=== PATIENT | female | born 1985 | race Caucasian/White ===

== ENCOUNTER 2022-01-18 22:10 | Emergency (ER) | payer OTHER, SELFPAY ==
--- NOTE | 2022-01-18 22:24 | CRLHL7_ITS ---
For Patients: As a result of the Century Cures Act, medical imaging exams and procedure reports are released immediately into your electronic medical record. You may view this report before your referring provider. If you have questions, please contact your health care provider. Indication: Shortness of breath Technique: Chest 1 view Comparison: Chest CT October 21, 2011 Findings/Impression: Cardiovascular and mediastinum: Status post median sternotomy. Heart size and vasculature are normal in caliber and appearance. Mediastinum is within normal limits. Lungs and pleural space: Lungs are clear. No sign of infiltrate or mass. No sign of pleural effusion. No pneumothorax. Bones and soft tissues: No significant findings. Dictated by Génesis Mas MD @ 01/18/2022 11:19:46 PM (Electronically Signed)
--- NOTE | 2022-01-18 22:27 | CRLHL7_ITS ---
For Patients: As a result of the Century Cures Act, medical imaging exams and procedure reports are released immediately into your electronic medical record. You may view this report before your referring provider. If you have questions, please contact your health care provider. INDICATION: Shortness of breath. COMPARISON: CT chest, abdomen, pelvis 10/21/2011. Chest radiograph 01/18/2022. TECHNIQUE: CT of the chest with 95 cc of Isovue 370 IV contrast. Coronal and sagittal reconstructions. FINDINGS: Normal heart size. Normal caliber thoracic aorta and central pulmonary arteries. Interval postoperative changes of sternotomy with aortic valve replacement. Retained epicardial pacer wires. Negative for acute pulmonary embolism. No pericardial effusion. No thoracic lymphadenopathy. The imaged thyroid gland is normal in appearance. No focal consolidation, pleural effusion, or pneumothorax. Stable 4 mm noncalcified pulmonary nodule in the lateral right lower lobe which is unchanged since 2012 and should be benign (series 5, image 105). No central endobronchial lesion or bronchial wall thickening. The visualized upper abdomen is unremarkable. The bones are within normal limits. IMPRESSION: 1. Negative for acute pulmonary embolism. No other acute findings in the chest. 2. Interval sternotomy with aortic valve replacement. Please note that all CT scans at this facility use dose modulation, iterative reconstruction, and/or weight-based dosing when appropriate to reduce radiation dose to as low as reasonably achievable. Dictated by Lucille Bills MD @ 01/19/2022 12:20:28 AM (Electronically Signed)
--- NOTE | 2022-01-18 22:27 | ED_ITS ---
HPI - General Adult General Time Seen by Provider: :20 <Jake Mcdonald MD - Last Filed: 01/18/22 23:03> Date Seen: 01/18/22 <Jake Mcdonald MD - Last Filed: 01/18/22 23:03> Chief complaint: Shortness of Breath/Dyspnea <Jake Mcdonald MD - Last Filed: 01/18/22 23:03> Stated complaint: Chest pain, SOB, post open heart surgery <Jake Mcdonald MD - Last Filed: 01/18/22 23:03> Time Seen by Provider: 01/18/22 22:26 <Jake Mcdonald MD - Last Filed: 01/18/22 23:03> Source: patient and old records reviewed <Jake Mcdonald MD - Last Filed: 01/18/22 23:03> Mode of arrival: ambulatory <Jake Mcdonald MD - Last Filed: 01/18/22 23:03> Limitations: no limitations <Jake Mcdonald MD - Last Filed: 01/18/22 23:03> History of Present Illness HPI narrative: 36-year-old female who presents today with shortness of breath. She had an aortic valve replacement about 10 months ago. She has had increased shortness of breath which is been ongoing but significantly worse in the last 2 days, developed some chest tightness tonight as well. She has been taking diuretic and is down about 12 lb. Denies cough. Did have orthopnea but since her diuresis says that is improved. Denies nausea, vomiting, diarrhea. No fevers or chills. She has noted that her heart rate has been high, took an extra 50 mg of metoprolol today. <Jake Mcdonald MD - Last Filed: 01/18/22 23:03> Related Data Home medications: Home Medications Medication Instructions Recorded Confirmed dextroamphetamine-amphetamine .ROUTE 01/18/22 furosemide 20 mg tablet mg 01/18/22 metoprolol tartrate 25 mg tablet mg 01/18/22 potassium chloride 20 mEq meq PO 01/18/22 tablet,extended release warfarin 3 mg tablet mg 01/18/22 <Jake Mcdonald MD - Last Filed: 01/18/22 23:03> Allergies/adverse reactions: Allergies Allergy/AdvReac Type Severity Reaction Status Date / Time terbutaline Allergy Unknown Verified 01/18/22 22:47 <Jake Mcdonald MD - Last Filed: 01/18/22 23:03> Review of Systems Status of ROS: Reports: 10 or more systems reviewed and unremarkable except as noted in History and below <Jake Mcdonald MD - Last Filed: 01/18/22 23:03> [facility] Social History: Social History Smoking Status: Unknown if ever smoked Do you use any of these nicotine containing products: None Second hand tobacco smoke exposure: No How often do you have a drink containing alcohol: never How many standard drinks containing alcohol do you have on a typical day: 1 or 2 How often do you have six or more drinks on one occasion: Never AUDIT-C Alcohol total score: 0 Non-prescribed substance use: denies use <Jake Mcdonald MD - Last Filed: 01/18/22 23:03> Exam Narrative: Exam Narrative: General: Well-developed and well-nourished, anxious appearing with breathlessness and respiratory distress Head: Atraumatic and normocephalic Eyes: Pupils are equal reactive, extraocular motions intact, conjunctiva clear ENT: External nose and ears are normal, posterior pharynx without erythema or exudate Neck: No midline cervical tenderness, full spontaneous range of motion the neck, trachea midline, no adenopathy Heart: Tachycardic with slight valve click Lungs: Diminished in the bases bilaterally, no wheezes or crackles, tachypnea Abdomen: Soft, nontender, nondistended with active bowel sounds Musculoskeletal: No tenderness, deformity, or edema Neurologic: Awake, alert, and oriented x3, no gross focal neurologic deficits, cranial nerves intact as tested Psych: Mood and affect are appropriate Skin: No rashes <Jake Mcdonald MD - Last Filed: 01/18/22 23:03> Const: Vital Signs, click to edit/add: Vital Signs - 24 hr 01/18/22 22:37 01/18/22 23:00 01/18/22 22:57 Pulse Rate [Pulse Oximeter] 119 H 117 H 113 H Respiratory Rate 30 H 28 H 28 H Blood Pressure [Ri ght Upper Arm] 135/93 H 115/74 100/72 Pulse Oximetry 97 95 Oxygen Delivery Me thod Room Air Room Air 01/18/22 22:48 Pulse Rate [Pulse Oximeter] 112 H Respiratory Rate 24 Blood Pressure [Ri ght Upper Arm] 90/49 L Pulse Oximetry 95 Oxygen Delivery Me thod Room Air <Jake Mcdonald MD - Last Filed: 01/18/22 23:03> Vital Signs, click to edit/add: Vital Signs - 24 hr 01/18/22 22:37 01/18/22 23:00 01/18/22 22:57 Pulse Rate [Pulse Oximeter] 119 H 117 H 113 H Respiratory Rate 30 H 28 H 28 H Blood Pressure [Ri ght Upper Arm] 135/93 H 115/74 100/72 Pulse Oximetry 97 95 Oxygen Delivery Me thod Room Air Room Air 01/18/22 22:48 Pulse Rate [Pulse Oximeter] 112 H Respiratory Rate 24 Blood Pressure [Ri ght Upper Arm] 90/49 L Pulse Oximetry 95 Oxygen Delivery Me thod Room Air <Herb Martinez MD - Last Filed: 01/19/22 01:26> Documenting provider has reviewed patient's vital signs: yes <Jake Mcdonald MD - Last Filed: 01/18/22 23:03> Course Course Hospital Course: Patient seen and examined immediately on arrival, prior records reviewed. Differential diagnosis includes but not limited to acute heart failure, hemothorax, pneumothorax, pleural effusion, pulmonary embolism, dysrhythmia, pericardial effusion, acute coronary syndrome. Patient with aortic valve replacement about 10 months ago, presents with shortness of breath and chest pressure. On initial exam, oxygen saturation 98% on room air, patient is tachypneic and tachycardic with breathlessness, diminished breath sounds at the bases. Bedside ultrasound demonstrates question of trace pericardial effusion. Labs, EKG, x-ray ordered in CT PE protocol will be ordered as well. Risk of pulmonary embolism is low given the fact patient is not anticoagulated but will look for other intrathoracic findings that could cause symptoms including but not limited to pericardial effusion, pulmonary edema. <Jake Mcdonald MD - Last Filed: 01/18/22 23:03> Reevaluation(s) Reevaluation #1: Potassium 2.7 , Iv and oral replacement ordered. <Jake Mcdonald MD - Last Filed: 01/18/22 23:03> Time: 23:03 <Jake Mcdonald MD - Last Filed: 01/18/22 23:03> Reevaluation #2: CT of the chest was unremarkable. Her heart rate came down to about 115- 120. She short of breath with activity. Spoke with Cardiology and arrived at the discharge plan. I had initially hope to transfer her to [place] for an inpatient stay but they have no beds. <Herb Martinez MD - Last Filed: 01/19/22 01:26> Vital Signs Vital signs: Initial Vital Signs Temperature Source Temporal Artery Scan 01/18/22 22:37 Pulse Rate 119 H 01/18/22 22:37 Respiratory Rate 30 H 01/18/22 22:37 Blood Pressure 135/93 H 01/18/22 22:37 Blood Pressure Mean 107 01/18/22 22:37 Blood Pressure Position Supine 01/18/22 22:37 Oxygen Delivery Method 01/18/22 22:37 Vital Signs Pulse Rate 119 H 01/18/22 22:37 Respiratory Rate 30 H 01/18/22 22:37 Blood Pressure 135/93 H 01/18/22 22:37 Oxygen Delivery Method 01/18/22 22:37 Pulse Rate 117 H 01/18/22 23:00 Respiratory Rate 28 H 01/18/22 23:00 Blood Pressure 115/74 01/18/22 23:00 Pulse Oximetry 97 01/18/22 23:00 Oxygen Delivery Method 01/18/22 23:00 <Jake Mcdonald MD - Last Filed: 01/18/22 23:03> Initial Vital Signs Temperature Source Temporal Artery Scan 01/18/22 22:37 Pulse Rate 119 H 01/18/22 22:37 Respiratory Rate 30 H 01/18/22 22:37 Blood Pressure 135/93 H 01/18/22 22:37 Blood Pressure Mean 107 01/18/22 22:37 Blood Pressure Position Supine 01/18/22 22:37 Oxygen Delivery Method 01/18/22 22:37 Vital Signs Pulse Rate 119 H 01/18/22 22:37 Respiratory Rate 30 H 01/18/22 22:37 Blood Pressure 135/93 H 01/18/22 22:37 Oxygen Delivery Method 01/18/22 22:37 Pulse Rate 117 H 01/18/22 23:00 Respiratory Rate 28 H 01/18/22 23:00 Blood Pressure 115/74 01/18/22 23:00 Pulse Oximetry 97 01/18/22 23:00 Oxygen Delivery Method 01/18/22 23:00 <Herb Martinez MD - Last Filed: 01/19/22 01:26> Medical Decision Making Medical Records Medical records reviewed: Yes I reviewed the patient's medical records <Jake Mcdonald MD - Last Filed: 01/18/22 23:03> Lab Data Lab results reviewed: Yes I reviewed the patient's lab results <Jake Mcdonald MD - Last Filed: 01/18/22 23:03> Labs: Lab Results 01/18/22 01/18/22 01/18/22 Range/Units 22:23 22:23 22:23 WBC 8.55 (4.50-11.00) K/uL RBC 5.51 H (4.00-5.20) m/uL Hgb 14.5 (12.0-16.0) gm/dL Hct 44.0 (33.0-51.0) % MCV 80 (80-100) fL MCH 26 (26-34) pg MCHC 33 (32-36) gm/dL RDW Coeff of Riley 12.6 (11.5-15.5) % Plt Count 351 (140-440) K/uL Neut % (Auto) 63.2 (42.0-72.0) % Lymph % (Auto) 25.1 (20-44) % Mitchell % (Auto) 9.8 (0.0-11.0) % Eos % (Auto) 0.8 (0.0-7.0) % Baso % (Auto) 0.7 (0.0-3.0) % Neut # (Auto) 5.40 (1.7-7.0) K/uL Lymph # (Auto) 2.15 (0.90-2.90) K/uL Mitchell # (Auto) 0.80 (0.00-0.90) K/UL Eos # (Auto) 0.07 (0.00-0.50) K/uL Baso # (Auto) 0.06 (0.00-0.30) K/uL Abs Immat Gran (auto) 0.03 (0.00-0.30) K/uL INR 2.37 H (0.91-1.10) Sodium 133 L (135-149) mmol/L Potassium 2.7 L* (3.6-5.1) mmol/L Chloride 94 L (96-114) mmol/L Carbon Dioxide 26 (20-32) mmol/L BUN 13 (5-24) mg/dL Creatinine 0.8 (0.5-1.5) mg/dL Estimated Creat Clear 93.63 Estimated GFR 97 ml/min Glucose 177 H (60-115) mg/dL Calcium 9.5 (8.4-10.6) mg/dL Magnesium 1.8 (1.5-2.6) mg/dL NT-Pro-B Natriuret Pep 60 (0-125) PG/mL SARS-CoV-2 (PCR) (Negative) Influenza Type A (PCR) (Negative) Influenza Type B (PCR) (Negative) POC Troponin I (0.01-0.04) ng/ml 01/18/22 01/18/22 Range/Units 22:27 22:27 WBC (4.50-11.00) K/uL RBC (4.00-5.20) m/uL Hgb (12.0-16.0) gm/dL Hct (33.0-51.0) % MCV (80-100) fL MCH (26-34) pg MCHC (32-36) gm/dL RDW Coeff of Riley (11.5-15.5) % Plt Count (140-440) K/uL Neut % (Auto) (42.0-72.0) % Lymph % (Auto) (20-44) % Mitchell % (Auto) (0.0-11.0) % Eos % (Auto) (0.0-7.0) % Baso % (Auto) (0.0-3.0) % Neut # (Auto) (1.7-7.0) K/uL Lymph # (Auto) (0.90-2.90) K/uL Mitchell # (Auto) (0.00-0.90) K/UL Eos # (Auto) (0.00-0.50) K/uL Baso # (Auto) (0.00-0.30) K/uL Abs Immat Gran (auto) (0.00-0.30) K/uL INR (0.91-1.10) Sodium (135-149) mmol/L Potassium (3.6-5.1) mmol/L Chloride (96-114) mmol/L Carbon Dioxide (20-32) mmol/L BUN (5-24) mg/dL Creatinine (0.5-1.5) mg/dL Estimated Creat Clear Estimated GFR ml/min Glucose (60-115) mg/dL Calcium (8.4-10.6) mg/dL Magnesium (1.5-2.6) mg/dL NT-Pro-B Natriuret Pep (0-125) PG/mL SARS-CoV-2 (PCR) Negative SARS-CoV-2 (Negative) Influenza Type A (PCR) Negative PCR FLU A (Negative) Influenza Type B (PCR) Negative PCR FLU B (Negative) POC Troponin I 0.00 L (0.01-0.04) ng/ml <Jake Mcdonald MD - Last Filed: 01/18/22 23:03> Lab Results 01/18/22 01/18/22 01/18/22 Range/Units 22:23 22:23 22:23 WBC 8.55 (4.50-11.00) K/uL RBC 5.51 H (4.00-5.20) m/uL Hgb 14.5 (12.0-16.0) gm/dL Hct 44.0 (33.0-51.0) % MCV 80 (80-100) fL MCH 26 (26-34) pg MCHC 33 (32-36) gm/dL RDW Coeff of Riley 12.6 (11.5-15.5) % Plt Count 351 (140-440) K/uL Neut % (Auto) 63.2 (42.0-72.0) % Lymph % (Auto) 25.1 (20-44) % Mitchell % (Auto) 9.8 (0.0-11.0) % Eos % (Auto) 0.8 (0.0-7.0) % Baso % (Auto) 0.7 (0.0-3.0) % Neut # (Auto) 5.40 (1.7-7.0) K/uL Lymph # (Auto) 2.15 (0.90-2.90) K/uL Mitchell # (Auto) 0.80 (0.00-0.90) K/UL Eos # (Auto) 0.07 (0.00-0.50) K/uL Baso # (Auto) 0.06 (0.00-0.30) K/uL Abs Immat Gran (auto) 0.03 (0.00-0.30) K/uL INR 2.37 H (0.91-1.10) Sodium 133 L (135-149) mmol/L Potassium 2.7 L* (3.6-5.1) mmol/L Chloride 94 L (96-114) mmol/L Carbon Dioxide 26 (20-32) mmol/L BUN 13 (5-24) mg/dL Creatinine 0.8 (0.5-1.5) mg/dL Estimated Creat Clear 93.63 Estimated GFR 97 ml/min Glucose 177 H (60-115) mg/dL Calcium 9.5 (8.4-10.6) mg/dL Magnesium 1.8 (1.5-2.6) mg/dL NT-Pro-B Natriuret Pep 60 (0-125) PG/mL SARS-CoV-2 (PCR) (Negative) Influenza Type A (PCR) (Negative) Influenza Type B (PCR) (Negative) POC Troponin I (0.01-0.04) ng/ml 01/18/22 01/18/22 Range/Units 22:27 22:27 WBC (4.50-11.00) K/uL RBC (4.00-5.20) m/uL Hgb (12.0-16.0) gm/dL Hct (33.0-51.0) % MCV (80-100) fL MCH (26-34) pg MCHC (32-36) gm/dL RDW Coeff of Riley (11.5-15.5) % Plt Count (140-440) K/uL Neut % (Auto) (42.0-72.0) % Lymph % (Auto) (20-44) % Mitchell % (Auto) (0.0-11.0) % Eos % (Auto) (0.0-7.0) % Baso % (Auto) (0.0-3.0) % Neut # (Auto) (1.7-7.0) K/uL Lymph # (Auto) (0.90-2.90) K/uL Mitchell # (Auto) (0.00-0.90) K/UL Eos # (Auto) (0.00-0.50) K/uL Baso # (Auto) (0.00-0.30) K/uL Abs Immat Gran (auto) (0.00-0.30) K/uL INR (0.91-1.10) Sodium (135-149) mmol/L Potassium (3.6-5.1) mmol/L Chloride (96-114) mmol/L Carbon Dioxide (20-32) mmol/L BUN (5-24) mg/dL Creatinine (0.5-1.5) mg/dL Estimated Creat Clear Estimated GFR ml/min Glucose (60-115) mg/dL Calcium (8.4-10.6) mg/dL Magnesium (1.5-2.6) mg/dL NT-Pro-B Natriuret Pep (0-125) PG/mL SARS-CoV-2 (PCR) Negative SARS-CoV-2 (Negative) Influenza Type A (PCR) Negative PCR FLU A (Negative) Influenza Type B (PCR) Negative PCR FLU B (Negative) POC Troponin I 0.00 L (0.01-0.04) ng/ml <Herb Martinez MD - Last Filed: 01/19/22 01:26> Imaging Data Chest x-ray: Attestation: I have reviewed the pertinent imaging results. <Jake Mcdonald MD - Last Filed: 01/18/22 23:03> My impression: Sternal wires, no hemothorax or pneumothorax, no pleural effusion, no pulmonary edema <Jake Mcdonald MD - Last Filed: 01/18/22 23:03> CT scan - chest: Attestation: I have reviewed the pertinent imaging results. <Jake Mcdonald MD - Last Filed: 01/18/22 23:03> ECG Data Attestation: I personally reviewed and interpreted this ECG as follows: <Jake Mcdonald MD - Last Filed: 01/18/22 23:03> Prior ECG tracings: not available for review <Jake Mcdonald MD - Last Filed: 01/18/22 23:03> Interpretation: Or EKG personally reviewed and interpreted by me performed at 10:31 p.m. demonstrates sinus tachycardia rate 122, diffuse nonspecific ST changes without acute ST elevations, normal axis, QTC 387. No prior for comparison. <Jake Mcdonald MD - Last Filed: 01/18/22 23:03> Discharge Plan Discharge Clinical Impression: Acute hypokalemia, Congestive heart failure, Sinus tachycardia <Jake Mcdonald MD - Last Filed: 01/18/22 23:03> Patient Disposition: Home, Self-Care <Jake Mcdonald MD - Last Filed: 01/18/22 23:03> Condition: Improved <Jake Mcdonald MD - Last Filed: 01/18/22 23:03> Additional Instructions: Increase Metoprolol to 100 mg twice a day. Increase potassium to 40 meQ twice a day. Hold Adderall. Follow up with Cardiology [facility]. <Jake Mcdonald MD - Last Filed: 01/18/22 23:03> Prescriptions: No Action warfarin 3 mg tablet Label Comments: take 2 tablets by mouth on monday and monday; then 3 tablets on all other days or as directed. furosemide 20 mg tablet Label Comments: Take 1 Tablet (20 mg) by mouth 2 times daily metoprolol tartrate 25 mg tablet Label Comments: TAKE 1/2 TABLET BY MOUTH 2 TIMES DAILY, MAY TAKE AN EXTRA TAB ONCE FOR PERSISTENTLY ELEVATED HEART potassium chloride 20 mEq tablet extended release PO Label Comments: Take 2 Tablets (40 mEq) by mouth once daily with a meal. dextroamphetamine-amphetamine [Adderall] .ROUTE <Jake Mcdonald MD - Last Filed: 01/18/22 23:03> Follow Up/Referrals: Veronica Maya PA-C [Referring] - <Jake Mcdonald MD - Last Filed: 01/18/22 23:03> Stand Alone Forms: [employer] Info Instructions <Jake Mcdonald MD - Last Filed: 01/18/22 23:03>
[2022-01-18 22:37] VITALS: BP 135/93; PULSE 119; RESP 30; BMI 33.2
[2022-01-18 22:48] VITALS: BP 90/49; PULSE 112; RESP 24; O2SAT 95
[2022-01-18 22:51] LABS: Chloride* 94 mmol/L (96-114); Sodium* 133 mmol/L (135-149)
[2022-01-18 22:54] LABS: Creatinine* 0.8 mg/dL (0.5-1.5); Est. Creatinine Clearance* 93.63; Estimated Glomerular Filt Rate 97 ml/min
[2022-01-18 22:55] LABS: Blood Urea Nitrogen* 13 mg/dL (5-24); Calcium* 9.5 mg/dL (8.4-10.6); Carbon Dioxide* 26 mmol/L (20-32); Glucose* 177 mg/dL (60-115)
[2022-01-18 22:56] LABS: INR 2.37 (0.91-1.10); Prothrombin Time 26.3 Seconds
[2022-01-18 22:57] VITALS: BP 100/72; PULSE 113; RESP 28; O2SAT 95
[2022-01-18 22:57] LABS: Basophils Absolute Auto 0.06 K/uL (0.00-0.30); Basophils Percent Auto 0.7 % (0.0-3.0); Eosinophils Absolute Auto 0.07 K/uL (0.00-0.50); Eosinophils Percent Auto 0.8 % (0.0-7.0); Hemoglobin* 14.5 gm/dL (12.0-16.0); Immature Granulocytes Abs Auto 0.03 K/uL (0.00-0.30); Lymphocytes Absolute Auto 2.15 K/uL (0.90-2.90); Lymphocytes Percent Auto 25.1 % (20-44); Mean Corpuscular HGB Conc 33 gm/dL (32-36); Mean Corpuscular Hemoglobin 26 pg (26-34); Mean Corpuscular Volume 80 fL (80-100); Monocytes Percent Auto 9.8 % (0.0-11.0); Neutrophils Percent Auto 63.2 % (42.0-72.0); Platelet Count* 351 K/uL (140-440); RDW Coefficient of Variation % 12.6 % (11.5-15.5); Red Blood Count 5.51 m/uL (4.00-5.20); White Blood Count* 8.55 K/uL (4.50-11.00)
[2022-01-18 23:00] VITALS: BP 115/74; PULSE 117; RESP 28; O2SAT 97
[2022-01-18 23:00] LABS: Potassium* 2.7 mmol/L (3.6-5.1)
[2022-01-18 23:01] LABS: Slide Review Reflex No
[2022-01-18 23:04] LABS: NT Pro B Type NatriureticPept* 60 PG/mL (0-125)
[2022-01-18 23:13] LABS: Magnesium* 1.8 mg/dL (1.5-2.6)
[2022-01-18] MEDS: POTASSIUM CHLORIDE 10 MEQ/100 ML PIGGYBACK 100 MEQ IVPB (23:23)
[2022-01-18] MEDS: POTASSIUM CHLORIDE 10 MEQ CAPSULE ER 40 MEQ PO (23:23)
[2022-01-18 23:29] LABS: PCR FLU A Negative PCR FLU A (Negative); PCR FLU B Negative PCR FLU B (Negative); SARS PCR* Negative SARS-CoV-2 (Negative)
--- OUTSIDE RECORDS SUMMARY | 2022-01-18 23:48 | XMS_ITS | Clinical Summary ---
:1985 Author Organization [employer] [facility] [place] [address] Care Team Providers Name Role Phone Elina Jeronimo DO Primary Care Provider Allergies Active Allergy Reactions Severity Noted Date Comments Terbutaline Respiratory Distress, Shortness Of Breath 03/07/2009 Medications Medication Sig Dispensed Refills Start End Status Date Date aspirin chewable 81 Chew 1 Tablet by 30 Tablet 3 Active mg chewable mouth once 1 tabletIndications: daily. S/P AVR (aortic valve replacement) escitalopram Take 1 Tablet 90 tablet. 3 Ac tive oxalate (LEXAPRO) (20 mg) by mouth 2 20 mg once daily. tabletIndications: Anxiety fluticasone (50 mcg Inhale 2 Sprays 11.1 mL 5 Active per actuation) into affected 2 nasal solution nostril(s) once (FLONASE)Indication daily. s: Chronic nasal congestion, Post-nasal drainage, Chronic sinusitis, unspecified location metoprolol tartrate Take 1 Tablet 135 Tablet 3 Active (LOPRESSOR) 50 mg (50 mg) by mouth 2 tabletIndications: 2 times daily. Palpitations TAKE 1 & 1/2 TABS BY MOUTH 2 TIMES DAILY, MAY TAKE EXTRA TAB FOR PERSISTENTLY ELEVATED HEART RATES Amphetamine-Dextroa Take 1 Tablet 60 Tablet 0 Active mphetamine (30 mg) by mouth 2 022 (AdderalL) 30 mg in the morning tabletIndications: and 1 Tablet (30 Attention deficit mg) in the hyperactivity evening. disorder (ADHD), unspecified ADHD type Amphetamine-Dextroa Take 1 Tablet 60 Tablet 0 Active mphetamine (30 mg) by mouth 2 (AdderalL) 30 mg in the morning tabletIndications: and 1 Tablet (30 Attention deficit mg) in the hyperactivity evening. disorder (ADHD), unspecified ADHD type warfarin (COUMADIN) Take by mouth 6 250 Tablet 0 Active 3 mg mg (3 mg x 2) 2 tabletIndications: every Mon, Fri; S/P AVR (aortic 9 mg (3 mg x 3) valve replacement), all other days Aortic valve or as directed. insufficiency, etiology of cardiac valve disease unspecified, Anticoagulation monitoring, INR range 2-3, Anticoagulation goal of INR 2 to 3 potassium chloride Take 2 Tablets 180 Tablet 0 Active (K-DUR) 20 mEq (40 mEq) by 2 Extended-Release mouth once daily tabletIndications: with a meal. Hypokalemia torsemide (DEMADEX) Take 40 mg (two 270 Tablet 3 Active 20 mg tablets) by 2 tabletIndications: mouth in the am, SOB (shortness of and then take 20 breath), Nocturnal mg (1 tablet) by hypoxia, S/P AVR mouth in the (aortic valve afternoon. replacement), Aortic valve insufficiency, etiology of cardiac valve disease unspecified furosemide (LASIX) Take 1 Tablet 180 Tablet 3 Discontinued 20 mg (20 mg) by mouth 2 022 (*M ed tabletIndications: 2 times daily. complete/Regime S/P AVR (aortic n valve replacement), complete/Level Aortic valve of care change) insufficiency, etiology of cardiac valve disease unspecified warfarin (COUMADIN) Take by mouth 6 247 Tablet 0 14/06 Discontinued 3 mg mg (3 mg x 2) 2 022 (Reord er tabletIndications: every Mon, Fri; (E-cancel not Aortic valve 9 mg (3 mg x 3) s ent)) insufficiency, all other days etiology of cardiac Or as directed valve disease unspecified, S/P AVR (aortic valve replacement), Anticoagulation goal of INR 2 to 3, Anticoagulation monitoring, INR range 2-3 Amphetamine-Dextroa Take 1 Tablet 60 Tablet 0 mphetamine (30 mg) by mouth 2 022 (AdderalL) 30 mg in the morning tabletIndications: and 1 Tablet (30 Attention deficit mg) in the hyperactivity evening. disorder (ADHD), unspecified ADHD type torsemide (DEMADEX) Take 1 Tablet 180 Tablet 3 01/13 Discontinued 20 mg (20 mg) by mouth 2 022 (*M edication tabletIndications: twice daily 12 adjustment) SOB (shortness of hours apart. breath), Nocturnal hypoxia, S/P AVR (aortic valve replacement), Aortic valve insufficiency, etiology of cardiac valve disease unspecified potassium chloride Take 2 Tablets 180 Tablet 0 01/12 Discontinued (K-DUR) 20 mEq (40 mEq) by 2 022 (Re order Extended-Release mouth once daily (E-cancel not tabletIndications: with a meal. sent)) Hypokalemia Active Problems Problem Noted Date Anticoagulation monitoring, INR range 2-3 05/13/2021 Aortic valve insufficiency, etiology of cardiac valve disease unspecified 02/22/2021 S/P AVR (aortic valve replacement) 02/17/2021 Overview: 02/17/2021 On-X prosthetic heart valve s ize 23, lifelong anticoagulation goal INR 2-3 unless cardiology directed Anticoagulation goal of INR 2 to 3 02/17/2021 Overview: Lifelong due to mechanical heart valve Vitamin D deficiency 07/06/2018 Major Depression, Recurrent, Mild 07/24/2008 Rule out Gambling, Pathological 07/24/2008 Generalized anxiety disorder 05/23/2008 Migraine, unspecified, without mention of intractable migraine without 06/12/2007 mention of status migrainosus Pap smear for cervical cancer screening Overview: 05/2021 NIL/HPV negative. Plan: Pap/HPV due 05/2026 Resolved Problems Problem Noted Date Resolved Date Major Depression, Recurrent, Moderate 05/23/2008 Rule out emerging Panic Disorder without Agoraphobia 009 06/06/2008 RIGHT SIDED MESENTERIC ADENITIS 06/25/2007 11/21/19 12 C DIFF COLITIS 06/25/2007 11/21/2011 RIGHT CALF PAIN 06/25/2007 11/21/2011 Nausea with vomiting 06/25/2007 11/21/2011 Dysthymic disorder 06/12/2007 05/23/2008 Overview: On Wellbutrin XL and she feels like she is not herself and would rather go back to Wellbutrin SR mata works better Anxiety state, unspecified 06/12/2007 05/23/2008 Encounters Date Type Specialty Care Team Description 01/18/2022 Telephone Amelia Morrow Follow Up MD [place] 01/13/2022 Telephone Amelia Morrow Follow Up MD [place] 01/12/2022 Ancillary Procedure 01/12/2022 Office Visit Elina Jeronimo Establish Care Alla, DO 01/12/2022 Orders Only Lab, [facility] 01/12/2022 Nurse/Clinic Staff Only Flu Shot; Immunization/In jection 01/12/2022 Travel 01/12/2022 Telephone 1, [facility] Anticoagulation (Yearly Clinic Anticoagulation Orders ) 01/12/2022 Telephone 1, [facility] Error-please [facility] 01/12/2022 Telephone 1, [facility] Refill Request (Warfarin Clinic ) 01/11/2022 Anticoagulation 1, [facility] ([facility]) (warfarin) Clinic 12/29/2021 Telephone Sudhakar Kwon (Orders Johana [place] ) 12/29/2021 Anticoagulation 1, [facility] ([facility]) (warfarin) Clinic 12/28/2021 Orders Only Lab, [facility] 12/28/2021 Office Visit Amelia Morrow Consult (New co nsultMaycol MD dyspnea); Rosy rns (sob) 12/28/2021 Telephone Amelia Morrow Results (Lab) MD [place] 12/28/2021 Travel 12/27/2021 Telephone Veronica Maya Anticoagula tion (Needs CIRO Dejesus to establish ca re) 12/26/2021 Travel 12/08/2021 Telemedicine Alexander Singh MD Sleep Consul t; Telehealth (Vir tual visit, no vital s taken) 12/08/2021 Travel 12/05/2021 Anticoagulation 1, [facility] ([facility]) (warfarin) Clinic 12/01/2021 Ancillary Procedure 12/01/2021 Office Visit Veronica Maya Abscess (Al most done CIRO Dejesus with Augmentin. Not improving ); So b 12/01/2021 Travel 11/30/2021 Emergency 11/24/2021 Telephone Veronica Maya Anticoagula tion (BPA CIRO Dejesus augmentin/warfa rin) 11/22/2021 Office Visit Julio Patten Sores In Mouth (Cony Her MD left side gum a mohan) 11/22/2021 Travel 11/19/2021 Anticoagulation 1, [facility] ([facility]farin) Clinic ([facility]/) 11/12/2021 Office Visit Veronica Maya Shortness O f Breath; CIRO Dejesus Weight; Leg Swe lling (Started after surgery in Jan 2021/For the past 1 1/2 months sy mptoms have gotten wor se) 11/11/2021 Travel 11/10/2021 Orders Only <No scans attac hed> 11/09/2021 Travel 11/05/2021 Telephone Veronica Maya Anticoagula tion (CIRO Manuel form needed) 11/04/2021 Telephone Veronica Maya Anticoagula tion (No CIRO Dejesus contact) 10/30/2021 Anticoagulation 1, [facility] ([facility]) (warfarin) Clinic 10/29/2021 Ancillary Procedure 10/29/2021 Travel 10/27/2021 Telephone Veronica Maya Anticoagula tion (Form CIRO Dejesus needed for Home monitor application) 10/26/2021 Nurse/Clinic Staff Only Immu nization/Injection (TDAP BOOSTER); Immunization/In jection 10/26/2021 Travel 10/20/2021 Anticoagulation 1, [facility] ([facility]farin) Clinic 10/19/2021 Anticoagulation Veronica Maya Error-pl ease disregard (warfarin) CIRO Dejesus (opened in erro r) from Last 3 Months Immunizations Name Administration Dates Next Due COVID-19 vaccine (Moderna 05/29/2020, 04/29/2020 100mcg/0.5mL) PF, MDV COVID-19 vaccine (Buzzmove 05/25/2021 30mcg/0.3mL) PF, MDV Hepatitis B (Adult) 03/21/2014, 05/02/2013, 03/07/2013 Influenza A (H1N1), Inactivated (Age 1103/24/2009 >=3 Years) Influenza Virus, Unspecified 03/19/2015, 03/21/2014, 013, 03/24/2009, 02/28/2007 Influenza, IIV3 (Age >=3 years) 02/28/2007 Influenza, IIV4 01/12/2022, 02/11/2021, 12/31/2019, 02/28/2019 Influenza, IIV4 (=>6mos) MDV 02/11/2021 Influenza, Inactivated IIV3 (Age 65+ 03/31/2018 Years) Preserv Free Influenza, Live, Intranasal Laiv3 02/28/2007 MMR 12/23/2020, 12/31/2019, 10/17/2002 MMR, Unspecified 03/21/2014, 10/17/2012 Meningococcal Vaccine 10/16/2002 Meningococcal Vaccine (Menactra) 10/16/2002 TD, UNSPECIFIED 05/12/2006 Td (Age >=7 Years) 05/12/2006 Td Adult (Tetanus And Diphtheria 05/12/2006 Toxoids, Not Adsorbed) Tdap 10/26/2021, 11/21/2011 11/20/2021 Tuberculin (PPD) 02/19/2013 Tuberculin Skin Test, Unspecified 02/19/2013 Varicella Vaccine 12/23/2020, 12/31/2019 Family History Medical History Relation Name Comments Diabetes Father Heart Disease Father Hypertension Father Cancer Maternal Grandfather stomach Good Health Maternal Grandfather in acc ident Good Health Maternal Grandmother Cancer Mother ovarian age 36, living Thyroid Disease Mother Good Health Paternal Grandmother in acc ident Good Health Sister Good Health Son Relation Name Status Comments Daughter Alive Father Alive Maternal Grandfather Alive Maternal Grandmother Alive Mother Alive Paternal Grandfather in acc ident Paternal Grandmother in acc ident Sister Alive Son Other Social History Tobacco Use Types Packs/Day Years Used Date Never Smoker Smokeless Tobacco: Never Used Tobacco Cessation: Counseling Given: Yes Alcohol Use Standard Drinks/Week Comments Not Currently 0 (1 standard drink = 0.6 oz pure alcoho l) once or twice a year Alcohol Habits Answer Date Recorded How often do you have a drink containing alcohol? Monthly or less 11/06/2018 How many drinks containing alcohol do you have on Not asked a typical day when you are drinking? How often do you have six or more drinks on one Not asked occasion? Comment: once or twice a year 02/11/2021 Sex Assigned at Date Recorded Not on file Travel History Travel Start Travel End [place] 12/20/2021 12/27/2021 COVID-19 Exposure Response Date Recorded In the last 10 days, have you been in contact with No / Unsu re 01/12/2022 3:14 PM CDT someone who was confirmed or suspected to have Coronavirus/COVID-19? Obstetrics History Para Term AB IAB SAB Ectopic Multiple Living Live Births 2 2 2 2 1 Date Outcome GA Total Labor/2nd/3rd Weight Sex Delivery Anes PTL Alla A 1 A5 Name Clin Labor 07/19 Term F Virgen John ng on 04/05 Term /2012 Last Filed Vital Signs Vital Sign Reading Time Taken Comments Blood Pressure 122/77 01/12/2022 3:38 PM CDT Pulse 91 01/12/2022 3:38 PM CDT Temperature 36.8 ??C (98.2 ??F) 12/01/2021 1:20 PM CDT Respiratory Rate 14 12/28/2021 7:53 AM CDT Oxygen Saturation 100% 01/12/2022 3:38 PM CDT Inhaled Oxygen Concentration - - Weight 102 kg (224 lb 12.8 oz) 01/12/2022 3:38 PM CDT Height 170.2 cm (5' 7) 12/28/2021 7:53 AM CDT Body Mass Index 35.21 12/28/2021 7:53 AM CDT Plan of Treatment Upcoming Encounters Date Type Specialty Care Team Description 02/07/2022 Appointment 02/07/2022 Appointment Health Maintenance Due Date Last Done Comments Depression screening for age 12+ 05/25/2022 05/25/2021, , 03/11/2021, Additional history exists BMI (ht and wt on same day) for 12/28/2022 12/28/2021, 05/02, age 18+ 03/23/2021, Additional history exists Pap test for age 21-65 05/25/2026 05/25/2021, 05/25/2021, 11/29/2017 (Completed outside of [facility]), Additional history exists Tetanus booster 10/27/2031 10/26/2021, 11/21/2011, 05/12/2006, Additional history exists Hepatitis C screening for age Completed 07/28/2008 18-79 COVID-19 vaccine series Completed 05/25/2021, 05/29/2020, 04/29/2020 Tdap Completed 10/26/2021, 11/21/2011 Influenza for age 9-49 Completed 01/12/2022, 02/11/2021, 02/11/2021, Additional history exists Medical Devices Implanted Type Area Route Sales Person Device Shelf Model / Identifier Expiration Serial / Date Lot Plate Sternal X 8 Hole Sterna Lock - [id number] N/A: [employer] [id number] / Implanted: Qty: 3 on 02/17/2021 by Laura Sears MD at [facility] Sternum / Procedures Procedure Name Priority Date/Time Associated Comments Diagnosis XR CHEST 2 VIEWS PA Routine 01/12/2022 4:35 PM Acute dyspnea R esults for this AND LATERAL CDT procedure are i n the results section. VITAMIN D 25 Routine 01/12/2022 4:32 PM Fatigue, Results f or this (DEFICIENCY) CDT unspecified type procedure a re in the results section. TSH WITH REFLEX Add On 01/12/2022 3:28 PM Fatigue, Result s for this CDT unspecified type procedure a re in the results section. BASIC METABOLIC PANEL Routine 01/12/2022 3:28 PM Hypokalemia Results for this CDT procedure are i n the results section. HOME MONITOR AC Routine 01/11/2022 12:00 Results for this AM CDT procedure are i n the results section. HOME MONITOR AC Routine 12/29/2021 12:00 Results for this AM CDT procedure are i n the results section. MAGNESIUM Routine 12/28/2021 8:42 AM SOB (shortness of Resu lts for this CDT breath) procedure are in Nocturnal hypoxi a the results S/P AVR (aortic section. valve replacemen t) Aortic valve insufficiency, etiology of cardiac valve disease unspecified BRAIN NATRIURETIC Routine 12/28/2021 8:42 AM SOB (shortness of Results for this PEPTIDE CDT breath) procedure are in Nocturnal hypoxi a the results S/P AVR (aortic section. valve replacemen t) Aortic valve insufficiency, etiology of cardiac valve disease unspecified BASIC METABOLIC PANEL Routine 12/28/2021 8:42 AM SOB (shortnes s of Results for this CDT breath) procedure are in Nocturnal hypoxi a the results S/P AVR (aortic section. valve replacemen t) Aortic valve insufficiency, etiology of cardiac valve disease unspecified EKG 12 LEAD Routine 12/28/2021 7:59 AM SOB (shortness of Resu lts for this CDT breath) procedure are i n the results section. HOME MONITOR AC Routine 12/05/2021 12:00 Results for this AM CDT procedure are i n the results section. BLOOD CULTURE Routine 12/01/2021 2:50 PM Dental absces s Results for this CDT S/P AVR (aortic procedure ar e in valve replacement) the resul ts section. CBC WITH AUTO Routine 12/01/2021 2:45 PM Dental abscess Result s for this DIFFERENTIAL CDT procedure are i n the results section. BLOOD CULTURE Routine 12/01/2021 2:45 PM Dental absces s Results for this CDT S/P AVR (aortic procedure ar e in valve replacement) the resul ts section. SEDIMENTATION RATE Routine 12/01/2021 2:45 PM Dental abscess R esults for this CDT procedure are i n the results section. CBC WITH AUTO Routine 12/01/2021 2:45 PM Dental abscess Result s for this DIFFERENTIAL CDT procedure are i n the results section. CT FACIAL BONES W STAT 12/01/2021 2:35 PM Dental absc ess Results for this CDT Left facial procedure are i n swelling the results section. CBC WITH AUTO STAT 11/30/2021 3:01 PM Results for this DIFFERENTIAL CDT procedure are i n the results section. LACTATE VENOUS STAT 11/30/2021 3:01 PM Results for this CDT procedure are i n the results section. CBC WITH AUTO STAT 11/30/2021 3:01 PM Results for this DIFFERENTIAL CDT procedure are i n the results section. COMP METABOLIC PANEL STAT 11/30/2021 3:01 PM R esults for this CDT procedure are i n the results section. HOME MONITOR AC Routine 11/19/2021 12:00 Results for this AM CDT procedure are i n the results section. CBC WITH AUTO STAT 11/12/2021 11:35 S/P AVR (aortic Results for this DIFFERENTIAL AM CDT valve replacemen t) procedure are in Pitting edema the results SOB (shortness of section. breath) Bloating FERRITIN STAT 11/12/2021 11:35 S/P AVR (aortic Results for this AM CDT valve replacemen t) procedure are in Pitting edema the results SOB (shortness of section. breath) Bloating PRO-BNP STAT 11/12/2021 11:35 S/P AVR (aortic Results for this AM CDT valve replacemen t) procedure are in Pitting edema the results SOB (shortness of section. breath) Bloating CBC WITH AUTO STAT 11/12/2021 11:35 S/P AVR (aortic Results for this DIFFERENTIAL AM CDT valve replacemen t) procedure are in Pitting edema the results SOB (shortness of section. breath) Bloating BASIC METABOLIC PANEL STAT 11/12/2021 11:35 S/P AVR (aortic Results for this AM CDT valve replacemen t) procedure are in Pitting edema the results SOB (shortness of section. breath) Bloating HEPATIC FUNCTION PANEL STAT 11/12/2021 11:35 S/P AVR (aorti c Results for this AM CDT valve replacemen t) procedure are in Pitting edema the results SOB (shortness of section. breath) Bloating ECHO COMPLETE WO Routine 11/10/2021 8:32 AM S/P AVR (aortic Re sults for this CONTRAST CDT valve replacement) procedure are in the results section. HOME MONITOR AC Routine 10/30/2021 12:00 Results for this AM CDT procedure are i n the results section. CT HEAD SINUS LANDMARX Routine 10/29/2021 8:35 AM Chronic nasa l Results for this WO CDT congestion procedure are in Post-nasal drain age the results Chronic sinusitis, section. unspecified location Velopharyngeal insufficiency, acquired HOME MONITOR AC Routine 10/19/2021 12:00 Results for this AM CDT procedure are i n the results section. from Last 3 Months Results XR CHEST 2 VIEWS PA AND LATERAL (01/12/2022 4:35 PM CDT) Anatomical Region Laterality Modality CHEST, THORAX, Lung, HEART Computed Radi ography Specimen (Source) Anatomical Collection Method Collection Time Re ceived Time Location / / Volume Laterality 01/13/2022 10:18 AM CDT Impressions 01/13/2022 10:18 AM CDT No acute findings. Dictated by Herb Reed MD @ Sep 15 2 10:18AM (Electronically Signed) ?? Narrative 01/13/2022 10:18 AM CDT For Patients: ??As a result of the Cures Act, medical imaging exams and procedure report s are released immediately into your [facility] medical record. ??You may view this report before your referring provider. ??If you have questions, please contact your health care provider. INDICATION: Acute dyspnea TECHNIQUE: Chest 2 views COMPARISON: 03/10/2021 FINDINGS: Cardiovascular and mediastinum: ??Postop erative changes to the mediastinum from aortic valve repair again noted. Cardiac silhouette is not enlarged. Normal contour of the descending thoracic aorta. Lungs and pleural spaces: ??Lungs are cl ear. ??No sign of infiltrate or mass. ??No sign of pleural effusion. ??No pneumothorax. Resolution of previously noted right pleural effusion. Bones and soft tissues: ??No significant findings. Procedure Note Herb Reed MD - 01/13/2022For matting of this note might be different from the original. For Patients: As a result of the Cures Act, medical imaging exams and procedure reports are released immediately into your electronic medical record. You may view this report before your referring provider. If you have questions, please contact [facility] health care provider. INDICATION: Acute dyspnea TECHNIQUE: Chest 2 views COMPARISON: 03/10/2021 FINDINGS: Cardiovascular and mediastinum: Postoper ative changes to the mediastinum from aortic valve repair again noted. Cardiac silhouette is not enlarged. Normal contour of the descending thoracic aorta. Lungs and pleural spaces: Lungs are elroy r. No sign of infiltrate or mass. No sign of pleural effusion. No pneumothorax. Resolution of previously noted right pleural effusion. Bones and soft tissues: No significant f indings. IMPRESSION: No acute findings. Dictated by Herb Reed MD @ Sep 15 2 10:18AM (Electronically Signed) Elina Alla Kandace DO GENERAL IMAGING (ABNORMAL) VITAMIN D 25 (DEFICIENCY) (01/12/2022 4:32 PM CDT) Analysis Performed At Patho logist Time Signature VITAMIN D 24.7 (L) 30.0 - 01/13/2022 [facility] TOTAL 80.0 ng/mL 8:01 PM CDT LABORATORY[facility] Specimen Anatomical Collection Method / Collection Time Recei elida Time (Source) Location / Volume Laterality Blood BLOOD SPECIMEN / Venipuncture / 01/12/2022 4:32 2021 4:34 Unknown Unknown PM CDT PM CDT Narrative [facility] LABORATORY-CENTRAL LABOR OR - 01/13/2022 8:01 PM CDT Deficiency: ? <20 ng/mL Insufficiency: ?20-29 ng/mL Sufficiency: ?30-80 ng/mL Possible Toxicity: ??>80 ng/mL Based on [place] [facility] recommend ations [employer] Kandace DO SEND OUTS Performing Organization Address City/[facility] Phon e Number [facility] [address] [place] [address] LABORATORY-CENTRAL 2000 LABORATORY TSH WITH REFLEX (01/12/2022 3:28 PM CDT) P athologist Signature TSH 1.28 0.35 - 4.94 01/13/2022 [facility] uIU/mL 7:00 AM CDT LABORATORY-CENTR AL LABORATORY Specimen Anatomical Collection Method / Collection Time Recei elida Time (Source) Location / Volume Laterality Blood BLOOD SPECIMEN / Venipuncture / 01/12/2022 3:28 2021 3:32 Unknown Unknown PM CDT PM CDT Narrative [facility] LABORATORY-[facility] - 01/13/2022 7:00 AM CDT In Adults, TSH values between 5.00 and 10.00 uIU/ml do not necessarily indicate the presence of Hyp othyroidism. Correlation with clinical findings such as presence of goiter and/or Thyroperoxidase (TPO) Antibody ma y be helpful. For more information please refer to JULIET 20 ; [phone]: [phone]. Elina [email or web address] Kandace MIRANDA CHEMISTRY Performing Organization Address City/[facility] Phon e Number [employer] [address] [place] [address] LABORATORY-CENTRAL 2000 LABORATORY (ABNORMAL) BASIC METABOLIC PANEL (01/12/2022 3:28 PM CDT)Only the most recent of 3 resultswithin the time period is included. P athologist Signature SODIUM 138 135 - 145 01/13/2022 [facility] mmol/L 6:33 AM CDT LAB[facility]AT[facility] POTASSIUM 3.8 3.5 - 5.0 01/13/2022 [facility] mmol/L 6:33 AM CDT [facility] CHLORIDE 109 98 - 110 01/13/2022 [facility] mmol/L 6:33 AM CDT [facility] CO2,TOTAL 21 21 - 31 01/13/2022 [facility] mmol/L 6:33 AM CDT [facility] ANION GAP 8 5 - 18 01/13/2022 [facility] 6:33 AM CDT [facility] GLUCOSE 79 65 - 100 01/13/2022 [facility] mg/dL 6:33 AM CDT [facility] CALCIUM 9.2 8.5 - 10.5 01/13/2022 [facility] mg/dL 6:33 AM CDT [facility] BUN 17 8 - 25 01/13/2022 [facility] mg/dL 6:33 AM CDT [facility] CREATININE 0.78 0.57 - 01/13/2022 [facility] 1.11 mg/dL 6:33 AM CDT [facility] BUN/CREAT RATIO 22 (H) 10 - 20 01/13/2022 [facility] 6:33 AM CDT LAB[facility] eGFR >90 >90 01/13/2022 [facility] mL/min/1.7 6:33 AM CDT LABORATORY-[facility] 3m2 TRAL LABORATORY Comment: As of 2021, eGFR is calcu lated by the CKD-EPI creatinine equation without race adjustment. eGFR can be inf luenced by muscle mass, exercise, and diet. The reported eGFR is an estimation only and is only applicable if the renal function is stable. Specimen Anatomical Collection Method / Collection Time Recei elida Time (Source) Location / Volume Laterality Blood BLOOD SPECIMEN / Venipuncture / 01/12/2022 3:28 2021 3:32 Unknown Unknown PM CDT PM CDT Amelia Morrow MD CHEMISTRY Performing Organization Address City/State/ZIP Code Phon e Number [employer] [address] [place] [address] LABORATORY-CENTRAL 2000 LABORATORY HOME MONITOR AC (01/11/2022 12:00 AM CDT)Only the most recent of6 resultswithin the time period is included. athologist Signature PATIENT 2.6 2.00 - [facility] 3.00 MONITORING INR Specimen (Source) Anatomical Location Collection Method / Collectio n Time Received Time / Laterality Volume 01/11/2022 Veronica TANNER OTHER Performing Organization Address City/State/ZIP Code Phon e Number [facility] [address] [place] [address] BRAIN NATRIURETIC PEPTIDE (12/28/2021 8:42 AM CDT) athologist Signature BRAIN VIRIDIANA 86 <150 pg/mL 12/28/2021 [facility] PEPTIDE 9:33 AM CDT LABORATORY Specimen Anatomical Collection Method / Collection Time Recei elida Time (Source) Location / Volume Laterality Blood BLOOD SPECIMEN / Venipuncture / 12/28/2021 8:42 2021 8:43 Unknown Unknown AM CDT AM CDT Amelia Morrow MD CHEMISTRY Performing Organization Address City/State/ZIP Code Phon e Number [facility]OR[facility] SENDOUT INTERNAL ZIP [place], [place] [phone] [place] [address] MAGNESIUM (12/28/2021 8:42 AM CDT) athologist Signature MAGNESIUM 1.9 1.6 - 2.6 12/28/2021 [facility] mg/dL 9:33 AM CDT LABORATORY Specimen Anatomical Collection Method / Collection Time Recei elida Time (Source) Location / Volume Laterality Blood BLOOD SPECIMEN / Venipuncture / 12/28/2021 8:42 2021 8:43 Unknown Unknown AM CDT AM CDT Amelia Morrow MD CHEMISTRY Performing Organization Address City/State/ZIP Code Phon e Number [facility] SENDOUT INTERNAL ZIP [place], [place] [phone] [facility] EKG 12 LEAD (12/28/2021 7:59 AM CDT) [facility] Method Time Signature Interpretation Normal sinus rhythm Normal ECG Ventricular Rate 76 BPM Atrial Rate 76 BPM P-R Interval 148 ms QRS Duration 86 ms QT 416 ms QTc 468 ms P [place] 62 degrees R [place] 59 degrees T [place] 36 degrees Specimen Anatomical Collection Method Collection Time Receive d Time (Source) Location / / Volume Laterality 12/28/2021 7:59 AM 8:35 CDT AM CDT Amelia Morrow MD EKG ORD BLOOD CULTURE (12/01/2021 2:50 PM CDT)Only the most recent of2 resultswithin the time period is included. athologist Signature CULTURE No Growth. 12/06/2021 [employer] 10:28 PM CDT LABORATORY-[facility]ENT [facility]AL LABORATORY Specimen Anatomical Collection Method Collection Time Receive d Time (Source) Location / / Volume Laterality Blood BLOOD SPECIMEN / Butterfly / 12/01/2021 2:50 PM 12/01 2:53 Unknown Unknown CDT PM CDT Veronica TANNER MICROBIOLOGY Performing Organization Address City/State/ZIP Code Phon e Number [employer] [address] [address] LABORATORY-CENTRAL 2000 LABORATORY SEDIMENTATION RATE (12/01/2021 2:45 PM CDT) [facility] Method Time Signature SEDIMENTATION RATE 15 <20 mm/hr 12/01/2021 [facility] 11:13 PM CDT LABORATORY-[facility] TRAL LABORATORY Specimen Anatomical Collection Method Collection Time Receive d Time (Source) Location / / Volume Laterality Blood BLOOD SPECIMEN / Butterfly / 12/01/2021 2:45 PM 12/01 2:50 Unknown Unknown CDT PM CDT Veronica TANNER HEMATOLOGY Performing Organization Address City/State/ZIP Code Phon e Number [employer] [address] [place] [address] LABORATORY-CENTRAL 1999 LABORATORY (ABNORMAL) CBC WITH AUTO DIFFERENTIAL (12/01/2021 2:45 PM CDT)Only the most recent of3 resultswithin the time period is included. [facility] Method Time Signature WHITE BLOOD 4.6 4.5 - 12/01/2021 [facility] COUNT 11.0 2:54 PM [facility] mm RED BLOOD COUNT 4.52 4.00 - 12/01/2021 [facility] 5.20 2:54 PM CDT [facility]/ mm CLINIC HEMOGLOBIN 12.2 12.0 - 12/01/2021 [facility] 16.0 g/dL 2:54 PM CDT [facility] HEMATOCRIT 37.2 33.0 - 12/01/2021 [facility] 51.0 % 2:54 PM CDT [facility] MCV 82 80 - 100 12/01/2021 [facility] fL 2:54 PM CDT [facility] MCH 27.0 26.0 - 12/01/2021 [facility] 34.0 pg 2:54 PM CDT [facility] MCHC 32.8 32.0 - 12/01/2021 [facility] 36.0 g/dL 2:54 PM CDT [facility] RDW 14.3 11.5 - 12/01/2021 [facility] 15.5 % 2:54 PM CDT [facility] PLATELET COUNT 231 140 - 440 12/01/2021 [facility] thou/cu 2:54 PM CDT [facility] CLINIC MPV 11.3 (H) 6.5 - 12/01/2021 [facility] 11.0 fL 2:54 PM CDT [facility] NEUTROPHILS 54.3 % 12/01/2021 [facility] 2:54 PM CDT [facility] LYMPHOCYTES 28.4 % 12/01/2021 [facility] 2:54 PM CDT [facility] MONOCYTES 13.8 % 12/01/2021 [facility] 2:54 PM CDT [facility] EOSINOPHILS 2.8 % 12/01/2021 [facility] 2:54 PM CDT [facility] BASOPHILS 0.7 % 12/01/2021 [facility] 2:54 PM CDT [facility] ABSOLUTE 2.5 1.7 - 7.0 12/01/2021 [facility] NEUTROPHILS thou/cu 2:54 PM CDT [facility] CLINIC ABSOLUTE 1.3 0.9 - 2.9 12/01/2021 [facility] LYMPHOCYTES thou/cu 2:54 PM CDT [facility] CLINIC ABSOLUTE 0.6 <0.9 12/01/2021 [facility] MONOCYTES thou/cu 2:54 PM CDT [facility] ABSOLUTE 0.1 <0.5 12/01/2021 [facility] EOSINOPHILS thou/cu 2:54 PM CDT [facility]IN[facility] ABSOLUTE 0.0 <0.3 12/01/2021 [facility] BASOPHILS thou/cu 2:54 PM CDT [facility] Specimen Anatomical Collection Method Collection Time Receive d Time (Source) Location / / Volume Laterality Blood BLOOD SPECIMEN / Butterfly / 12/01/2021 2:45 PM 12/01 2:50 Unknown Unknown CDT PM CDT Veronica TANNER HEMATOLOGY Performing Organization Address City/State/ZIP Code Phon e Number [facility] [address] [place] [address] CT FACIAL BONES W (12/01/2021 2:35 PM CDT) Anatomical Region Laterality Modality FACIAL BONES Computed Tomography Specimen (Source) Anatomical Collection Method Collection Time Re ceived Time Location / / Volume Laterality 12/01/2021 2:56 PM CDT Narrative 12/01/2021 2:56 PM CDT For Patients: ??As a result of the Cures Act, medical imaging exams and procedure report s are released immediately into your [facility] medical record. ??You may view this report before your referring provider. ??If you have questions, please contact your health care provider. Indication: Dental abscess, left facial swelling Technique: Postcontrast CT facial bones. 100 cc Omn ipaque 350 intravenous contrast. Please note that all CT scans at this [facility] use dose modulation, iterative reconstruction, and/or weight-based dosing when appropriate to reduce radiation dose to as low as reasonably achievable. Comparison: 10/29/2021 Findings: No soft tissue abscess. No adenopathy. V isualized brain parenchyma normal. Normal orbits. Apical lucencies to about the left maxilla molars again noted. Periapical lucency adjacent to a right maxilla mo lar also noted with extension into the r ight inferior maxillary sinus, similar to the prior study. Mild mucosal thickening within the right maxillary sinus. Remaining sinuses are clear. No middle ear ef fusion or mastoiditis. Normal salivary g lands. Normal oropharynx. Impression: No evidence of soft tissue abscess. Lyric lar appearance of periapical lucencies adjacent to maxillary molars with associated mucosal thickening within the right inferior maxillary sinus, unchanged from prior. Please note that all CT scans at this fa cility use dose modulation, iterative reconstruction, and/or weight-based dosing when appropriate to reduce radiation dose to as low as reasonably achievable. Dictated by Herb eRed MD @ Nov ??3 2021 ??2:56PM (Electronically Signed) ?? Procedure Note Herb Reed MD - 12/01/2021For matting of this note might be different from the original. For Patients: As a result of the ntury Cures Act, medical imaging exams and procedure reports are released immediately into your electronic medical record. You may view this report before your referring provider. If you have questions, please contact [facility]. Indication: Dental abscess, left facial swelling Technique: Postcontrast CT facial bones. 100 cc Omn ipaque 350 intravenous contrast. Please note that all CT scans at this [facility] use dose modulation, iterative reconstruction, and/or weight-based dosing when appropriate to reduce radiation dose to as low as reasonably achievable. Comparison: 10/29/2021 Findings: No soft tissue abscess. No adenopathy. V isualized brain parenchyma normal. Normal orbits. Apical lucencies to about the left maxilla molars again noted. Periapical lucency adjacent to a right maxilla molar also noted with extension into the right inferior m axillary sinus, similar to the prior study. Mild mucosal thickening within the right maxillary sinus. Remaining sinuses are clear. No middle ear effusion or mastoiditis. Normal salivary glands. Normal oropharynx. Impression: No evidence of soft tissue abscess. Lyric lar appearance of periapical lucencies adjacent to maxillary molars with associated mucosal thickening within the right inferior maxillary sinus, unchanged from prior. Please note that all CT scans at this fa cility use dose modulation, iterative reconstruction, and/or weight-based dosing when appropriate to reduce radiation dose to as low as reasonably achievable. Dictated by Herb Reed MD @ Dec 01 2:56PM (Electronically Signed) Veronica TANNER CT LACTATE VENOUS (11/30/2021 3:01 PM CDT) P athologist Signature LACTATE,VENOUS 0.7 0.5 - 2.0 11/30/2021 [facility] mmol/L 3:37 PM CDT LABORATORY-[facility]ENT [facility]AL LABORATORY Specimen Anatomical Collection Method / Collection Time Recei elida Time (Source) Location / Volume Laterality Blood BLOOD SPECIMEN / Venipuncture / 11/30/2021 3:01 2021 3:08 Unknown Unknown PM CDT PM CDT Anw Ed Triage CHEMISTRY Performing Organization Address City/State/ZIP Code Phon e Number [employer] [address] [place] [address] LABORATORY-CENTRAL 2000 LABORATORY (ABNORMAL) COMP METABOLIC PANEL (11/30/2021 3:01 PM CDT) Patholo gist Method Time Signature SODIUM 137 135 - 145 11/30/2021 [facility] mmol/L 3:35 PM CDT LABORATORY-[facility] TR[facility] LABORATORY POTASSIUM 3.4 (L) 3.5 - 5.0 11/30/2021 [facility] mmol/L 3:35 PM CDT LABORATORY-[facility] LABORATORY CHLORIDE 104 98 - 110 11/30/2021 [facility] mmol/L 3:35 PM CDT LABORATORY-[facility] LABORATORY CO2,TOTAL 27 21 - 31 11/30/2021 [facility] mmol/L 3:35 PM CDT LABORATORY-[facility] LABORATORY ANION GAP 6 5 - 18 11/30/2021 [facility] 3:35 PM CDT LABORATORY-[facility] LABORATORY GLUCOSE 104 (H) 65 - 100 11/30/2021 [facility] mg/dL 3:35 PM CDT LABORATORY-[facility] LAB[facility]ATORY CALCIUM 9.8 8.5 - 10.5 11/30/2021 [facility] mg/dL 3:35 PM CDT LABORATORY-[facility] LAB[facility]ATORY BUN 19 8 - 25 11/30/2021 [facility] mg/dL 3:35 PM CDT LABORATORY-[facility] LABORATORY CREATININE 0.85 0.57 - 11/30/2021 [facility] 1.11 mg/dL 3:35 PM CDT LABORATORY-[facility] LAB[facility]ATORY BUN/CREAT RATIO 22 (H) 10 - 20 11/30/2021 [employer] 3:35 PM CDT LABORATORY-[facility] LABORATORY ALBUMIN 4.2 3.5 - 5.2 11/30/2021 [facility] g/dL 3:35 PM CDT LABORATORY-[facility] LABORATORY PROTEIN,TOTAL 7.6 6.0 - 8.0 11/30/2021 [facility] g/dL 3:35 PM CDT LABORATORY-[facility] LABORATORY GLOBULIN 3.4 2.0 - 3.7 11/30/2021 [facility] g/dL 3:35 PM CDT LABORATORY-[facility] LABORAT[facility] A/G RATIO 1.2 1.0 - 2.0 11/30/2021 [employer] 3:35 PM CDT LABORATORY-[facility] LAB[facility]ATORY BILIRUBIN,TOTAL 0.8 0.2 - 1.2 11/30/2021 [employer] mg/dL 3:35 PM CDT LABORATORY-[facility] LABORATORY ALK PHOSPHATASE 80 50 - 136 11/30/2021 [employer] IU/L 3:35 PM CDT LABORATORY-[facility] LAB[facility] ALT (SGPT) 20 8 - 45 11/30/2021 [facility] IU/L 3:35 PM CDT LABORATORY-[facility] LABORATORY AST (SGOT) 20 2 - 40 11/30/2021 [employer] IU/L 3:35 PM CDT LABORATORY-[facility] LABORATORY eGFR >90 >90 11/30/2021 [employer] mL/min/1.7 3:35 PM CDT LABORATORY-[facility]UR[facility] 3m2 TRAL LABORATORY Comment: As of 2021, eGFR is calcu lated by the CKD-EPI creatinine equation without race adjustment. eGFR can be inf luenced by muscle mass, exercise, and diet. The reported eGFR is an estimation only and is only applicable if the renal function is stable. Specimen Anatomical Collection Method / Collection Time Recei elida Time (Source) Location / Volume Laterality Blood BLOOD SPECIMEN / Venipuncture / 11/30/2021 3:01 2021 3:09 Unknown Unknown PM CDT PM CDT Anw Ed Triage CHEMISTRY Performing Organization Address City/State/ZIP Code Phon e Number [employer] [address] [place] [address] LABORATORY-CENTRAL 2000 LABORATORY PRO-BNP (11/12/2021 11:35 AM CDT) athologist [facility] PRO BNP NT 196 0 - 450 11/13/2021 [facility] pg/mL 3:34 AM CDT MEDICAL CENTER Comment: NT-proBNP values less than 300 pg/ml hav e a 99% negative predictive value for excluding congestive heart failure. ??A cutoff of 1200 pg/ml for patients with an eGFR <60 yields a diagnostic sensitivit y and specificity of 89% and 72% for acu te congestive heart failure. A diagnostic NT-proBNP cu toff of 900 pg/mL has been suggested in adults 50-75 years of age in absence of renal failure. Specimen Anatomical Collection Method / Collection Time Recei elida Time (Source) Location / Volume Laterality Blood BLOOD SPECIMEN / Venipuncture / 11/12/2021 11:35 11/12 Unknown Unknown AM CDT 11:38 AM CDT Veronica TANNER SEND OUTS Performing Organization Address City/State/ZIP Code Phon e Number [facility] [address] [place] [address] [place] [facility] CODE 812 (ABNORMAL) FERRITIN (11/12/2021 11:35 AM CDT) athologist [facility] FERRITIN 13.0 (L) 15.0 - 11/12/2021 [facility] 205.0 ng/mL 5:19 PM CDT LABORATORY-[facility] LABORATORY Specimen Anatomical Collection Method / Collection Time Recei elida Time (Source) Location / Volume Laterality Blood BLOOD SPECIMEN / Venipuncture / 11/12/2021 11:35 11/12 Unknown Unknown AM CDT 11:38 AM CDT Veronica TANNER CHEMISTRY Performing Organization Address City/State/ZIP Code Phon e Number [employer] [address] [place] [address] LABORATORY-CENTRAL [facility] LABORATORY LIVER PANEL (HEPATIC FUNCTION PANEL) (11/12/2021 11:35 AM CDT) athologist [facility] ALBUMIN 3.9 3.5 - 5.2 11/12/2021 [facility] g/dL 1:33 PM CDT [facility] LABORATORY PROTEIN,TOTAL 7.2 6.0 - 8.0 11/12/2021 [place] g/dL 1:33 PM [facility] LABORATORY GLOBULIN 3.3 2.0 - 3.7 11/12/2021 [place] g/dL 1:33 PM [facility] LABORATORY A/G RATIO 1.2 1.0 - 2.0 11/12/2021 [place] 1:33 PM [facility] LABORATORY BILIRUBIN,TOTAL 0.9 0.2 - 1.2 11/12/2021 [place] mg/dL 1:33 PM [facility] LABORATORY BILIRUBIN,DIRECT 0.3 0.1 - 0.5 11/12/2021 [place] mg/dL 1:33 PM [facility] LABORATORY BILIRUBIN,INDIRE 0.6 0.2 - 0.8 11/12/2021 [facility] mg/dL 1:33 PM [facility] LABORATORY ALK PHOSPHATASE 84 50 - 136 11/12/2021 [place] IU/L 1:33 PM [facility] LABORATORY ALT (SGPT) 35 8 - 45 11/12/2021 [place] IU/L 1:33 PM [facility] LABORATORY AST (SGOT) 31 2 - 40 11/12/2021 [place] IU/L 1:33 PM [facility] LABORATORY Specimen Anatomical Collection Method / Collection Time Recei elida Time (Source) Location / Volume Laterality Blood BLOOD SPECIMEN / Venipuncture / 11/12/2021 11:35 11/12 Unknown Unknown AM CDT 11:38 AM CDT Veronica TANNER CHEMISTRY Performing Organization Address City/State/ZIP Code Phon e Number [facility] [address] [place] [address] ECHO COMPLETE WO CONTRAST (11/10/2021 8:32 AM CDT) P athologist Signature AORTIC VALVE 10 mmHg MEAN PG EJECTION 54 % FRACTION PEAK TR 2.4 m/s VELOCITY LVEDD 4.4 cm EJECTION 55 - 60% FRACTION Anatomical Region Laterality Modality HEART Ultrasound Specimen (Source) Anatomical Collection Method Collection Time Re ceived Time Location / / Volume Laterality 11/10/2021 8:09 AM CDT Narrative 11/10/2021 8:40 AM CDT ECHOCARDIOGRAM VERNA M GUNTER ? Accessi on#: ?? [id number] : ?1985 36 years Study Date: ?? 11/10/2021 8:09:18 AM Gender: F ?BP: ? 120/72 mmHg Height: 170.00 cm ?BSA: ?2.06 m? ?? Weight: 95.00 kg ? Tech: ? NWA ? Referring MD: CARYN RODGERS Site: ? [facility] Reading Location: Mobile-OP Procedure: 2D, Color Doppler and Spectra l Doppler. Indication for study: S/P AVR Cardiac Rhythm: Regular.Study quality: Final Impressions: 1. Normal LV size, borderline wall thic kness, normal global systolic function with an estimated EF of 55 - 60%. 2. The aortic valve is mechanical On-X AVR and 23 mm, no stenosis and mild regurgitation. There is no paravalvular regurgitation. 3. The mitral valve is sclerotic, mild mitral regurgitation. Comparison Compared to prior exam of 04/21/21, ther e has been no significant change. Chamber Sizes and Function Normal left ventricular size, borderline wall thickness, normal global systolic function with an estimated EF of 55 - 60%. No definite resting regional wall motion abnormality seen. Left atrial size is normal. Left atrial pressure is normal. Right ventricular cavity size is normal, global systolic RV function is normal. RV wall thickness is normal. The right atrium is normal. Right atrial volume index is 20 ml/m? ??. Right atrial area is 16 cm? ??. The pulmonary artery is of normal size and origin. The sinus of Valsalva is normal sized. The ascending aorta is normal sized. Valves, RV Pressures and Diastolic Funct ion The aortic valve is mechanical On-X repl acement and 23 mm, no stenosis and mild regurgitation. There is no paravalvular regurgitation. The mitral valve is sclerotic, mild mitral regurgitation. Normal di astolic function. The tricuspid valve is normal in structure. Tricuspid regurgitation is mild regurgitation. The tricuspid regurgitant velocity is 2.4 m/s, the estimated right ventricular systolic press ure is 23 mmHg plus right atrial pressur e. The pulmonic valve is normal. No pulmonary regurgitation. Masses, Effusion, Shunts There is no pericardial effusion. The in ferior vena cava is normal sized, respiratory size variation greater than 50%. No left to right shunting was detected by limited color flow Doppler interrogation of the interatrial septum. MEASUREMENTS AND CALCULATIONS 2-D Measurements and LV Function: LVID (d) 4.4 cm LV FS% (2D) ?? 36 % LVID (s) 2.8 cm LVOT diameter 2.2 cm IVS (d) ??1.0 cm HR ?80 bpm LVPW (d) 1.5 cm LA Vol index ??20 ml/m2 Ao Sinus 3.4 cm RA Vol index ??20 ml/m2 Asc Ao ?? 3.2 cm RA area ? 16 cm? ?? LA ? 3.8 cm RV Max 4C (d) 2.6 cm Diastology: Mitral ?Tissue Doppler ?Pulmonary veins E Peak 0.9 m/s ??e', Septum ? 0.12 m /s Pulm s ?49.1 cm/s A Peak 0.5 m/s ??e', Lateral ?0.15 m /s Pulm d ?61.4 cm/s E/A ?1.6 ?E/e' Average ?? 6.3 4 ? Pulm s/d ratio ??0.80 DT ? 234 msec IVRT ?? 86 msec Aortic Valve: Vmax ? 2.1 m/s ??DAMARIS (V) ?? 1.76 cm? ?? VTI ?0.45 m ?? DAMARIS (I) ?? 1.67 cm? ?? LVOT V max 1.0 m/s ??Max PG ?17 mmHg LVOT VTI ?? 0.20 m ?? Mean PG ?? 10 mmHg SV ? 75 ml ?Dim Index 0.46 SV index ?? 36 ml/m? ?? CO ?6.0 l/min ?CI ?2.9 l/min/m? ?? Mitral Valve: MVA ?3.2 cm? ?? MV P 1/2 68 msec Tricuspid Valve and estimated PA pressur es: TR Vmax 2.4 m/s TAPSE 2.1 cm TR maxG 23 mmHg Pulmonic Valve: PV Vmax 1.1 m/s . This study was interpreted by an [facility] redited facility. ??Final ?? Procedure Note Roma Felix MD - 11/10/2021Formatt ing of this note might be different from the original. ECHOCARDIOGRAM VERNA GUNTER : 1985 36 years Study Date: 11/10 8:09:18 AM Gender: F BP: 120/72 mmHg Height: 170.00 cm BSA: 2.06 m? ?? Weight: 95.00 kg Tech: ESTRELLAA Referring MD: CARYN RODGERS Site: [facility] Reading Location: Mobile-OP Procedure: 2D, Color Doppler and Spectra l Doppler. Indication for study: S/P AVR Cardiac Rhythm: Regular.Study quality: Final Impressions: 1. Normal LV size, borderline wall thic kness, normal global systolic function with an estimated EF of 55 - 60%. 2. The aortic valve is mechanical On-X AVR and 23 mm, no stenosis and mild regurgitation. There is no paravalvular regurgitation. 3. The mitral valve is sclerotic, mild mitral regurgitation. Comparison Compared to prior exam of 04/21/21, ther e has been no significant change. Chamber Sizes and Function Normal left ventricular size, borderline wall thickness, normal global systolic function with an estimated EF of 55 - 60%. No definite resting regional wall motion abnormality seen. Left atrial size is normal. Left atrial pressure is normal. Right ventric ular cavity size is normal, global systolic RV function is normal. RV wall thickness is normal. The right atrium is normal. Right atrial volume index is 20 ml/m? ??. Right atrial area is 16 cm? ??. The pulmonary artery is of normal size and origin. The sinus of Valsalva is normal sized. The ascending aorta is normal sized. Valves, RV Pressures and Diastolic Funct ion The aortic valve is mechanical On-X repl acement and 23 mm, no stenosis and mild regurgitation. There is no paravalvular regurgitation. The mitral valve is sclerotic, mild mitral regurgitation. Normal diastolic function. The tricuspid valve is normal in structu re. Tricuspid regurgitation is mild regurgitation. The tricuspid regurgitant velocity is 2.4 m/s, the estimated right ventricular systolic pressure is 23 mmHg plus right atrial pressure. The pulmonic valve is normal. No pulmonary regurgitation. Masses, Effusion, Shunts There is no pericardial effusion. The in ferior vena cava is normal sized, respiratory size variation greater than 50%. No left to right shunting was detected by limited color flow Doppler interrogation of the interatrial septum. MEASUREMENTS AND CALCULATIONS 2-D Measurements and LV Function: LVID (d) 4.4 cm LV FS% (2D) 36 % LVID (s) 2.8 cm LVOT diameter 2.2 cm IVS (d) 1.0 cm HR 80 bpm LVPW (d) 1.5 cm LA Vol index 20 ml/m2 Ao Sinus 3.4 cm RA Vol index 20 ml/m2 Asc Ao 3.2 cm RA area 16 cm? ?? LA 3.8 cm RV Max 4C (d) 2.6 cm Diastology: Mitral Tissue Doppler Pulmonary veins E Peak 0.9 m/s e', Septum 0.12 m/s Pulm s 49.1 cm/s A Peak 0.5 m/s e', Lateral 0.15 m/s Pulm d 61.4 cm/s E/A 1.6 E/e' Average 6.34 Pulm s/d ratio 0.80 DT 234 msec IVRT 86 msec Aortic Valve: Vmax 2.1 m/s DAMARIS (V) 1.76 cm? ?? VTI 0.45 m DAMARIS (I) 1.67 cm? ?? LVOT V max 1.0 m/s Max PG 17 mmHg LVOT VTI 0.20 m Mean PG 10 mmHg SV 75 ml Dim Index 0.46 SV index 36 ml/m? ?? CO 6.0 l/min CI 2.9 l/min/m? ?? Mitral Valve: MVA 3.2 cm? ?? MV P 1/2 68 msec Tricuspid Valve and estimated PA pressur es: TR Vmax 2.4 m/s TAPSE 2.1 cm TR maxG 23 mmHg Pulmonic Valve: PV Vmax 1.1 m/s . This study was interpreted by an [facility] redited facility. Final Caryn Rodgers MD ECHO ORD CT HEAD SINUS LANDMARX WO (10/29/2021 8:35 AM CDT) Anatomical Region Laterality Modality SINUS Computed Tomography Specimen (Source) Anatomical Collection Method Collection Time Re ceived Time Location / / Volume Laterality 10/29/2021 2:23 PM CDT Impressions 10/29/2021 2:23 PM CDT Mild opacification of right maxillary sinus and minimal opacification of the left maxillary sinus. Small apical lucency of the anterior marianne t of the right 2nd upper molar and which extends into the right maxillary sinus. The roots of the left 2nd molar extend s lightly into the left maxillary sinus. Periapical lucencies x 2 are seen at the left upper 2nd premolar. Small periapical lucencies are seen at t he left upper 1st molar. Please note that all CT scans at this [facility] use dose modulation, iterative reconstruction, and/or weight-based dosing when appropriate to reduce radiation dose to as low as reasonably achievable. Dictated by Debbie Johnston MD @ Jak ??1 2021 ??2:23PM (Electronically Signed) ?? Narrative 10/29/2021 2:23 PM CDT For Patients: ??As a result of the Cures Act, medical imaging exams and procedure report s are released immediately into your [facility] medical record. ??You may view this report before your referring provider. ??If you have questions, please contact your health care provider. INDICATION: Chronic nasal congestion and postnasal d rainage TECHNIQUE: CT sinuses without contrast. COMPARISON: None. FINDINGS: Paranasal sinuses: Left frontal sinus is hypoplastic. Right frontal sinus shows no opacification. Ethmoid air cells are clear. Sphenoid sinuses are clear. Mild opacification of the right maxillary sinus and minimal opacification versus inferi or mucosal thickening of the left maxillary sinus. Small apical lucency of the anterior marianne t of the right 2nd upper molar and which extends into the right maxillary sinus. Periapical lucencies x 2 are seen at the left upper 2nd premolar. Small periapical lucencies are seen at t he left upper 1st molar. The roots of the left 2nd molar extend s lightly into the left maxillary sinus. The ostiomeatal units are patent. The fovea ethmoidalis and orbital roland are intact. The nasal septum shows minimal apex left deviation The nasal turbinates are normal. Orbits and globes: Unremarkable. ?? Visualized intracranial contents: Unrema rkable. ?? Soft tissues: Unremarkable. ?? Procedure Note Debbie Johnston MD - 10/29/2021Form atting of this note might be different from the original. For Patients: As a result of the nt[place] Cures Act, medical imaging exams and procedure reports are released immediately into your electronic medical record. You may view this report before your referring provider. If you have questions, please contact yo health care provider. INDICATION: Chronic nasal congestion and postnasal d rainage TECHNIQUE: CT sinuses without contrast. COMPARISON: None. FINDINGS: Paranasal sinuses: Left frontal sinus is hypoplastic. Right frontal sinus shows no opacification. Ethmoid air cells are clear. Sphenoid sinuses are clear. Mild opacification of the right maxillary sinus and minimal opacification versus inferior mucosal th ickening of the left maxillary sinus. Small apical lucency of the anterior marianne t of the right 2nd upper molar and which extends into the right maxillary sinus. Periapical lucencies x 2 are seen at the left upper 2nd premolar. Small periapical lucencies are seen at t he left upper 1st molar. The roots of the left 2nd molar extend s lightly into the left maxillary sinus. The ostiomeatal units are patent. The fovea ethmoidalis and orbital roland are intact. The nasal septum shows minimal apex left deviation The nasal turbinates are normal. Orbits and globes: Unremarkable. Visualized intracranial contents: Unrema rkable. Soft tissues: Unremarkable. IMPRESSION: Mild opacification of right maxillary si nus and minimal opacification of the left maxillary sinus. Small apical lucency of the anterior marianne t of the right 2nd upper molar and which extends into the right maxillary sinus. The roots of the left 2nd molar extend s lightly into the left maxillary sinus. Periapical lucencies x 2 are seen at the left upper 2nd premolar. Small periapical lucencies are seen at t he left upper 1st molar. Please note that all CT scans at this [facility] use dose modulation, iterative reconstruction, and/or weight-based dosing when appropriate to reduce radiation dose to as low as reasonably achievable. Dictated by Debbie Johnston MD @ Oct 29 022 2:23PM (Electronically Signed) Cris TANNER CT from Last 3 Months Insurance Payer Benefit Plan / Subscriber ID Effective Dates Phone Addre ss Type Group [id number] 2018-Present C/O PBA, 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
--- OUTSIDE RECORDS SUMMARY | 2022-01-18 23:48 | XMS_ITS | Continuity of Care Document ---
:[address] [facility] [place] [address] Encounter [facility] [id number] Date(s): 09/05/20 - 09/06/20 [place] [address] [facility] Encounter Diagnosis Trigeminal neuralgia (Discharge Diagnosis) - 09/06/20 Discharge Disposition: Home Attending Physician: AMBER ROSALES MD Admitting Physician: AMBER ROSALES MD Allergies, Adverse Reactions, Alerts Substance Reaction Severity Status terbutaline Active Assessment and Plan Extracted from: Title: Facial Pain *ED Author: AMBER ROSALES MD Date: 1 Impression and Plan Trigeminal neuralgia ([id number] G50.0, Danni rodriguez, Medical) Plan Condition: Stable. Disposition: Discharged: Time 09/06/2020 0 0:39:00, to home. Prescriptions: Include prescription Pharmacy: [facility]AMazepine 100 mg oral tablet, chewab le (Prescribe): 100 mg, 1 tab(s), PO, BID, chewable or tablet, 60 tab(s), 0 Refill(s). Patient was given the following educatio nal materials: Trigeminal Neuralgia, Trigeminal Neuralgia. Follow up with: Take 100 mg twice daily for 3 days and if no improvement you can double the dose to 200 mg twice daily. Return to the ER if you develop new or worsening symptoms and follow-up with your primary care doctor in a week for recheck.. Counseled: Patient. Immunizations Given and Recorded Vaccine Date Status Refusal Reason SARS-CoV-2 (COVID-19) mRNA-1273 vaccine 05/29/20 Given SARS-CoV-2 (COVID-19) mRNA-1273 vaccine 04/29/20 Given influenza virus vaccine,H1N1,inactivated 04/11/17 Recorde d diphtheria/pertussis, acel/tetanus adult 02/12/13 Given influenza virus vaccine, inactivated1 01/22/13 Given 1Result Comment: seasonal infuenza consent signed. Medications Adderall 20 mg oral tablet 20 mg = 1 tab(s), PO, BID, # 180 tab(s), 0 Refill(s) Start Date: 03/30/18 Stop Date: 06/28/18 Status: OrderedcarBAMazepine 100 mg oral tablet, chewable 100 mg = 1 tab(s), PO, BID, chewable or tablet, # 60 tab(s), 0 Refill(s) Start Date: 09/06/20 Stop Date: 10/07/20 Status: Orderedgabapentin 100 mg oral capsule See Instructions, TAKE 1 CAPSULE BY MOUTH THREE TIMES A DAY, # 90 cap(s), eRx: [facility] Start Date: 09/18/17 Status: OrderedLexapro 20 mg oral tablet 20 mg = 1 tab(s), PO, Daily, # 90 tab(s), 0 Refill(s), Pharmacy: [email or web address] Start Date: 03/30/18 Stop Date: 06/28/18 Status: Ordered Problem List Condition Effective Dates Status Health Status Informant Depression(Confirmed)1 Active 47298 Procedures Procedure Date Related Diagnosis Body Site Status 07/19/09 Completed appendectomy1 Completed tonsillectomy and adenoidectomy2 Completed [id number] Vital Signs Most recent to oldest 1 2 3 [Reference Range]: Temperature Temporal Artery 97.6 degF [97-100.4 degF] (09/05/20 11:57 PM) Peripheral Pulse Rate 82 bpm 9 bpm 99 bpm [60-100 bpm] (09/06/20 1:00 AM) *<LLOW* (09/06/20 12:29 A M) (09/06/20 12:48 AM) Respiratory Rate [12-28 18 br/min 18 br/min br/min] (09/06/20 12:29 AM) (09/05/20 11:57 PM) Blood Pressure 111/49 mmHg 123/76 mmHg 151/102 mmHg [90-140/60-90 mmHg] (09/06/20 1:00 AM) (09/06/20 12:48 AM) *>HHI* (09/06/20 12:29 AM ) Oxygen Saturation [90-100 92 % 98 % 100 % %] (09/06/20 1:00 AM) (09/06/20 12:48 AM) (09/06/20 12:29 AM) Orientation Oriented x 3 Oriented x 3 (09/06/20 12:29 AM) (09/05/20 11:57 PM) Level of Consciousness Alert Alert (09/06/20 12:29 AM) (09/05/20 11:57 PM) Affect/Behavior Calm, Calm, Appropriate, Cooperative Cooperative (09/05/20 11:57 PM) (09/06/20 12:29 AM) History of Fall in Last 3 No Months Branch (09/06/20 12:29 AM) Presence of Secondary No Diagnosis Branch (09/06/20 12:29 AM) Use of Ambulatory Aid Branch None, bedrest, wheelchair, nurse (09/06/20 12:29 AM) IV/Heparin Lock Fall Risk No Branch (09/06/20 12:29 AM) Gait Weak or Impaired Fall Normal, bedrest, immobile Risk Branch (09/06/20 12:29 AM) Mental Status Fall Risk Oriented to own ability Branch (09/06/20 12:29 AM) Branch Fall Risk Score 0 (09/06/20 12:29 AM) Eye Opening Response Spontaneously Marvell (09/06/20 12:29 AM) Best Motor Response Aislinn Obeys simple commands (09/06/20 12:29 AM) Best Verbal Response Oriented Aislinn (09/06/20 12:29 AM) Aislinn Coma Score 15 (09/06/20 12:29 AM) Characteristics of Speech Clear (09/06/20 12:29 AM) Social History Social History Type Response Smoking Status Never a smoker Sex Female Hospital Discharge Instructions Patient Novftxcgi26/09/2021 00:43:00Trigeminal NeuralgiaTrigeminal Neuralgia?? You have trigeminal neuralgia. This is pain caused by irritation of the trigeminal nerve on your face. Symptoms include sudden, sharp pain in your head or face. It may feel like an electric shock. It can last for several seconds or minutes. It often happens on only 1 side of your face. Pain may be triggered by things such as moving your jaw when brushing your teeth or eating. Or by a touch on the skin of your face. The pain may be caused by something irritating the trigeminal nerve, such as a blood vessel pressing against it. But the exact cause of this problem often isn???t known. It can be very painful. But the condition isn???t dangerous. Trigeminal neuralgia is often treated with medicines. These include anti-seizure medicines or antidepressants. Certain other treatments may also help. In some cases, you may need surgery. For some people, radiation therapy is needed with a precise tool called gamma knife. This does not make any cuts (incisions). Some people have underlying health problems causing trigeminal neuralgia, such as multiple sclerosis. You may need an imaging test such as a CT scan or an MRI of the brain and skull. You will be advised if other health problems need treatment. Home care Your healthcare provider may prescribe medicines to help ease and prevent pain. Take all medicines as directed. Please note that it may take several changes in dose and medicines before the right combination is found that controls the pain. General care: ???Plan to rest at home today. ???Don't do any specific activities that seem to trigger the pain. ???Over the next few weeks, keep a pain diary. Write down when your symptoms happen and how they feel. Certain activities such as touching your face, chewing, talking, or brushing your teeth may bring on the pain. Cold air can also trigger the pain. Make sure you write down any triggers and discuss these with your provider. This will help guide treatment. Follow-up care Follow up with your healthcare provider, or as advised. If you were referred to a neurologist, be sure to make an appointment. For more information on your condition, visit: ???[employer]?? www.fpa-support.org When to get medical advice Call your healthcare provider right away??if any of these occur: ???Fever of 100.4??F (38??C) or higher, or as advised by your provider ???Headache with very stiff neck ???You aren???t able to keep liquids down (repeated vomiting) ???Extreme drowsiness or confusion ???Dizziness or fainting ???A new feeling of weakness or numbness or tingling in your arm, leg, or face ???Trouble speaking or seeing ?? [phone] [employer]. [address] [place] [address], [place] [address]. All rights reserved. This information is not intended as a substitute for professional medical care. Always follow your healthcare professional's instructions. Follow Up Care09/05/2020 23:55:23With:Take 100 mg twice daily for 3 days and if no improvement you can double the dose to 200 mg twice daily. Return to the ER if you develop new or worsening symptoms and follow-up with your primary care doctor in a week for recheck. Address:Unknown When: Unknown
[2022-01-18 23:51] VITALS: PULSE 110; O2SAT 99
[2022-01-19] VITALS (11 sets, daily range): BP systolic 131–152; BP diastolic 56–84; PULSE 104–116; O2SAT 95–98
[2022-01-19] MEDS: POTASSIUM CHLORIDE 10 MEQ/100 ML PIGGYBACK 100 MEQ IVPB (00:32)
--- NOTE | 2022-01-19 01:47 | ED.SOB ---
HPI - SOB/Dyspnea General Chief Complaint: Shortness of Breath/Dyspnea Stated Complaint: Chest pain, SOB, post open heart surgery Time Seen by Provider: 01/18/22 22:26 Source: patient and old records reviewed Mode of arrival: ambulatory Limitations: no limitations Related Data Home Medications Medication Instructions Recorded Confirmed dextroamphetamine-amphetamine .ROUTE 01/18/22 furosemide 20 mg tablet mg 01/18/22 metoprolol tartrate 25 mg tablet mg 01/18/22 potassium chloride 20 mEq meq PO 01/18/22 tablet,extended release warfarin 3 mg tablet mg 01/18/22 Allergies Allergy/AdvReac Type Severity Reaction Status Date / Time terbutaline Allergy Unknown Verified 01/18/22 22:47 PFSH PFSH Social History Smoking Status: Unknown if ever smoked Do you use any of these nicotine containing products: None Second hand tobacco smoke exposure: No How often do you have a drink containing alcohol: never How many standard drinks containing alcohol do you have on a typical day: 1 or 2 How often do you have six or more drinks on one occasion: Never AUDIT-C Alcohol total score: 0 Non-prescribed substance use: denies use Exam Const: Vital Signs, click to edit/add: Vital Signs - 24 hr 01/18/22 22:37 01/18/22 23:00 01/18/22 22:57 Pulse Rate Pulse Rate [Pulse Oximeter] 119 H 117 H 113 H Respiratory Rate 30 H 28 H 28 H Blood Pressure Blood Pressure [Ri ght Upper Arm] 135/93 H 115/74 100/72 Pulse Oximetry 97 95 Oxygen Delivery Me thod Room Air Room Air 01/18/22 22:48 01/18/22 23:51 01/19/22 00:00 Pulse Rate 110 H 109 H Pulse Rate [Pulse Oximeter] 112 H Respiratory Rate 24 Blood Pressure Blood Pressure [Ri ght Upper Arm] 90/49 L Pulse Oximetry 95 99 97 Oxygen Delivery Me thod Room Air 01/19/22 00:01 01/19/22 00:30 01/19/22 00:31 Pulse Rate 108 H 116 H 115 H Pulse Rate [Pulse Oximeter] Respiratory Rate Blood Pressure 141/56 H 152/84 H Blood Pressure [Ri ght Upper Arm] Pulse Oximetry 98 96 96 Oxygen Delivery Me thod 01/19/22 01:00 01/19/22 01:01 01/19/22 01:30 Pulse Rate 108 H 114 H 112 H Pulse Rate [Pulse Oximeter] Respiratory Rate Blood Pressure 137/80 Blood Pressure [Ri ght Upper Arm] Pulse Oximetry 96 95 97 Oxygen Delivery Me thod 01/19/22 01:31 01/19/22 01:32 01/19/22 02:00 Pulse Rate 110 H 112 H 105 H Pulse Rate [Pulse Oximeter] Respiratory Rate Blood Pressure 131/70 Blood Pressure [Ri ght Upper Arm] Pulse Oximetry 96 95 96 Oxygen Delivery Me thod 01/19/22 02:01 Pulse Rate 104 H Pulse Rate [Pulse Oximeter] Respiratory Rate Blood Pressure 134/71 Blood Pressure [Ri ght Upper Arm] Pulse Oximetry 95 Oxygen Delivery Me thod Course Course Hospital Course: Patient seen and examined immediately on arrival, prior records reviewed. Differential diagnosis includes but not limited to acute heart failure, hemothorax, pneumothorax, pleural effusion, pulmonary embolism, dysrhythmia, pericardial effusion, acute coronary syndrome. Patient with aortic valve replacement about 10 months ago, presents with shortness of breath and chest pressure. On initial exam, oxygen saturation 98% on room air, patient is tachypneic and tachycardic with breathlessness, diminished breath sounds at the bases. Bedside ultrasound demonstrates question of trace pericardial effusion. Labs, EKG, x-ray ordered in CT PE protocol will be ordered as well. Risk of pulmonary embolism is low given the fact patient is not anticoagulated but will look for other intrathoracic findings that could cause symptoms including but not limited to pericardial effusion, pulmonary edema. Vital Signs Vital signs: Initial Vital Signs Temperature Source Temporal Artery Scan 01/18/22 22:37 Pulse Rate 119 H 01/18/22 22:37 Respiratory Rate 30 H 01/18/22 22:37 Blood Pressure 135/93 H 01/18/22 22:37 Blood Pressure Mean 107 01/18/22 22:37 Blood Pressure Position Supine 01/18/22 22:37 Oxygen Delivery Method 01/18/22 22:37 Vital Signs Pulse Rate 119 H 01/18/22 22:37 Respiratory Rate 30 H 01/18/22 22:37 Blood Pressure 135/93 H 01/18/22 22:37 Oxygen Delivery Method 01/18/22 22:37 Pulse Rate 104 H 01/19/22 02:01 Respiratory Rate 28 H 01/18/22 23:00 Blood Pressure 134/71 01/19/22 02:01 Pulse Oximetry 95 01/19/22 02:01 Oxygen Delivery Method 01/18/22 23:00 MDM - SOB/Dyspnea Lab Data Labs: Lab Results 01/18/22 01/18/22 01/18/22 Range/Units 22:23 22:23 22:23 WBC 8.55 (4.50-11.00) K/uL RBC 5.51 H (4.00-5.20) m/uL Hgb 14.5 (12.0-16.0) gm/dL Hct 44.0 (33.0-51.0) % MCV 80 (80-100) fL MCH 26 (26-34) pg MCHC 33 (32-36) gm/dL RDW Coeff of Riley 12.6 (11.5-15.5) % Plt Count 351 (140-440) K/uL Neut % (Auto) 63.2 (42.0-72.0) % Lymph % (Auto) 25.1 (20-44) % [place] % (Auto) 9.8 (0.0-11.0) % Eos % (Auto) 0.8 (0.0-7.0) % Baso % (Auto) 0.7 (0.0-3.0) % Neut # (Auto) 5.40 (1.7-7.0) K/uL Lymph # (Auto) 2.15 (0.90-2.90) K/uL [place] # (Auto) 0.80 (0.00-0.90) K/UL Eos # (Auto) 0.07 (0.00-0.50) K/uL Baso # (Auto) 0.06 (0.00-0.30) K/uL Abs Immat Gran (auto) 0.03 (0.00-0.30) K/uL INR 2.37 H (0.91-1.10) Sodium 133 L (135-149) mmol/L Potassium 2.7 L* (3.6-5.1) mmol/L Chloride 94 L (96-114) mmol/L Carbon Dioxide 26 (20-32) mmol/L BUN 13 (5-24) mg/dL Creatinine 0.8 (0.5-1.5) mg/dL Estimated Creat Clear 93.63 Estimated GFR 97 ml/min Glucose 177 H (60-115) mg/dL Calcium 9.5 (8.4-10.6) mg/dL Magnesium 1.8 (1.5-2.6) mg/dL NT-Pro-B Natriuret Pep 60 (0-125) PG/mL SARS-CoV-2 (PCR) (Negative) Influenza Type A (PCR) (Negative) Influenza Type B (PCR) (Negative) POC Troponin I (0.01-0.04) ng/ml 01/18/22 01/18/22 Range/Units 22:27 22:27 WBC (4.50-11.00) K/uL RBC (4.00-5.20) m/uL Hgb (12.0-16.0) gm/dL Hct (33.0-51.0) % MCV (80-100) fL MCH (26-34) pg MCHC (32-36) gm/dL RDW Coeff of Riley (11.5-15.5) % Plt Count (140-440) K/uL Neut % (Auto) (42.0-72.0) % Lymph % (Auto) (20-44) % [place] % (Auto) (0.0-11.0) % Eos % (Auto) (0.0-7.0) % Baso % (Auto) (0.0-3.0) % Neut # (Auto) (1.7-7.0) K/uL Lymph # (Auto) (0.90-2.90) K/uL [place] # (Auto) (0.00-0.90) K/UL Eos # (Auto) (0.00-0.50) K/uL Baso # (Auto) (0.00-0.30) K/uL Abs Immat Gran (auto) (0.00-0.30) K/uL INR (0.91-1.10) Sodium (135-149) mmol/L Potassium (3.6-5.1) mmol/L Chloride (96-114) mmol/L Carbon Dioxide (20-32) mmol/L BUN (5-24) mg/dL Creatinine (0.5-1.5) mg/dL Estimated Creat Clear Estimated GFR ml/min Glucose (60-115) mg/dL Calcium (8.4-10.6) mg/dL Magnesium (1.5-2.6) mg/dL NT-Pro-B Natriuret Pep (0-125) PG/mL SARS-CoV-2 (PCR) Negative SARS-CoV-2 (Negative) Influenza Type A (PCR) Negative PCR FLU A (Negative) Influenza Type B (PCR) Negative PCR FLU B (Negative) POC Troponin I 0.00 L (0.01-0.04) ng/ml Discharge Plan Discharge Clinical Impression: Acute hypokalemia, Congestive heart failure, Sinus tachycardia Patient Disposition: Home, Self-Care Condition: Improved Additional Instructions: Increase Metoprolol to 100 mg twice a day. Increase potassium to 40 meQ twice a day. Hold Adderall. Follow up with Cardiology [facility]. Prescriptions: No Action warfarin 3 mg tablet Label Comments: take 2 tablets by mouth on monday and monday; then 3 tablets on all other days or as directed. furosemide 20 mg tablet Label Comments: Take 1 Tablet (20 mg) by mouth 2 times daily metoprolol tartrate 25 mg tablet Label Comments: TAKE 1/2 TABLET BY MOUTH 2 TIMES DAILY, MAY TAKE AN EXTRA TAB ONCE FOR PERSISTENTLY ELEVATED HEART potassium chloride 20 mEq tablet extended release PO Label Comments: Take 2 Tablets (40 mEq) by mouth once daily with a meal. dextroamphetamine-amphetamine [Adderall] .ROUTE Follow Up/Referrals: Veronica Maya PA-C [Referring] - Stand Alone Forms: [employer] Info Instructions
--- NOTE | 2022-01-19 02:11 | ED.NURSE ---
arrived to take pt home.
== END 2022-01-19 02:12 | disposition home or self-care (01) ==
PROVIDERS: Emergency Provider Family Medicine; PCP Family Medicine
DX: E87.6 Hypokalemia (principal); I50.9 Heart failure, unspecified; R00.0 Tachycardia, unspecified; Z95.2 Presence of prosthetic heart valve
CPT/HCPCS: 36415; 71045; 71260; 80048; 83735; 83880; 84484; 85025; 85610; 87631; 93005; 96360; 96361; 99284; A9270; J3480; Q9967

== ENCOUNTER 2022-05-30 20:29 | Outpatient (CLI) | payer OTHER, SELFPAY | END 2022-05-30 20:30 | disposition home or self-care (01) | PROVIDERS: PCP Family Medicine; Visit Provider Internal Medicine | DX: G47.33 Obstructive sleep apnea (adult) (pediatric) (principal) | CPT/HCPCS: 95810 ==

== ENCOUNTER 2022-08-29 23:57 | Emergency (ER) | payer OTHER, SELFPAY ==
[2022-08-30 00:35] VITALS: BP 139/85; PULSE 92; RESP 18; TEMP 36.8; O2SAT 100; BMI 30.9
[2022-08-30] MEDS: AMOXICILLIN/CLAVULANATE 875 mg/125 mg TABLET PO (01:13)
[2022-08-30] MEDS: OXYCODONE 5 MG TABLET 10 MG PO (01:13)
--- NOTE | 2022-08-30 01:14 | ED.GENADULT ---
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 Patient reports the temporary crown placed 6-7 months ago. She has not prioritized getting the formal crown placed due to her busy work schedule. She began having pain yesterday morning, went to her cardiology appointment, had been able to manage with Tylenol and then eventually ibuprofen. pain worsened in the evening but was improved with the use of Orajel. She was awoken with pain Overnight, tried Orajel again with no improvement. Has taken maximum doses of Tylenol and ibuprofen. She is hesitant typically to use ibuprofen due to her use of Coumadin for her mechanical heart valve. She has not noted any bleeding. She notes irritation of the gum, looks as though a sore or ulcer is setting in. No sore throat, no difficulty swallowing, no difficulty breathing. No new trauma or injury. No difficulty opening closing the jaw, no neck pain. No new trauma or injury. 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 She takes metoprolol, and a known cardiology medication and also Coumadin for this. She is a nonsmoker. 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 Medical history reviewed from EMR. ROS notable for no other HEENT, respiratory, skin, generalized, cardiovascular, GI changes today. Related Data Home Medications Medication Instructions Recorded Confirmed dextroamphetamine-amphetamine .ROUTE 01/18/22 furosemide 20 mg tablet 20 mg 01/18/22 metoprolol tartrate 25 mg tablet mg 01/18/22 potassium chloride 20 mEq meq PO 01/18/22 tablet,extended release warfarin 3 mg tablet mg 01/18/22 dextroamphetamine-amphetamine 30 1 tab PO BID 08/30/22 08/30/22 mg tablet ferrous sulfate 325 mg (65 mg 325 mg PO DAILY 08/30/22 08/30/22 iron) tablet,delayed release ivabradine 5 mg tablet (Corlanor) 5 mg PO BID 08/30/22 08/30/22 metoprolol tartrate 100 mg tablet mg PO 08/30/22 metoprolol tartrate 50 mg tablet mg PO 08/30/22 Allergies Allergy/AdvReac Type Severity Reaction Status Date / Time terbutaline Allergy Unknown Verified 01/18/22 22:47 [facility] Social History Smoking Status: Never smoker Do you use any of these nicotine containing products: None Second hand tobacco smoke exposure: No How often do you have a drink containing alcohol: never How many standard drinks containing alcohol do you have on a typical day: 1 or 2 How often do you have six or more drinks on one occasion: Never AUDIT-C Alcohol total score: 0 Non-prescribed substance use: denies use Exam Const: Vital Signs, click to edit/add: Vital Signs - 24 hr 08/30/22 00:35 Temperature 98.3 F Pulse Rate [Pulse Oximeter] 92 Respiratory Rate 18 Blood Pressure [Le ft Upper Arm] 139/85 Pulse Oximetry 100 Oxygen Delivery Me thod Room Air Documenting provider has reviewed patient's vital signs: yes Other: Mild distress due to pain but excellent historian. Calm and cooperative. HENMT: Common normals: normocephalic and head/scalp atraumatic Head and scalp: normocephalic and atraumatic Other: Left maxillary area slightly swollen. Lips are acyanotic. Oropharynx reveals good dentition overall but the left upper molar does show temporary crown is placed. There is tenderness an appearance of some mild ulceration at the lateral upper gum adjacent to the temporary crown. Redness and swelling and exquisite tenderness noted. No obvious abscess, area of fluctuance or sign of new injury. The roof of the mouth, posterior pharynx, tongue and uvula all appear normal. Jaw opens and closes normally with no tenderness over the mandible. Eye: Common normals: conjunctivae normal General eye: normal appearance of both eyes Conjunctiva: conjunctiva(e) normal Neck & C-Spine: Common normals: full ROM and no lymphadenopathy Resp: Common normals: normal respiratory effort and no use of accessory muscles Effort & inspection: able to speak in complete sentences Cardio: Common normals: regular rate and regular rhythm Rate: regular rate Rhythm: regular rhythm Other: Mechanical heart valve sounding murmur, consistent with known history. Psych: Common normals: speech normal Attitude: engaged Speech: normal speech Mood and affect: euthymic mood Insight: insight good Judgement: judgment good Skin: Common normals: no rashes or lesions noted General skin exam: no rashes or lesions noted Course Vital Signs Vital signs: Initial Vital Signs Temperature 98.3 F 08/30/22 00:35 Temperature Source Temporal Artery Scan 08/30/22 00:35 Pulse Rate 92 08/30/22 00:35 Pulse Rhythm Regular 08/30/22 00:35 Respiratory Rate 18 08/30/22 00:35 Blood Pressure 139/85 08/30/22 00:35 Blood Pressure Mean 103 08/30/22 00:35 Pulse Oximetry 100 08/30/22 00:35 Oxygen Delivery Method Room Air 08/30/22 00:35 Vital Signs Temperature 98.3 F 08/30/22 00:35 Pulse Rate 92 08/30/22 00:35 Respiratory Rate 18 08/30/22 00:35 Blood Pressure 139/85 08/30/22 00:35 Pulse Oximetry 100 08/30/22 00:35 Oxygen Delivery Method Room Air 08/30/22 00:35 Temperature 98.3 F 08/30/22 00:35 Pulse Rate 92 08/30/22 00:35 Respiratory Rate 18 08/30/22 00:35 Blood Pressure 139/85 08/30/22 00:35 Pulse Oximetry 100 08/30/22 00:35 Oxygen Delivery Method Room Air 08/30/22 00:35 Medical Decision Making MDM Narrative Medical decision making narrative: Concern for infection, more concerned in the setting of known mechanical heart valve. Recommend starting Augmentin. Is in need of pain control, will treat with oxycodone 10 mg p.o. x1 and then give additional supply of both medications through [facility]. She is able to make an appointment tomorrow with her dentist and has this already confirmed. Stressed the importance of keeping this appointment and need for x-rays and additional workup. Repeating these today in the emergency department is unlikely to be of any benefit. She agrees with this plan. Alarm symptoms reviewed as indications to come back to ED. Discharge Plan Discharge Clinical Impression: Dental abscess Patient Disposition: Home w/ Parent or Adult Condition: Stable Instructions: Dental Abscess (ED) Additional Instructions: as we discussed, I am concerned about infection. I am more concerned because of your history of a mechanical heart valve in do recommend that we start antibiotics. I have given you a dose of Augmentin. You will need another dose early tomorrow afternoon. He may take her 3rd dose on Monday morning. Remember that this can cause some diarrhea. It is okay to use Imodium for loose stools. Please make sure to get the appointment with your dentist within the next 24 hours. This definitely needs x-rays. It may require an additional procedure to drain infection. For pain, you are doing an excellent job with Tylenol and ibuprofen. You will need to have your INR recheck in 2 days. continue with the Tylenol and ibuprofen. I have given you a small supply of oxycodone to use if the pain is severe. Remember that it is also okay to use Benadryl and or melatonin to help you sleep. Feel free to experiment with half doses of the oxycodone if a full tablet seems to strong. I am hoping that you only need those for nighttime. Come back to the emergency department if you have severe shortness of breath, are unable to swallow or have any signs of severe bleeding. Activity Level: No Restrictions Discharge Diet: Regular Prescriptions: No Action metoprolol tartrate 100 mg tablet PO Hold Instructions: Doctor's Order dextroamphetamine-amphetamine 30 mg tablet 1 tab PO BID metoprolol tartrate 50 mg tablet PO ferrous sulfate 325 mg (65 mg iron) tablet,delayed release (DR/EC) 325 mg PO DAILY Corlanor 5 mg tablet 5 mg PO BID warfarin 3 mg tablet Patient Comments: take 2 tablets by mouth on monday and monday; then 3 tablets on all other days or as directed. furosemide 20 mg tablet 20 mg Patient Comments: Take 1 Tablet (20 mg) by mouth 2 times daily metoprolol tartrate 25 mg tablet Patient Comments: TAKE 1/2 TABLET BY MOUTH 2 TIMES DAILY, MAY TAKE AN EXTRA TAB ONCE FOR PERSISTENTLY ELEVATED HEART potassium chloride 20 mEq tablet extended release PO Patient Comments: Take 2 Tablets (40 mEq) by mouth once daily with a meal. dextroamphetamine-amphetamine [Adderall] .ROUTE Follow Up/Referrals: Elina Jeronimo DO [Primary Care Provider] - Stand Alone Forms: [employer] Info Instructions
== END 2022-08-30 01:22 | disposition home or self-care (01) ==
LOC: ED 08-30 01:19
PROVIDERS: Emergency Provider Family Medicine; PCP Family Medicine
DX: K04.7 Periapical abscess without sinus (principal)
CPT/HCPCS: 99282; 99283; A9270

== ENCOUNTER 2024-08-05 03:49 | Emergency (ER) | payer OTHER, SELFPAY ==
--- OUTSIDE RECORDS SUMMARY | 2024-08-05 03:51 | XMS_ITS | Continuity of Care Document ---
Author Name [facility] Organization [facility] Care Team Providers Care Buddhist Monk Name Role Phone [facility] Unavailable Unavailable Medications Combined list of outpatient medications from Department of Defense and Veterans Affairs facilities.Medications provided include 1) outpatient medications from the last 15 months, and 2) patient-reported medications. Medication Details Route Status Patient Instructions Prescription Expires Prescription Number Last Dispense Date Ordering Provider Order Date Order Qty Source amoxicillin 500 mg oral capsule 0 total refill(s ) Ordered 2020 No [facility] amoxicillin -clavulanat e 875 mg-125 mg oral tablet 0 total refill(s ) Ordered 2020 No [facility] dextroamphe tamine-amph etamine 20 mg oral tablet dextroam phetamin e-amphet amine 20 mg oral tablet Start Date: 03/03/20 Status: Ordered Repeat number: 1 Ordered 2020 No [facility] dextroamphe tamine-amph etamine 20 mg oral tablet dextroam phetamin e-amphet amine 20 mg oral tablet Start Date: 12/02/19 Status: Ordered Repeat number: 1 Ordered 2020 No [facility] dextroamphe tamine-amph etamine 20 mg oral tablet dextroam phetamin e-amphet amine 20 mg oral tablet Start Date: 08/31/19 Status: Ordered Repeat number: 1 Ordered 2020 No [facility] dextroamphe tamine-amph etamine 30 mg oral tablet dextroam phetamin e-amphet amine 30 mg oral tablet Start Date: 06/15/20 Status: Ordered Repeat number: 1 Ordered 2020 No [facility] dextroamphe tamine-amph etamine 30 mg oral tablet dextroam phetamin e-amphet amine 30 mg oral tablet Start Date: 04/25/20 Status: Ordered Repeat number: 1 Ordered 2020 No [facility] dextroamphe tamine-amph etamine 5 mg oral tablet dextroam phetamin e-amphet amine 5 mg oral tablet Start Date: 03/03/20 Status: Ordered Repeat number: 1 Ordered 2020 No [facility] escitalopra m 20 mg oral tablet escitalo pram 20 mg oral tablet Start Date: 06/15/20 Status: Ordered Repeat number: 1 Ordered 2020 No [facility] escitalopra m 20 mg oral tablet escitalo pram 20 mg oral tablet Start Date: 03/03/20 Status: Ordered Repeat number: 1 Ordered 2020 No [facility] pantoprazol e 40 mg oral delayed release tablet pantopra zole 40 mg oral delayed release tablet Start Date: 03/05/20 Status: Ordered Repeat number: 1 Ordered 2020 No [facility] pantoprazol e 40 mg oral delayed release tablet pantopra zole 40 mg oral delayed release tablet Start Date: 07/14/20 Status: Ordered Repeat number: 1 Ordered 2020 No [facility] sucralfate 1 g oral tablet sucralfa te 1 g oral tablet Start Date: 02/26/20 Status: Ordered Repeat number: 1 Ordered 2020 No Facilit y Access Allergies, Adverse Reactions, Alerts Combined list of allergies from Department of Defense and Veterans Affairs facilities. It does not include entries that were removed or entered in error. Substance Category Reaction Severity Reaction type Status Date Reported Comments Source terbutaline Propensity to adverse reactions to substance Anaphylaxis Active 6 Unknown Organiza tion Immunizations Combined list of available immunizations from the Department of Defense and Veterans Affairs facilities. Immunization Series Date Given Administered By Site Reaction Lot Number CVX Code Drug Luggage Repairer Status Comments Source influenza, live, intranasal,qu adrivalent 2014 [id number] [employer] comple t ed influenza , live, intranasa l,quadriv alent 03/19/15 Given Ambulat ory Pharmac y influenza, live, intranasal,qu adrivalent 2013 [id number] [employer] comple t ed influenza , live, intranasa l,quadriv alent 03/21/14 Given Ambulat ory Pharmac y hepatitis B adult vaccine 2013 zzLef Arm [id number] [facility] adult [facility] 03/21/14 Given Ambulat ory Pharmac y measles/mumps /rubella virus vaccine 2013 zzLef t Thigh [id number] [employer] complet ed measles/m umps/rube lla virus vaccine 03/21/14 Given Ambulat ory Pharmac y hepatitis B adult vaccine 2013 zzRig ht Arm [id number] 43 GlaxoSmithKli ne complet ed hepatitis B adult vaccine 05/02/13 Given Ambulat ory Pharmac y hepatitis B adult vaccine 2012 zzRig ht Arm [id number] 43 GlaxoSmithKli ne complet ed hepatitis B adult vaccine 03/07/13 Given Ambulat ory Pharmac y tuberculin purified protein derivative 2012 zzRig ht Arm [id number] 96 sanofi pasteur complet ed Patient Tolerance : Negative Ambulat ory Pharmac y influenza, injectable, quadrivalent- pf 2012 TRANSCR IBED 150 complet ed influenza , injectabl e, quadrival ent-pf 01/22/13 Given Ambulat ory Pharmac y measles/mumps /rubella virus vaccine 2012 TRANSCR IBED 03 complet ed measles/m umps/rube lla virus vaccine 10/17/12 Given Ambulat ory Pharmac y tetanus, diphtheria, acellular pertu is 2011 TRANSCR IBED 115 complet ed tetanus, diphtheri a, acellular pertussis 11/21/11 Given Ambulat ory Pharmac y Novel influenza-H1N 1-09, injectable 2008 zzRig ht Arm [id number] 127 Nov[employer] ls complet ed Novel influenza -[id number], injectabl e 03/24/09 Given Ambulat ory Pharmac y influenza virus vaccine,split 2008 zzLef t Arm [id number] 15 sanofi pasteur complet ed influenza virus vaccine,s plit 03/24/09 Given Ambulat ory Pharmac y influenza virus vaccine, live 2006 TRANSCR IBED 111 complet ed influenza virus vaccine, live 02/28/07 Given Ambulat ory Pharmac y Td (adult) 2006 TRANSCR IBED 138 complet ed Td (adult) 05/12/06 Given Ambulat ory Pharmac y meningococcal A,C,Y,W-135 (MCV4P) 2002 TRANSCR IBED 114 complet ed meningoco ccal A,C,Y,W-1 35 (MCV4P) 10/16/02 Given Ambulat ory Pharmac y Procedures Combined list of: 1) Procedures from Department of Veterans Affairs facilities going back up to thelast 18 months, not all [place] non-surgical procedures are included; 2) All procedures from the Department of Defense facilities. Procedure Procedure Type Code Date Perfomer Comments Sourc e No data available for this section Ambulatory P harmacy Social History Combined list of available smoking, tobacco, and other social history from Department of Defense and Veterans Affairs facilities. Social History Type Response Date Comment Sourc e Sexual Orientation Ambula tory Pharmacy Gender identity Ambulator y Pharmacy Sex Representation Female (finding) Unknown Organization Assessment and Plan Combined list of future care activities from Department of Defense and Veterans Affairs facilities (e.g., assessment and plan notes, appointments, orders, and referrals). Additional future care activities may be listed in the Plan of Care section. Result Assessment and Plan Date Source Assessment and Plan No data available for this section 08/05/2024 Ambulatory Pharmacy Functional Status Combined list of recent functional and cognitive assessments recorded at [facility] Functional [place] Measurement (FIM) Scale: 1 = Total Assistance (Subject = 0% +), 2 = Maximal Assistance (Subject = 25% +), 3 = Moderate Assistance (Subject = 50% +), 4 = Minimal Assistance (Subject = 75% +), 5 = Supervision, 6 = Modified [place] (Device), 7 = Complete [place] (Timely, Safely). Assessment Date/Time Source Assessment Type Assessment Skill Assessment Score Assessment Details No data available for this section
--- OUTSIDE RECORDS SUMMARY | 2024-08-05 03:51 | XMS_ITS | Clinical Summary ---
Author Organization [facility] Address [address] [place] [id number] Care Team Providers Care Shredded Filler Hopper Feeder Name Role Phone Elina Jeronimo DO Primary Care Provider [phone] Allergies Active Allergy Reactions Criticality Noted Date Comments Terbutaline Respiratory Distress ,Shortness Of Breath 03/07/2009 Medications aspirin chewable 81 mg chewable tabletIndications:S /P AVR (aortic valve replacement) Chew 1 Tablet by mouth once daily. 30 Tablet 3 1 9:56 AM CDT 02/23/20 21 Active ferrous sulfate 325 mg delayed release tabletIndications:I melanie deficiency Take 1 Tablet (325 mg) by mouth once daily. 90 Tablet 3 06/01/19 23 Active medication order composerIndications :KAYCEE (obstructive sleep apnea) 05/30/2022 AHI- 5.2, positional and REM; diagnosis obstructive sleep apnea MRD #1 1 unit 07/20/19 23 Active torsemide (DEMADEX) 20 mg tabletIndications:S OB (shortness of breath),KAYCEE (obstructive sleep apnea),S/P AVR (aortic valve replacement),Iron deficiency anemia, unspecified iron deficiency anemia type 20 mg PO Daily PRN for significant edema 30 Tablet 3 08/30/19 23 Active escitalopram oxalate (LEXAPRO) 20 mg tabletIndications:M ild recurrent major depression,Generali zed anxiety disorder Take 1 Tablet (20 mg) by mouth once daily. 90 Tablet 3 10/03/19 24 Active dextroamphetamine-a mphetamine (AdderalL) 20 mg tabletIndications:A ttention deficit hyperactivity disorder (ADHD), unspecified ADHD type Take 1.5 Tablets (30 mg) by mouth two times daily. 90 Tablet 10/31/19 24 Active dextroamphetamine-a mphetamine (AdderalL) 20 mg tabletIndications:A ttention deficit hyperactivity disorder (ADHD), unspecified ADHD type Take 1.5 Tablets (30 mg) by mouth two times daily. 90 Tablet 12/30/19 24 Active ivabradine (CORLANOR) 5 mg tabletIndications:I nappropriate sinus tachycardia (HC) Take 1 Tablet (5 mg) by mouth two times daily with meals. 180 Tablet 3 01/12/20 24 Active potassium chloride (KLOR-CON M20) 20 mEq extended-release tablet (part/cryst)Indicat ions:Hypokalemia Take 1 Tablet (20 mEq) by mouth once daily with a meal. 90 Tablet 3 01/12/20 24 Active cycloSPORINE (Restasis) 0.05 % ophthalmic emulsionIndications :Bilateral keratitis sicca Place 1 Drop into both eyes every 12 hours. 60 Each 2 06/03/19 25 Active dextroamphetamine-a mphetamine (AdderalL) 20 mg tabletIndications:A ttention deficit hyperactivity disorder (ADHD), unspecified ADHD type Take 1.5 Tablets (30 mg) by mouth two times daily. 90 Tablet 06/14/19 25 Active warfarin (COUMADIN) 3 mg tabletIndications:S /P AVR (aortic valve replacement),Encoun ter for anticoagulation monitoring with international normalized ratio (INR) goal of 1.5-2.5 Take by mouth 6 mg (3 mg x 2) every Mon; 9 mg (3 mg x 3) all other days in the evening OR as directed 260 Tablet 06/30/19 25 Active dextroamphetamine-a mphetamine (AdderalL) 20 mg tabletIndications:A ttention deficit hyperactivity disorder (ADHD), unspecified ADHD type Take 1.5 Tablets (30 mg) by mouth two times daily. 90 Tablet 07/13/19 25 025 Active dextroamphetamine-a mphetamine (AdderalL) 20 mg tabletIndications:A ttention deficit hyperactivity disorder (ADHD), unspecified ADHD type Take 1.5 Tablets (30 mg) by mouth two times daily. 90 Tablet 08/12/19 25 025 Active dextroamphetamine-a mphetamine (AdderalL) 20 mg tabletIndications:A ttention deficit hyperactivity disorder (ADHD), unspecified ADHD type Take 1.5 Tablets (30 mg) by mouth two times daily. 60 Tablet 09/11/19 25 Active benzonatate 200 mg capsuleIndications: Acute cough Take 1 Capsule (200 mg) by mouth 3 times daily if needed for Cough. 21 Capsule 07/31/19 25 Active albuterol HFA 90 mcg/actuation inhalerIndications: Acute cough Inhale 1-2 Puffs by mouth every 4 hours if needed for Shortness Of Breath or Wheezing. 3 Each 3 07/31/19 25 Active predniSONE 20 mg tabletIndications:C OVID-19 virus infection,Acute cough Take 2 Tablets (40 mg) by mouth once daily for 5 days. 10 Tablet 08/01/19 25 025 Active codeine-guaiFENesin 10-100 mg/5 mL liquidIndications:A cute cough Take 5 mL by mouth every 6 hours if needed for Cough. 100 mL 08/01/19 25 Active Hospital, Clinic, or Other Facility Administered Medication Ordered Dose Route Frequency Start Date End Date Status levonorgestrel (MIRENA) 20 mcg/24 hours (8 yrs) 52 mg intrauterine device (IUD) 1 DeviceIndications:Encounter for IUD removal and reinsertion 1 Device IU Q 8 YEARS 01/11/2024 Active Active Problems Problem Noted Date Diagnosed Date Chronic diastolic (congestive) heart failure 07/2023 Paroxysmal SVT (supraventricular tachycardia) KAYCEE 05/30/2022 AHI- 5.2, positional and REM 07/19 ADHD 07/19/2022 Anticoagulation monitoring, INR range 1.5-2.5, INR Goal 1.5-2.0 per Cardiology 06/01/22 06/01/2022 S/P AVR (aortic valve replacement) 02/17/2021 Overview (02/17/2021): 02/17/2021 On-X prosthetic heart valve size 23, lifelong anticoagulation goal INR 2-3 unless cardiology directed Vitamin D deficiency 07/06/2018 Major Depression, Recurrent, Mild 07/24/2008 Rule out Gambling, Pathological 07/24/2008 Generalized anxiety disorder 05/23/2008 Migraine, unspecified, witho ut mention of intractable migraine without mention of status migrainosus 06/12/2007 Pap smear for cervical cancer screening Overview (06/19/2021): 05/2021 NIL/HPV negative. Plan: Pap/HPV due 05/2026 Resolved Problems Problem Noted Date Diagnosed Date Resolved Date Anticoagulation monitoring, INR range 2-3 05/13/2021 06/01/2022 Aortic valve insufficiency, etiology of cardiac valve disease unspecified 02/22/20212022 Anticoagulation goal of INR 2 to 3 02/17/2021 03/11/2022 Overview (02/17/2021): Lifelong due to mechanical heart valve Major Depression, Recurrent, Moderate 05/23/2008 07/24/2008 Rule out emerging Panic Diso rder without Agoraphobia 05/23/2008 06/06/2008 RIGHT SIDED MESENTERIC ADENITIS 06/25/2007 11/21/2011 C DIFF COLITIS 06/25/2007 11/21/2011 RIGHT CALF PAIN 06/25/2007 11/21/2011 Nausea with vomiting 06/25/2007 012 Dysthymic disorder 06/12/2007 9 Overview (08/14/2007): On Wellbutrin XL and she feels like she is not herself and would rather go back to Wellbutrin SR witch works better Anxiety state, unspecified 06/12/2007 0 05/23/2008 Encounters Date Type Department Care Team Description 08/01/2024 Anticoagulation (warfarin) [facility] [address] [place] [address] 1, [facility] Anticoagulation (Acelis) 07/31/2024 9:45 AM CDT Phone Office Visit [facility] [address] [place] [address] Elina Jeronimo DO 07/30/2024 2:15 PM CDT Ancillary Procedure [facility] [address] [place] [address] 07/30/2024 1:40 PM CDT Office Visit [facility] [address] [place] [facility] [place] [address] Rylee Jeronimo, DO Cough (3 days - she's been coughing so hard she has a HR of 180 and her 02 is in the 80s - using robotussin and advil dayquil) 07/30/2024 Travel 07/26/2024 Telephone [facility] [address] [place] [address] Luz Elena Jiang MD Results 07/26/2024 Telephone [facility] [address] [place] [address] Luz Elena Jiang MD Lab (both bottles, culture 2) 07/25/2024 7:30 AM CDT Ancillary Procedure [facility] [address] [facility] [place] [address] 07/25/2024 Travel 07/22/2024 11:45 AM CDT Orders Only [address] [address] Lab, [facility] 07/22/2024 Orders Only [facility] Scanner 1 scan: (1-Ord) [facility], MULTIPLE LAB TESTS RESULTS, 07/22/2024 07/22/2024 Travel 07/18/2024 9:00 AM CDT Office Visit [facility] [address] [place] [address] Luz Elena Jiang MD Consult 07/18/2024 Travel 07/15/2024 Anticoagulation (warfarin) [facility] [address] [place] [address] Sir Jeronimoi Alla, DO Anticoagulation ([facility] HM ) 07/12/2024 9:20 AM CDT Office Visit [facility] [address] [place] [address] Donnyqra Elina Alla, DO Medication Management (Adderall ); Results ([facility] US results) 07/11/2024 7:20 AM CDT - 07/11/2024 11:59 PM CDT Hospital Encounter [facility] [address] [place] [address] Elina Jeronimo DO Swelling of both lower extremities; Fatigue, unspecified type 07/11/2024 Travel 06/29/2024 Anticoagulation (warfarin) [facility] [address] [place] [address] 1, [facility] Anticoagulation 06/17/2024 Telephone [facility] [address] [place] [address] Raymundo Traore, OD Prior Authorization (cycloSPORINE (Restasis) 0.05 % ophthalmic emulsion DENIED) 06/05/2024 Anticoagulation (warfarin) [facility] [address] [place] [address] 1, [facility] Anticoagulation (Acelis) 06/05/2024 Telephone [facility] [address] [place] [address] Elina Jeronimo, Anticoagulation (Annual re-enrollment /) 06/03/2024 8:00 AM LOANS OFFICER Office Visit [facility] [address] [place] [address] Raymundo Traore, OD Eye Exam (CEE) 06/03/2024 Travel 05/31/2024 Travel 05/20/2024 9:30 AM LOANS OFFICER Orders Only [facility] [address] [place] [address] Lab, ld Lab 05/20/2024 Anticoagulation (warfarin) [facility] [address] [place] [address] 1, [facility] Anticoagulation 05/20/2024 Travel 05/16/2024 9:30 AM LOANS OFFICER Office Visit [facility] [address] [place] [address] Watson Monroe MD Consult (Positive sm/FOREST FIRE PREVENTION SPECIALIST antibody/Positive ADALGISA (antinuclear antibody)/legs swelling and edema ) 05/16/2024 Anticoagulation (warfarin) [facility] [address] [place] [address] 1, [facility] Anticoagulation 05/16/2024 Anticoagulation (warfarin) [facility] [address] [place] [address] Elina Jeronimo, DO Error-please disregard (opened in error) 05/16/2024 Travel 05/14/2024 Travel 05/13/2024 Telephone [facility] [address] [place] [address] Elina Jeronimo Alla, DO Anticoagulation (OVERDUE #2 Reminder ) from Last 3 Months Immunizations Immunization Administration Dates Next Due COVID-19 vaccine (Moderna 100mcg/0.5mL) PF, MDV 05/29/2020,04/29/2020 COVID-19 vaccine (Pfizer-Bio NTech 30mcg/0.3mL) PF, MDV 05/25/2021 Hepatitis B (Adult) 03/21/2014,05/02/2013,2012 Influenza A (H1N1), Inactiva el (Age >=3 Years) 03/24/2009 Influenza Virus, Unspecified 03/19/2015, 03/21/2014,01/22/2013,03/02,02/28/2007 Influenza, IIV3 (Age >=3 years) 02/28/2007 Influenza, IIV4 02/07/2023,,02/11/2021,05/2019,02/28/2019 Influenza, IIV4 (=>6mos) MDV 02/11/2021 Influenza, Inactivated IIV3 (Age 65+ Years) Preserv Free 03/31/2018 Influenza,LAIV3 Live Intrana mariya (Flumist) 02/28/2007 MMR 12/23/2020,12/31/2019,10/17/2002 MMR, Unspecified 03/21/2014,10/17/2012 Meningococcal Vaccine 10/16/2002 Meningococcal Vaccine (Menactra) 10/16/2002 TD, UNSPECIFIED 05/12/2006 Td (Age >=7 Years) 05/12/2006 Td Adult (Tetanus And Diphth eria Toxoids, Not Adsorbed) 05/12/2006 Tdap 10/26/2021,11/21/2011 11/20/2021 Tuberculin (PPD) 02/19/2013 Tuberculin Skin Test, Unspecified 02/19/2013 Varicella Vaccine 12/23/2020,12/31/2019 Family History Medical History Relation Name Comments Diabetes Father Heart Disease Father Hypertension Father Cancer Maternal Grandfather stomach Valvular heart disease Maternal Grandfather Good Health Maternal Grandmother Cancer Mother ovarian age 36, living Thyroid Disease Mother Good Health Paternal Grandmother in accident Good Health Sister Good Health Son Relation Name Status Comments Daughter Alive Father Alive Maternal Grandfather Alive Maternal Grandmother Alive Mother Alive Paternal Grandfather in accident Paternal Grandmother in accident Sister Alive Son Other Social History Tobacco Use Types Packs/Day Years Used Date Smoking Tobacco: Never Smokeless Tobacco: Never Tobacco Cessation:Counseling Given: Yes Alcohol Use Standard Drinks/Week Comments Yes 0 (1 standard drink = 0.6 oz pur e alcohol) once or twice a year PHQ-2 Answer Date Recorded PHQ-2 TOTAL SCORE 1 10/03/2023 Social Connections Answer Date Recorded Do you often feel lonely or isolated from those around you? 0 03/28/2024 Financial Resource Strain Answer Date R ecorded Difficulty of Paying Living Expenses 3 03/28/2024 Difficulty of Paying Living Expenses Not on file 03/28/2024 Food Insecurity Answer Date Recorded Do you worry your food will run out before you are able to buy more? 1 03/28/2024 Transportation Needs Answer Date Record ed Does lack of transportation keep you from medica l appointments? 1 03/28/2024 Does lack of transportation keep you from work, meetings or getting things that you need? 1 03/28/2024 Housing Stability Answer Date Recorded What is your housing situation today? 1 03/28/2024 Utilities Answer Date Recorded Do you have trouble paying f or utilities (for example, heat, electricity, water, phone)? 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 Not on file Not on file Not on file Not on file Not on file Not on file Not on file Obstetrics History Para Term AB IAB SAB Ectopic Multiple Livin g Live Births 2 2 2 2 1 Date Outcome GA Total Labor Labor/2nd/3rd Weight Sex Type Anes PTL Alla A1 A5 Name Clin 07/19 Term F C-Sec tion Living [place] 04/05 Term M Last Filed Vital Signs Vital Sign Reading Time Taken Comments Blood Pressure 140/84 07/30/2024 1:42 PM CDT Pulse 94 07/30/2024 1:42 PM CDT Temperature 36.8 C (98.3 F) 07/30/2024 1:42 PM CDT Respiratory Rate 16 01/27/2022 8:00 AM CDT Oxygen Saturation 100% 07/30/2024 1:42 PM CDT Inhaled Oxygen Concentration - - Weight 92.4 kg (203 lb 9.6 oz) 07/30/2024 1:42 P M CDT Height 170.2 cm (5' 7) 01/12/2024 8:10 AM CDT Body Mass Index 31.89 01/12/2024 8:10 AM CDT Plan of Treatment Health Maintenance Due Date Last Done Comments Pneumococcal series for age 6-49 (1 of 2 - PCV) 2003 COVID-19 vaccine series ( season) 2023 05/25/2021, 05/29/2020, 04/29/2020 Depression screening for age 12+ 10/02/2024 10/03/2023, 05/25/2021, 05/25/2021, Additional history exists Influenza Vaccine (Season Ended) 2024 02/07/2023, 01/12/2022, 02/11/2021, Additional history exists BMI (ht and wt on same day) for age 18+ 01/11/2025 01/12/2024, 10/03/2023, 08/29/2022, Additional history exists Pap test for age 21-65 05/25/2026 , 05/25/2021, 11/29/2017 (Completed outside of [facility]), Additional history exists Tetanus booster 10/27/2031 10/26/2021, 07/2 06/2011, 05/12/2006, Additional history exists Hepatitis C screening for ag e 18-79 Completed 07/28/2008 Tdap Completed 10/26/2021, 11/21/2011 HIV for age 15-65 Completed 07/22/2024, 07/28/2008 Medical Devices Implanted Type Area Whitesmith Device Identifier Shelf Expiration Date Model / Serial / Lot Valve Aortic 23mm On-X W/33mm Loni Ring - [id number] Implanted:Qty: 1 on 02/17/2021 by Laura Sears MD at [facility] N/A: Aortic Valve [employer] 10/08/2026 ONXANE-23 / [id number] / Screw Sternal 2.4x14mm Sterna Lock [employer] - [id number] Implanted:Qty: 8 on 02/17/2021 by Laura Sears MD at [facility] N/A: Sternum [employer] 73-2414 / / Screw Sternal 2.4x12mm Sterna Lock [employer] - [id number] Implanted:Qty: 16 on 02/17/2021 by Laura Sears MD at [facility] N/A: Sternum [employer] 73-2412 / / Plate Sternal X 8 Hole Sterna Lock - [id number] Implanted:Qty: 3 on 02/17/2021 by Laura Sears MD at [facility] N/A: Sternum [employer] [id number] / / Procedures Procedure Name Priority Date/Time Associated Diagnosis Comments HOME MONITOR AC Routine 08/01/2024 12:00 AM CDT XR CHEST 2 VIEWS PA AND LATERAL Routine 07/30/2024 2:16 PM CDT Acute cough COVID/FLU/RSV PANEL Routine 07/30/2024 2 :08 PM CDT Acute cough THROAT RAPID STREP ONLY CLINIC Routine 07/30/2024 2:08 PM CDT Acute cough CT CHEST ABDOMEN PELVIS W Routine 07/25/2024 8:05 AM CDT Fever, unspecified fever cause BLOOD CULTURE Routine 07/22/2024 11:33 AM CDT Fever, unspecified fever cause BLOOD CULTURE Routine 07/22/2024 11:32 AM CDT Fever, unspecified fever cause CBC WITH AUTO DIFFERENTIAL Routine 07/22/2024 11:32 AM CDT Fever, unspecified fever cause ANTI HIV 1/2 Routine 07/22/2024 11:32 AM CDT Fever, unspecified fever cause EBV AB IGG IGM AND EBNA Routine 07/23/19 11:32 AM CDT Fever, unspecified fever cause CMV IGM ANTIBODY Routine 07/22/2024 11:3 2 AM CDT Fever, unspecified fever cause CMV IGG ANTIBODY [id number] Routine 11:32 AM CDT Fever, unspecified fever cause FERRITIN Routine 07/22/2024 11:32 AM CDT Fever, unspecified fever cause LYME SCREEN W/REFLEX Routine 07/22/2024 11:32 AM CDT Fever, unspecified fever cause TREPONEMA PALLIDUM Routine 07/22/2024 11 :29 AM CDT Fever, unspecified fever cause SCAN-LABORATORY REPORT 12:00 AM CDT HOME MONITOR AC Routine 07/15/2024 12:00 AM CDT US VENOUS INSUFFICIENCY LOWER EXTREMITY BILATERAL Routine 07/11/2024 8:27 AM CDT Swelling of both lower extremities Fatigue, unspecified type HOME MONITOR AC Routine 06/29/2024 12:00 AM LOANS OFFICER HOME MONITOR AC Routine 06/05/2024 12:00 AM LOANS OFFICER URINALYSIS MICROSCOPIC Routine 9:17 AM LOANS OFFICER Positive ADALGISA (antinuclear antibody) PROTEIN/CREAT RATIO,URINE Routine 05/20/2024 9:17 AM LOANS OFFICER Positive ADALGISA (antinuclear antibody) UA W/ SEDIMENT EXAM REFLEXED PER CRITERIA Routine 05/20/2024 9:17 AM LOANS OFFICER Positive ADALGISA (antinuclear antibody) PROTIME-INR Routine 05/20/2024 9:16 AM LOANS OFFICER S/P AVR (aortic valve replacement) Anticoagulation monitoring, INR range 1.5-2.5, INR Goal 1.5-2.0 per Cardiology 06/01/22 PROTIME-INR Routine 05/16/2024 10:38 AM LOANS OFFICER S/P AVR (aortic valve replacement) Anticoagulation monitoring, INR range 1.5-2.5, INR Goal 1.5-2.0 per Cardiology 06/01/22 ANTINUCLEAR ANTIBODIES TITER AND PATTERN (QUEST REFLEX ONLY) Routine 05/16/2024 10:25 AM LOANS OFFICER INTERPRETATION (QUEST) Routine 10:25 AM LOANS OFFICER TIER 1 (QUEST) Routine 05/16/2024 10:25 AM LOANS OFFICER CYCLIC CITRULLINE PEPTIDE Routine 05/16/2024 10:25 AM LOANS OFFICER Positive ADALGISA (antinuclear antibody) DNA DOUBLE-STRANDED (DSDNA) ANTIBODIES BY CRITHIDIA LUCILIAE IFA Routine 05/16/2024 10:25 AM LOANS OFFICER Positive ADALGISA (antinuclear antibody) ANTI-JAEGER Routine 05/16/2024 10:25 AM LOANS OFFICER Positive ADALGISA (antinuclear antibody) ANTISCLERODERMA 70 ANTIBODIES Routine 05/16/2024 10:25 AM LOANS OFFICER Positive ADALGISA (antinuclear antibody) ANTI ALICIA 1 Routine 05/16/2024 10:25 AM LOANS OFFICER Positive ADALGISA (antinuclear antibody) SJOGRENS ANTIBODIES Routine 05/16/2024 1 0:25 AM LOANS OFFICER Positive ADALGISA (antinuclear antibody) FOREST FIRE PREVENTION SPECIALIST ANTIBODY Routine 05/16/2024 10:25 AM LOANS OFFICER Positive ADALGISA (antinuclear antibody) C4 COMPLEMENT Routine 05/16/2024 10:25 AM LOANS OFFICER Positive ADALGISA (antinuclear antibody) C3 COMPLEMENT Routine 05/16/2024 10:25 AM LOANS OFFICER Positive ADALGISA (antinuclear antibody) BETA 2 GLYCOPROTEIN I OLGA LIDIA Routine 05/16/2024 10:25 AM LOANS OFFICER Positive ADALGISA (antinuclear antibody) Ribonucleoprotein antibody positive Leg swelling Generalized anxiety disorder Positive sm/FOREST FIRE PREVENTION SPECIALIST antibody Myalgia Dysphagia, unspecified type Dry eyes Fever, unspecified fever cause CARDIOLIPIN ANTIBODY Routine 05/16/2024 10:25 AM LOANS OFFICER Positive ADALGISA (antinuclear antibody) Ribonucleoprotein antibody positive Leg swelling Generalized anxiety disorder Positive sm/FOREST FIRE PREVENTION SPECIALIST antibody Myalgia Dysphagia, unspecified type Dry eyes Fever, unspecified fever cause ADALGISA CASCADE(ADALGISA,IFA W/RFL AND REFL 11 AB CASCADE) (QUEST) Routine 05/16/2024 10:25 AM LOANS OFFICER Positive ADALGISA (antinuclear antibody) Ribonucleoprotein antibody positive Leg swelling Generalized anxiety disorder Positive sm/FOREST FIRE PREVENTION SPECIALIST antibody Myalgia Dysphagia, unspecified type Dry eyes Fever, unspecified fever cause THYROPEROXIDASE ANTIBODY Routine 05/16/2024 10:25 AM LOANS OFFICER Positive ADALGISA (antinuclear antibody) Ribonucleoprotein antibody positive Leg swelling Generalized anxiety disorder Positive sm/FOREST FIRE PREVENTION SPECIALIST antibody Myalgia Dysphagia, unspecified type Dry eyes Fever, unspecified fever cause THYROGLOBULIN ANTIBODY Routine 10:25 AM LOANS OFFICER Positive ADALGISA (antinuclear antibody) Ribonucleoprotein antibody positive Leg swelling Generalized anxiety disorder Positive sm/FOREST FIRE PREVENTION SPECIALIST antibody Myalgia Dysphagia, unspecified type Dry eyes Fever, unspecified fever cause POTASSIUM Routine 05/16/2024 10:25 AM LOANS OFFICER Positive ADALGISA (antinuclear antibody) Ribonucleoprotein antibody positive Leg swelling Generalized anxiety disorder Positive sm/FOREST FIRE PREVENTION SPECIALIST antibody Myalgia Dysphagia, unspecified type Dry eyes Fever, unspecified fever cause ALT (SGPT) Routine 05/16/2024 10:25 AM LOANS OFFICER Positive ADALGISA (antinuclear antibody) Ribonucleoprotein antibody positive Leg swelling Generalized anxiety disorder Positive sm/FOREST FIRE PREVENTION SPECIALIST antibody Myalgia Dysphagia, unspecified type Dry eyes Fever, unspecified fever cause AST (SGOT) Routine 05/16/2024 10:25 AM LOANS OFFICER Positive ADALGISA (antinuclear antibody) Ribonucleoprotein antibody positive Leg swelling Generalized anxiety disorder Positive sm/FOREST FIRE PREVENTION SPECIALIST antibody Myalgia Dysphagia, unspecified type Dry eyes Fever, unspecified fever cause CREATININE Routine 05/16/2024 10:25 AM LOANS OFFICER Positive ADALGISA (antinuclear antibody) Ribonucleoprotein antibody positive Leg swelling Generalized anxiety disorder Positive sm/FOREST FIRE PREVENTION SPECIALIST antibody Myalgia Dysphagia, unspecified type Dry eyes Fever, unspecified fever cause CK TOTAL Routine 05/16/2024 10:25 AM LOANS OFFICER Positive ADALGISA (antinuclear antibody) Ribonucleoprotein antibody positive Leg swelling Generalized anxiety disorder Positive sm/FOREST FIRE PREVENTION SPECIALIST antibody Myalgia Dysphagia, unspecified type Dry eyes Fever, unspecified fever cause HOME MONITOR AC Routine 05/16/2024 12:00 AM LOANS OFFICER HPV HIGH RISK Routine 05/25/2021 10:51 AM LOANS OFFICER Pap smear for cervical cancer screening ANTI HCV Routine 07/28/2008 12:46 PM CDT Contact with or Exposure to Venereal Diseases from Last 3 Months or Most Recently Relevant to Health Maintenance Results * HOME MONITOR AC (08/01/2024 12:00 AM CDT) Only the most recent of5 resultswithin the time period is included. PATIENT REPORTED HOME INR 2.4 1.50 - 2.50 ALERE HOME MONITORING 08/01/2024 us Elina Jeronimo DO OTHER Final Result [facility] [address] [place] [address] * XR CHEST 2 VIEWS PA AND LATERAL (07/30/2024 2:16 PM CDT) Anatomical Region Laterality Modality CHEST, THORAX, Lung, HEART Compu el Radiography 07/30/2024 2:43 PM CDT Narrative 07/30/2024 2:43 PM CDT For Patients: As a result of the Cures Act, medical imaging exams and procedure reports are released immediately into your electronic medical record. You may view this report before your referring provider. If you have questions, please contact your health care provider. Indication: Acute cough Technique: Chest 2 views Comparison: Chest x-ray 01/26/2022 Findings/Impression: Cardiovascular and mediastinum: Normal heart size status post aortic valve replacement. Lungs and pleural spaces: Lungs are clear. No sign of infiltrate or mass. No sign of pleural effusion. No pneumothorax. Bones and soft tissues: Status post median sternotomy. Dictated by Rito Mehta MD @ 07/30/2024 2:43:53 PM (Electronically Signed) Procedure Note Rito Mehta MD - 07/30/2024 For Patients: As a result of the Cures Act, medical imagingexams and procedure reports are released immediately into your electronicmedical record. You may view this report before your referring provider.If you have questions, please contact your health care provider. Indication: Acute cough Technique: Chest 2 views Comparison: Chest x-ray 01/26/2022 Findings/Impression: Cardiovascular and mediastinum: Normal heart size status post aortic valvereplacement. Lungs and pleural spaces: Lungs are clear. No sign of infiltrate ormass. No sign of pleural effusion. No pneumothorax. Bones and soft tissues: Status post median sternotomy. Dictated by Rito Mehta MD @ 07/30/2024 2:43:53 PM (Electronically Signed) us Adei Shaqra DO GENERAL IMAGING Final Result * (ABNORMAL) COVID/FLU/RSV PANEL (07/30/2024 2:08 PM CDT) Pathologist [facility] [place] COVID 19 [facility] Positive(A) Negative 07/31/2024 3:44 AM CDT [facility] INFLUENZA A PCR Negative 3:44 AM CDT [facility] INFLUENZA B PCR Negative 3:44 AM CDT [facility] Respiratory Syncytial Virus Negative 07/31/2024 3:44 AM CDT [facility] Swab NASOPHARYNGEAL SWAB / Unknown Non-Blood / Unknown 07/30/2024 2:08 PM CDT 07/30/2024 2:08 PM CDT [facility] MICROBIOLOGY Final Result Performing Organization Address City/[facility]/ZIP Co de Phone Number [facility] [address] [place] [address], * POCT Throat Rapid Strep (07/30/2024 2:08 PM CDT) Pathologist [facility] [place] POC, GROUP A STREP NOT DETECTED NOT DETECTED [facility] Comment: The [employer] Academy of Pediatrics recommends that a throat culture be performed if a rapid group A streptococcus assay yields a negative result. [facility] recommends Streptococcus, Group A culture. Throat SPECIMEN FROM THROAT / Unknown 07/30/2024 2:08 PM CDT 07/30/2024 2:09 PM CDT [facility] MI[facility] Final Result Performing Organization Address City/[facility]/ZIP Co de Phone Number [facility] [address] [place] [address], [place] [phone] [facility] [address] [place] [address] * CT CHEST ABDOMEN PELVIS W (07/25/2024 8:05 AM CDT) Anatomical Region Laterality Modality Abdomen, Pelvis, AORTA, LIVER, SPLEEN, CHEST Computed Tomography 07/25/2024 4:30 PM CDT Impressions 07/25/2024 4:30 PM CDT 1. Etiology of fever not evident. No inflammatory or neoplastic process demonstrated. 2. AVR. 3. Several benign right lower lobe nodules. Please note that all CT scans at this facility use dose modulation, iterative reconstruction, and/or weight-based dosing when appropriate to reduce radiation dose to as low as reasonably achievable. Dictated by Moises Mckenna MD @ 07/25/2024 4:30:35 PM (Electronically Signed) Narrative 07/25/2024 4:30 PM CDT For Patients: As a result of the Cures Act, medical imaging exams and procedure reports are released immediately into your electronic medical record. You may view this report before your referring provider. If you have questions, please contact your health care provider. INDICATION: Fever of unknown origin TECHNIQUE: Volumetric helical scanning of the chest, abdomen and pelvis was performed with 100cc of Omnipaque 350 contrast material IV. Coronal and sagittal reconstructions were obtained. COMPARISON: Chest CT of 03/01/2021 FINDINGS: CHEST: No infiltrate, airway abnormality or pleural effusion is demonstrated. A noncalcified 6 mm right lower lobe nodule is demonstrated on image 80 of series 9. This is unchanged from the previous examination and is benign. No new nodule is apparent. An unchanged, noncalcified 2 mm right lower lobe nodule is also noted on image 105. This is also benign. No axillary, mediastinal or hilar adenopathy is apparent. The heart is normal in size. An AVR is again demonstrated. ABDOMEN/PELVIS: The liver is normal in size, shape and attenuation. The bile ducts are within normal limits. No lymphadenopathy is evident. No free fluid is demonstrated. The spleen, adrenal glands and pancreas are negative. The kidneys are unremarkable. The bowel is negative. An IUD is present in the uterus. The uterus is otherwise unremarkable. No ovarian abnormality is evident. Procedure Note Moises Mckenna MD - 07/25/2024 For Patients: As a result of the Cures Act, medical imagingexams and procedure reports are released immediately into your electronicmedical record. You may view this report before your referring provider.If you have questions, please contact your health care provider. INDICATION: Fever of unknown origin TECHNIQUE: Volumetric helical scanning of the chest, abdomen and pelvis was performedwith 100cc of Omnipaque 350 contrast material IV. Coronal and sagittalreconstructions were obtained. COMPARISON: Chest CT of 03/01/2021 FINDINGS: CHEST: No infiltrate, airway abnormality or pleural effusion isdemonstrated. A noncalcified 6 mm right lower lobe nodule is demonstrated on image 80 ofseries 9. This is unchanged from the previous examination and is benign.No new nodule is apparent. An unchanged, noncalcified 2 mm right lowerlobe nodule is also noted on image 105. This is also benign. No axillary, mediastinal or hilar adenopathy is apparent. The heart is normal in size. An AVR is again demonstrated. ABDOMEN/PELVIS: The liver is normal in size, shape and attenuation. Thebile ducts are within normal limits. No lymphadenopathy is evident. Nofree fluid is demonstrated. The spleen, adrenal glands and pancreas are negative. The kidneys areunremarkable. The bowel is negative. An IUD is present in the uterus. Theuterus is otherwise unremarkable. No ovarian abnormality is evident. IMPRESSION: 1. Etiology of fever not evident. No inflammatory or neoplastic processdemonstrated. 2. AVR. 3. Several benign right lower lobe nodules. Please note that all CT scans at this facility use dose modulation,iterative reconstruction, and/or weight-based dosing when appropriate toreduce radiation dose to as low as reasonably achievable. Dictated by Moises Mckenna MD @ 07/25/2024 4:30:35 PM (Electronically Signed) Luz Elena Jiang MD CT Final Re sult * BLOOD CULTURE (07/22/2024 11:33 AM CDT) Only the most recent of2 resultswithin the time period is included. BLOOD CULTURE SEE NOTE [facility] Comment: CULTURE, BLOOD Micro Number: [id number] Test Status: Final Specimen Source: Blood l ac Specimen Quality: Adequate Result: No growth after 5 days TRANSPORT MEDIA: Aerobic and anaerobic bottle received. Blood BLOOD SPECIMEN / Unknown 07/22/2024 11:33 AM CDT 07/22/2024 11:34 AM CDT Luz Elena Jiang MD MICROBIOLOGY Final Re sult Performing Organization Address City/[facility]/ZIP Co de Phone Number [employer] [facility] [address] [place] [address], [place] [phone] [facility] [address] [place] [address] * (ABNORMAL) EBV AB IGG IGM AND EBNA (07/22/2024 11:32 AM CDT) Pathologist [facility] [place] EBV VIRAL CAPSID AG (VCA) AB (IGM) <36.00 U/mL [facility] [employer] [facility] Comment: U/mL Interpretation ---- <36.00 Negative 36.00-43.99 Equivocal >43.99 Positive EBV VIRAL CAPSID AG (VCA) AB (IGG) >750.00(H ) U/mL [employer] [facility] Comment: U/mL Interpretation ---- <18.00 Negative 18.00-21.99 Equivocal >21.99 Positive EBV NUCLEAR AG (EBNA) AB (IGG) 63.50(H) U/mL [facility] Comment: U/mL Interpretation ---- <18.00 Negative 18.00-21.99 Equivocal >21.99 Positive MARIBEL HOLDER VIRUS ANTIBODY PANEL INTERPRETATION [employer] Comment: Suggestive of a past Maribel-Holder virus infection. In infants, a similar pattern may occur as a result of passive maternal transfer of antibody. Blood BLOOD SPECIMEN / Unknown 07/22/2024 11:32 AM CDT 07/22/2024 11:32 AM CDT Luz Elena Jiang MD SEND OUTS Final Re sult [employer] [facility] [address] [place] [address], [place] [phone] [facility] [address] [place] [address] * CMV IGG ANTIBODY [id number] (07/22/2024 11:32 AM CDT) [facility] CYTOMEGALOVIRUS ANTIBODY (IGG) <0.60 U/mL [facility] [place] Comment: U/mL Interpretation ----- <0.60 Negative 0.60-0.69 Equivocal > or = 0.70 Positive A positive result indicates that the patient has antibody to CMV. It does not differentiate between an active or past infection. Blood BLOOD SPECIMEN / Unknown 07/22/2024 11:32 AM CDT 07/22/2024 11:32 AM CDT Luz Elena Jiang MD SEND OUTS Final Re sult [employer] [facility] [address] [place] [address], [facility] [address] [place] [address] * LYME SCREEN W/REFLEX (07/22/2024 11:32 AM CDT) [facility] LYME AB, SCREEN < or = 0.90 index [facility], Comment: REFERENCE RANGE: < OR = 0.90 Index Index Interpretation < OR = 0.90 NEGATIVE 0.91 - 1.09 EQUIVOCAL > OR = 1.10 POSITIVE This assay measures Lyme Disease (Borrelia burgdorferi) IgG plus IgM antibodies; it does not distinguish results that are both IgG and IgM positive from results that are either IgG or IgM positive. As recommended by the Centers for Disease Control and Prevention (CDC), all samples with positive or equivocal results in this screening assay will be tested using separate supplemental Lyme IgG and IgM immunoassays. Positive or equivocal screening assay results should not be interpreted as truly positive until verified as such using the supplemental assays. Screening and/or supplemental tests for Lyme disease antibodies may be falsely negative in early stages of Lyme disease, including the period when erythema migrans is apparent. These assays may be falsely positive in patients with other spirochetal diseases (e.g., syphilis) or infectious mononucleosis. Blood BLOOD SPECIMEN / Unknown 07/22/2024 11:32 AM CDT 07/22/2024 11:32 AM CDT Luz Elena Jiang MD SEND OUTS Final Re sult Performing Organization Address [facility] de Phone Number [employer] [facility] [address] [place] [address], [employer], [address] [place] [address] * ANTI HIV 1/2 (07/22/2024 11:32 AM CDT) [facility] HIV AG/AB, 4TH GEN NON-REACT VIKKI NON-REACT VIKKI [facility] Comment: HIV-1 antigen and HIV-1/HIV-2 antibodies were not detected. There is no laboratory evidence of HIV infection. PLEASE NOTE: This information has been disclosed to you from records whose confidentiality may be protected by state law. If your state requires such protection, then the state law prohibits you from making any further disclosure of the information without the specific written consent of the person to whom it pertains, or as otherwise permitted by law. A general authorization for the release of medical or other information is NOT sufficient for this purpose. For additional information please refer to http://education.[email or web address]/faq/HUN524 (This link is being provided for informational/ educational purposes only.) The performance of this assay has not been clinically validated in patients less than 2 years old. Blood BLOOD SPECIMEN / Unknown 07/22/2024 11:32 AM CDT 07/22/2024 11:32 AM CDT Luz Elena Jiang MD SEND OUTS Final Re sult Performing Organization Address [facility] Co de Phone Number [employer] [facility] [address] [place] [address], [facility] [address] [place] [address] * CMV IGM ANTIBODY (07/22/2024 11:32 AM CDT) [facility] CYTOMEGALOVIRUS ANTIBODY (IGM) <30.00 AU/mL [facility] Comment: AU/mL Interpretation ----- <30.00 No Antibody Detected 30.00-34.99 Equivocal > or = 35.00 Antibody Detected Results from any one IgM assay should not be used as a sole determinant of a current or recent infection. Because an IgM test can yield false positive results and low level IgM antibody may persist for more than 12 months post infection, reliance on a single test result could be misleading. Acute infection is best diagnosed by demonstrating the conversion of IgG from negative to positive. If an acute infection is suspected, consider obtaining a new specimen and submit for both IgG and IgM testing in two or more weeks. Blood BLOOD SPECIMEN / Unknown 07/22/2024 11:32 AM CDT 07/22/2024 11:32 AM CDT Luz Elena Jiang MD SEND OUTS Final Re sult [employer] [address] [address], [facility] [address] [place] [address] * (ABNORMAL) CBC AND DIFFERENTIAL (07/22/2024 11:32 AM CDT) [facility] WHITE BLOOD CELL COUNT 3.7(L) 3.8 - 10.8 Thousand/u L [facility] RED BLOOD CELL COUNT 4.99 3.80 - 5.10 Million/uL [facility] HEMOGLOBIN 14.1 11.7 - 15.5 g/dL [facility] HEMATOCRIT 42.9 35.0 - 45.0 % [facility] [place] MCV 86.0 80.0 - 100.0 fL [facility] [place] MCH 28.3 27.0 - 33.0 pg [facility] [place] MCHC 32.9 32.0 - 36.0 g/dL [facility] [place] Comment: For adults, a slight decrease in the calculated MCHC value (in the range of 30 to 32 g/dL) is most likely not clinically significant; however, it should be interpreted with caution in correlation with other red cell parameters and the patient's clinical condition. RDW 13.6 11.0 - 15.0 % [facility] [place] PLATELET COUNT 263 140 - 400 Thousand/u L [facility] MPV 12.1 7.5 - 12.5 fL [facility] ABSOLUTE NEUTROPHILS 1,994 1,500 - 7,800 cells/uL [facility] [place] ABSOLUTE LYMPHOCYTES 1,169 850 - 3,900 cells/uL [facility] [place] ABSOLUTE MONOCYTES 392 200 - 950 cells/uL [facility] [place] ABSOLUTE EOSINOPHILS 93 15 - 500 cells/uL [facility] ABSOLUTE BASOPHILS 52 0 - 200 cells/uL [facility] [place] NEUTROPHILS 53.9 % [facility] LYMPHOCYTES 31.6 % [facility] MONOCYTES 10.6 % [facility] EOSINOPHILS 2.5 % [facility] BASOPHILS 1.4 % [facility] Blood BLOOD SPECIMEN / Unknown 07/22/2024 11:32 AM CDT 07/22/2024 11:32 AM CDT us Luz Elena Jiang MD HEMATOLOGY Final Re sult [facility] [employer] [facility] [address] [place] [address], [facility] [address] [place] [address] * FERRITIN (07/22/2024 11:32 AM CDT) FERRITIN 20 16 - 154 ng/mL [facility] [place] Blood BLOOD SPECIMEN / Unknown 07/22/2024 11:32 AM CDT 07/22/2024 11:32 AM CDT Luz Elena Jiang MD CHEMISTRY Final Re sult Performing Organization Address City/[facility]/ZIP Co de Phone Number [facility] [address] [facility] [place] [place] [address], [place] [phone] [facility] [address] [place] [address] * TREPONEMA PALLIDUM (07/22/2024 11:29 AM CDT) TREPONEMA PALLIDUM Non-Reacti ve Non-Reacti ve 07/22/2024 11:[address] [facility] Blood BLOOD SPECIMEN / Unknown [facility] / Unknown 07/22/2024 11:29 AM CDT 07/22/2024 11:29 AM CDT Luz Elena Jiang MD SEND OUTS Final Re sult Performing Organization Address City/[facility]/ZIP Co de Phone Number [facility] [address] [place] [address], [place] * SCAN-LABORATORY REPORT (07/22/2024 12:00 AM CDT) us Scanner OTHER Final Result * US VENOUS INSUFFICIENCY LOWER EXTREMITY BILATERAL (07/11/2024 8:27 AM CDT) Anatomical Region Laterality Modality LEGS Ultrasound 07/11/2024 7:35 AM CDT Narrative 07/11/2024 8:44 AM CDT VASCULAR ULTRASOUND REPORT VERNA GUNTER : 1985 Study Date: 07/11/2024 7:35:03 AM Age: 39 years Tech: BCW Gender: F Referring MD: ELINA JERONIMO Site: [facility] Study performed: Duplex US venous insufficiency, (bilateral). Indication for study: Swelling of both lower extremities; Fatigue TECHNIQUE: Lower/upper extremity veins were examined with duplex ultrasound, color-flow and spectral Doppler per exam protocol. Vein compressibility by transducer pressure was used to evaluate presence/absence of DVT/SVT. Venous flow and competence was evaluated by flow augmentation maneuvers per exam protocol. Insufficiency studies were performed with the patient in upright position, with vein diameters measured in mm, and reflux. IMPRESSION: 1. No evidence of deep vein thrombosis in the right and left lower extremity. 2. No evidence of deep venous insufficiency in the right and left lower extremity. 3. Superficial venous insufficiency was noted in the right sapheno-femoral junction and greater saphenous vein at proximal thigh and mid thigh. 4. The right greater saphenous vein and small saphenous vein are patent and compressible. 5. Superficial venous insufficiency was noted in the left sapheno-femoral junction and greater saphenous vein at proximal thigh, mid thigh and distal thigh. 6. The left greater saphenous vein and small saphenous vein are patent and compressible. COMPARISON: No prior study available for comparison. FINDINGS: Right Lower Extremity: No deep venous insufficiency. No evidence of DVT. Left Lower Extremity: No deep venous insufficiency. No evidence of DVT. MEASUREMENTS: + +--------+----+--------+------+ RIGHT Compress SVT Diameter Reflux (mm) (secs) + +--------+----+--------+------+ SFJ yes None 9.4 6.2 + +--------+----+--------+------+ GSV THIGH PRX yes None 5.3 6.4 + +--------+----+--------+------+ GSV THIGH MID yes None 5.3 6.2 + +--------+----+--------+------+ GSV THIGH DST yes None 5.3 0.0 + +--------+----+--------+------+ GSV KNEE yes None 4.7 0.0 + +--------+----+--------+------+ GSV CALF UPPER yes None 4.0 0.0 + +--------+----+--------+------+ GSV CALF MID yes None 2.5 0.0 + +--------+----+--------+------+ GSV CALF LOW yes None 2.8 0.0 + +--------+----+--------+------+ SSV KNEE/SPJ yes None 3.8 0.0 + +--------+----+--------+------+ SSV CALF MID yes None 2.4 0.0 + +--------+----+--------+------+ AASV THIGH PRX yes None 2.9 0.0 + +--------+----+--------+------+ + +--------+----+ +------+ LEFT Compress SVT Diameter (mm) Reflux (secs) + +--------+----+ +------+ SFJ yes None 8.8 1.3 + +--------+----+ +------+ GSV THIGH PRX yes None 5.8 5.6 + +--------+----+ +------+ GSV THIGH MID yes None 5.5 5.7 + +--------+----+ +------+ GSV THIGH DST yes None 4.9 6.4 + +--------+----+ +------+ GSV KNEE yes None 4.3 0.0 + +--------+----+ +------+ GSV CALF UPPER yes None 1.3 0.0 + +--------+----+ +------+ GSV CALF MID yes None 1.0 0.0 + +--------+----+ +------+ GSV CALF LOW yes None 2.7 0.0 + +--------+----+ +------+ SSV KNEE/SPJ + +--------+----+ +------+ SSV CALF MID yes None 3.3 0.0 + +--------+----+ +------+ AASV THIGH PRX + +--------+----+ +------+ can't evaluate DEEP SYSTEM +--------+--------+-----+ +--------+----+ + RIGHT RIGHT RIGHT LEFT LEFT LEFT Compress DVT Reflux (secs) Compress DVT Reflux (secs) +--------+--------+-----+ +--------+----+ + CFV yes None 0.0 yes None 0.0 +--------+--------+-----+ +--------+----+ + PFV yes None 0.0 yes None 0.0 +--------+--------+-----+ +--------+----+ + FV yes None 0.0 yes None 0.0 +--------+--------+-----+ +--------+----+ + POPV yes None 0.0 yes None 0.0 +--------+--------+-----+ +--------+----+ + PTV yes None 0.0 yes None 0.4 +--------+--------+-----+ +--------+----+ + PERONEAL yes None yes None +--------+--------+-----+ +--------+----+ + can't evaluate Yaritza Clark MD. Electronically signed on 07/11/2024 8:44:39 AM This study was performed and interpreted by a service accredited by the Intersocietal Accreditation Commission (IAC/Vascular), www.intersocietal.org/vascular Report generated by [employer]. Final Procedure Note Yaritza Clark MD - 07/11/2024 VASCULAR ULTRASOUND REPORT VERNA GUNTER : 1985 Study Date: 07/11/2024 7:35:03 AM Age: 39 years Tech: BCW Gender: F Referring MD: ELINA JERONIMO Site: [facility] Study performed: Duplex US venous insufficiency, (bilateral). Indication for study: Swelling of both lower extremities; Fatigue TECHNIQUE: Lower/upper extremity veins were examined with duplex ultrasound,color-flow and spectral Doppler per exam protocol. Vein compressibility bytransducer pressure was used to evaluate presence/absence of DVT/SVT.Venous flow and competence was evaluated by flow augmentation maneuversper exam protocol. Insufficiency studies were performed with the patientin upright position, with vein diameters measured in mm, and reflux. IMPRESSION: 1. No evidence of deep vein thrombosis in the right and left lowerextremity. 2. No evidence of deep venous insufficiency in the right and left lowerextremity. 3. Superficial venous insufficiency was noted in the rightsapheno-femoral junction and greater saphenous vein at proximal thigh andmid thigh. 4. The right greater saphenous vein and small saphenous vein are patentand compressible. 5. Superficial venous insufficiency was noted in the left sapheno- femoraljunction and greater saphenous vein at proximal thigh, mid thigh anddistal thigh. 6. The left greater saphenous vein and small saphenous vein are patentand compressible. COMPARISON: No prior study available for comparison. FINDINGS: Right Lower Extremity: No deep venous insufficiency. No evidence of DVT. Left Lower Extremity: No deep venous insufficiency. No evidence of DVT. MEASUREMENTS: + +--------+----+--------+------+ RIGHT Compress SVT Diameter Reflux (mm) (secs) + +--------+----+--------+------+ SFJ yes None 9.4 6.2 + +--------+----+--------+------+ GSV THIGH PRX yes None 5.3 6.4 + +--------+----+--------+------+ GSV THIGH MID yes None 5.3 6.2 + +--------+----+--------+------+ GSV THIGH DST yes None 5.3 0.0 + +--------+----+--------+------+ GSV KNEE yes None 4.7 0.0 + +--------+----+--------+------+ GSV CALF UPPER yes None 4.0 0.0 + +--------+----+--------+------+ GSV CALF MID yes None 2.5 0.0 + +--------+----+--------+------+ GSV CALF LOW yes None 2.8 0.0 + +--------+----+--------+------+ SSV KNEE/SPJ yes None 3.8 0.0 + +--------+----+--------+------+ SSV CALF MID yes None 2.4 0.0 + +--------+----+--------+------+ AASV THIGH PRX yes None 2.9 0.0 + +--------+----+--------+------+ + +--------+----+ +------+ LEFT Compress SVT Diameter (mm) Reflux (secs) + +--------+----+ +------+ SFJ yes None 8.8 1.3 + +--------+----+ +------+ GSV THIGH PRX yes None 5.8 5.6 + +--------+----+ +------+ GSV THIGH MID yes None 5.5 5.7 + +--------+----+ +------+ GSV THIGH DST yes None 4.9 6.4 + +--------+----+ +------+ GSV KNEE yes None 4.3 0.0 + +--------+----+ +------+ GSV CALF UPPER yes None 1.3 0.0 + +--------+----+ +------+ GSV CALF MID yes None 1.0 0.0 + +--------+----+ +------+ GSV CALF LOW yes None 2.7 0.0 + +--------+----+ +------+ SSV KNEE/SPJ + +--------+----+ +------+ SSV CALF MID yes None 3.3 0.0 + +--------+----+ +------+ AASV THIGH PRX + +--------+----+ +------+ can't evaluate DEEP SYSTEM +--------+--------+-----+ +--------+----+ + RIGHT RIGHT RIGHT LEFT LEFT LEFT Compress DVT Reflux (secs) Compress DVT Reflux (secs) +--------+--------+-----+ +--------+----+ + CFV yes None 0.0 yes None 0.0 +--------+--------+-----+ +--------+----+ + PFV yes None 0.0 yes None 0.0 +--------+--------+-----+ +--------+----+ + FV yes None 0.0 yes None 0.0 +--------+--------+-----+ +--------+----+ + POPV yes None 0.0 yes None 0.0 +--------+--------+-----+ +--------+----+ + PTV yes None 0.0 yes None 0.4 +--------+--------+-----+ +--------+----+ + PERONEAL yes None yes None +--------+--------+-----+ +--------+----+ + can't evaluate Yaritza Clark MD. Electronically signed on 07/11/2024 8:44:39 AM This study was performed and interpreted by a service accredited by theIntersocietal Accreditation Commission (IAC/Vascular),www.intersocietal.org/vascular Report generated by [employer]. Final us Elina Jeronimo DO US Final Result * (ABNORMAL) URINALYSIS MICROSCOPIC (05/20/2024 9:17 AM LOANS OFFICER) RBC 0-2 0-2, None Seen /HPF 05/20/2024 3:25 PM LOANS OFFICER [facility] TRAL LAB[facility]ATORY WBC 0-2 0-2, 3-5, None Seen /HPF 05/20/2024 3:25 PM LOANS OFFICER [facility] BACTERIA Rare None Seen, Rare, Few Bacteria/ HPF 05/20/2024 3:25 PM LOANS OFFICER [facility] EPITHELIAL CELLS Moderate(A ) None Seen, Few Epi/HPF 05/20/2024 3:25 PM LOANS OFFICER [facility] HYALINE CASTS 0-2 0-2, 3-5 /LPF 05/20/2024 3:25 PM LOANS OFFICER [facility] Urine URINE SPECIMEN / Unknown Non-Blood / Unknown 05/20/2024 9:17 AM LOANS OFFICER 05/20/2024 9:17 AM LOANS OFFICER us Watson Monroe MD URINE Final Result [facility] [address] [place] [address], * PROTEIN/CREAT RATIO,URINE (05/20/2024 9:17 AM LOANS OFFICER) PROTEIN QUANT,RAND URINE <6 1 - 14 mg/dL 05/20/2024 4:51 PM [facility] TRAL LAB[facility]ATORY CREAT,RANDOM URINE 52.9 28.0 - 217.0 mg/dL 05/20/2024 4:51 PM [facility] LAB[facility] PROT/CREAT RATIO,UR 05/20/2024 4:51 PM LOANS OFFICER [facility] Comment:Urine Protein below measurement range, unable to calculate. Urine URINE SPECIMEN / Unknown Non-Blood / Unknown 05/20/2024 9:17 AM LOANS OFFICER 05/20/2024 9:17 AM [facility] us Watson Monroe MD URINE Final Result [facility] [address] [place] [address], [place] * (ABNORMAL) UA W/ SEDIMENT EXAM REFLEXED PER CRITERIA (05/20/2024 9:17 AM [facility]) COLOR Yellow Yellow Color 05/20/2024 3:19 PM LOANS OFFICER [facility] NTRIA LABORATORY CLARITY Clear Clear Clarity 05/20/2024 3:19 PM [facility] NTRAL LABORATORY SPECIFIC GRAVITY,URINE 1.020 1.010, 1.015, 1.020, 1.025 05/20/2024 3:19 PM LOANS OFFICER [facility] N[facility]IA LABORATORY PH,URINE 6.0 6.0, 7.0, 8.0, 5.5, 6.5, 7.5, 8.5 05/20/2024 3:19 PM LOANS OFFICER [facility] LABORATORY UROBILINOGEN, QUALITATIVE Normal Normal EU/dl 05/20/2024 3:19 PM [facility] LAB[facility]ORY PROTEIN, URINE Negative Negative mg/dL 05/20/2024 3:19 PM [facility] LAB[facility] GLUCOSE, URINE Negative Negative mg/dL 05/20/2024 3:19 PM [facility] KETONES,URINE Negative Negative mg/dL 05/20/2024 3:19 PM LOANS OFFICER [facility] LABORATORY BILIRUBIN,URI NE Negative Negative 05/20/2024 3:19 PM LOANS OFFICER [facility] LABORATORY OCCULT BLOOD,URINE Moderate(A) Negative 05/20/2024 3:19 PM LOANS OFFICER [facility] LABORATORY NITRITE Negative Negative 05/20/2024 3:19 PM LOANS OFFICER [facility] LABORATORY LEUKOCYTE ESTERASE Negative Negative 05/20/2024 3:19 PM LOANS OFFICER [facility] LABOR[facility]ORY Urine URINE SPECIMEN / Unknown Non-Blood / Unknown 05/20/2024 9:17 AM LOANS OFFICER 05/20/2024 9:17 AM LOANS OFFICER us Watson Monroe MD URINE Final Result [facility] [address] [place] [address], * (ABNORMAL) PROTIME-INR [[id number]] - Standing Order (05/20/2024 9:16 AM LOANS OFFICER) Only the most recent of2 resultswithin the time period is included. INR 1.5(H) <1.3 05/20/2024 1:12 PM [facility] LAB[facility] PROTIME 17.3(H) 10.6 - 12.4 sec 05/20/2024 1:12 PM LOANS OFFICER [facility] LAB[facility] Blood BLOOD SPECIMEN / Unknown [facility] / Unknown 05/20/2024 9:16 AM LOANS OFFICER 05/20/2024 9:16 AM LOANS OFFICER Narrative [facility] - 05/20/2024 1:12 PM LOANS OFFICER Therapeutic Range 2.0-3.0 for most anticoagulated patients 2.5-3.5 or 4.0 for high risk patients The INR is only used for patients on stable oral anticoagulant therapy. It makes no significant contribution to the diagnosis or treatment of patients whose Protime is prolonged for other reasons. INR results are increased when heparin levels exceed 1.0 U/mL, which corresponds to an aPTT >125 seconds if the patient is on UFH. Elina Jeronimo DO HEMATOLOGY Final Result [facility]-CEN[facility]AL LABORATORY [address] [place] [address], * (ABNORMAL) ANTINUCLEAR ANTIBODIES TITER AND PATTERN ([facility] REFLEX ONLY) (05/16/2024 10:25 AM LOANS OFFICER) ADALGISA TITER 1:320(H) titer [facility] Comment: Reference Range <1:40 Negative 1:40-1:80 Low Antibody Level >1:80 Elevated Antibody Level ADALGISA PATTERN Nuclear, Speckled( A) [facility] merle Sr Comment: Speckled pattern is associated with mixed connective tissue disease (MCTD), systemic lupus erythematosus (SLE), Sjogren's syndrome, dermatomyositis, and systemic sclerosis/polymyositis overlap. AC-2,4,5,29: Speckled International Consensus on ADALGISA Patterns (https://doi.org/10.1515/otpp-1543-6405) 05/16/2024 10:2 5 AM LOANS OFFICER 05/16/2024 10:25 AM LOANS OFFICER [facility] Final Result Performing Organization Address [facility] Co de Phone Number [employer] [facility] [address] [place] [address], [facility] [address] [place] [address] * INTERPRETATION ([facility]) (05/16/2024 10:25 AM LOANS OFFICER) ADALGISA CASCADE INTERPRETATION [facility]Betzy Sr Comment: FOREST [employer] PREVENTION SPECIALIST antibody is found in patients with mixed connective tissue disease in high titer. This antibody may also be seen in systemic lupus erythematosus and other connective tissue diseases. A positive result at this stage of testing stops further testing, and does not preclude additional positive antibodies. Clinical correlation is required to assess the need for testing additional analytes. 05/16/2024 10:2 5 AM LOANS OFFICER 05/16/2024 10:25 AM LOANS OFFICER Elina Jeronimo DO SEND OUTS Final Result [facility] [address] [place] [address], [facility] [address] [place] [address] * (ABNORMAL) TIER 1 ([facility]) (05/16/2024 10:25 AM LOANS OFFICER) DNA (DS) ANTIBODY 1 IU/mL Qu [employer] [facility] Comment: IU/mL Interpretation < or = 4 Negative 5-9 Indeterminate > or = 10 Positive SM ANTIBODY <1.0 NEG <1.0 NEG AI PlanStan Dale SM/FOREST FIRE PREVENTION SPECIALIST ANTIBODY <1.0 NEG <1.0 NEG AI PlanStan Dale FOREST FIRE PREVENTION SPECIALIST ANTIBODY 1.8 POS(A) <1.0 NEG AI PlanStan Dale CHROMATIN (NUCLEOSOMAL) ANTIBODY <1.0 NEG <1.0 NEG AI [facility] Comment: ANTIBODY PREVALENCE IN TIER 1 Double stranded DNA (dsDNA) antibodies are present in 57% to 62% systemic lupus erythematosus (SLE), 10% to 43% polymyositis, 11% to 20% Sjogren's syndrome, 8% systemic sclerosis (scleroderma) and 0% to 8% mixed connective tissue disease (MCTD). Chromatin antibody is present in >80% MCTD, 37% to 73% SLE, 14% systemic sclerosis, 12% Sjogren's syndrome and 8% polymyositis. Ribonucleoprotein (FOREST FIRE PREVENTION SPECIALIST) antibodies are to FOREST FIRE PREVENTION SPECIALIST A and/or FOREST FIRE PREVENTION SPECIALIST 68kD proteins; antibodies to one or both are present in >80% MCTD, 22% to 48% SLE, 14% systemic sclerosis, 12% Sjogren's and 8% polymyositis. Sm/FOREST FIRE PREVENTION SPECIALIST antibodies are directed to epitopes formed in a complex of Sm and FOREST FIRE PREVENTION SPECIALIST; antibodies to the Sm/FOREST FIRE PREVENTION SPECIALIST complex are present in 54% to 94% MCTD, 30% SLE, 4% systemic sclerosis, and 9% Sjogren's and polymyositis. Sm antibody is present in 20% to 30% SLE, 8% MCTD, 10% polymyositis, 0% systemic sclerosis and 4% Sjogren's syndrome. Double stranded DNA, Chromatin, Ribonucleoprotein, Sm/FOREST FIRE PREVENTION SPECIALIST complex and Sm antibodies are present in <2% of normal blood donors. The [place] does not rule out autoimmune disease characterized by other autoantibody specificities such as rheumatoid arthritis, autoimmune hepatitis, primary biliary cirrhosis, autoimmune thyroiditis, Jarocho's disease, pernicious anemia, autoimmune neuropathies, vasculitis, celiac disease and bullous disease. Please contact your local [facility] laboratory if you are interested in additional testing. 05/16/2024 10:2 5 AM LOANS OFFICER 05/16/2024 10:25 AM LOANS OFFICER Elina Alla Donnytravis DO SEND OUTS Final Result [employer] [facility] [address] [place] [address], [facility] [address] [place] [address] * (ABNORMAL) ADALGISA CASCADE(ADALGISA,IFA W/RFL AND REFL 11 AB CASCADE) (M[employer]) (05/16/2024 10:25 AM LOANS OFFICER) ADALGISA SCREEN, IFA POSITIVE( A) NEGATIVE [facility] Comment: ADALGISA IFA is a first line screen for detecting the presence of up to approximately 150 autoantibodies in various autoimmune diseases. A positive ADALGISA IFA result is suggestive of autoimmune disease and reflexes to titer, pattern and the 3 tiered Multiplex 11 Antibody [place]. Testing in the [place] stops at the first positive result, and does not preclude additional positive results. Further laboratory testing may be considered if clinically indicated. For additional information, please refer to http://education.[employer]/faq/TCT338 (This link is being provided for informational/ educational purposes only.) Blood BLOOD SPECIMEN / Unknown 05/16/2024 10:25 AM LOANS OFFICER 05/16/2024 10:25 AM LOANS OFFICER Watson Monroe MD SEND OUTS Final Result [facility] [address] [facility] [place] [address], [place] [phone] [facility] [address] [place] [address] * THYROGLOBULIN ANTIBODY (05/16/2024 10:25 AM LOANS OFFICER) THYROGLOBULIN ANTIBODIES 1 < or = 1 IU/mL [facility] Blood BLOOD SPECIMEN / Unknown 05/16/2024 10:25 AM LOANS OFFICER 05/16/2024 10:25 AM LOANS OFFICER Watson Monroe MD SEND OUTS Final Result Performing Organization Address [facility] Co de Phone Number [facility] [employer] [facility] [address] [facility] [place] [place] [address], [place] [phone] [facility] [address] [place] [address] * ANTI ALICIA 1 (05/16/2024 10:25 AM LOANS OFFICER) ALICIA-1 ANTIBODY <1.0 NEG <1.0 NEG AI [facility] Blood BLOOD SPECIMEN / Unknown 05/16/2024 10:25 AM LOANS OFFICER 05/16/2024 10:25 AM LOANS OFFICER Elina Jeronimo DO SEND OUTS Final Result [facility] [employer] [facility] [address] [facility] [place] [address], [place] [phone] [facility] [address] [place] [address] * ANTISCLERODERMA 70 ANTIBODIES (05/16/2024 10:25 AM LOANS OFFICER) SCL-70 ANTIBODY <1.0 NEG <1.0 NEG AI [facility] Blood BLOOD SPECIMEN / Unknown 05/16/2024 10:25 AM LOANS OFFICER 05/16/2024 10:25 AM LOANS OFFICER Elina Alla Hinesqra DO SEND OUTS Final Result Performing Organization Address [facility]/ZIP Co de Phone Number [employer] [facility] [address] [place] [address], [place] [phone] [facility] [address] [facility] [address] * (ABNORMAL) FOREST [employer]ION SPECIALIST ANTIBODY (05/16/2024 10:25 AM LOANS OFFICER) FOREST FIRE PREVENTION SPECIALIST ANTIBODY 1.8 POS(A) <1.0 NEG AI [facility] Blood BLOOD SPECIMEN / Unknown 05/16/2024 10:25 AM LOANS OFFICER 05/16/2024 10:25 AM LOANS OFFICER [employer] Kandace DO SEND OUTS Final Result Performing Organization Address [facility]/ZIP Co de Phone Number [employer] [facility] [address] [place] [address], [place] [phone] [facility] [address] [place] [address] * ANTI-JAEGER (05/16/2024 10:25 AM LOANS OFFICER) SM ANTIBODY <1.0 NEG <1.0 NEG AI [facility] Blood BLOOD SPECIMEN / Unknown 05/16/2024 10:25 AM LOANS OFFICER 05/16/2024 10:25 AM LOANS OFFICER Elina Alla Donnyqra DO SEND OUTS Final Result Performing Organization Address [facility]/ZIP Co de Phone Number [employer] [facility] [address] [place] [address], [place] [phone] [facility] [address] [place] [address] * (ABNORMAL) SJOGRENS ANTIBODIES (05/16/2024 10:25 AM LOANS OFFICER) SJOGREN'S ANTIBODY (SS-A) 3.4 POS(A) <1.0 NEG AI [facility] SJOGREN'S ANTIBODY (SS-B) <1.0 NEG <1.0 NEG AI [facility] olele Sr Blood BLOOD SPECIMEN / Unknown 05/16/2024 10:25 AM LOANS OFFICER 05/16/2024 10:25 AM LOANS OFFICER us Elina Alla Donnyspeedy DO SEND OUTS Final Result [employer] [facility] [address] [place] [address], [facility] [address] [place] [address] * BETA 2 GLYCOPROTEIN I OLGA LIDIA (05/16/2024 10:25 AM LOANS OFFICER) B2 GLYCOPROTEIN I (IGG)AB <2.0 U/mL [facility] merle Sr Comment: Value Interpretation ----- < 20.0 Antibody not detected > or = 20.0 Antibody detected The antiphospholipid antibody syndrome (APS) is a clinical-pathologic correlation that includes a clinical event (e.g. arterial or venous thrombosis, morbidity) and persistent positive antiphospholipid antibodies (IgM, IgG Cardiolipin or b2GPI antibodies greater than the 99th percentile; or a lupus anticoagulant). International consensus guidelines for APS suggest waiting at least 12 weeks before retesting to confirm antibody persistence. The Systemic Lupus International Collaborating [facility] immunological classification criteria for systemic lupus erythematosus (SLE) include testing for isotype IgA, which has yet to be incorporated into APS criteria. Low level antiphospholipid antibodies may sometimes be detected in the setting of infection, drug therapy or aging. For additional information, please refer to http://education.[employer]/faq/EDH949 (This link is being provided for informational/ educational purposes only.) B2 GLYCOPROTEIN I (IGM)AB 4.2 U/mL HeyAnita merle Sr Comment: Value Interpretation ----- < 20.0 Antibody not detected > or = 20.0 Antibody detected The antiphospholipid antibody syndrome (APS) is a clinical-pathologic correlation that includes a clinical event (e.g. arterial or venous thrombosis, morbidity) and persistent positive antiphospholipid antibodies (IgM, IgG Cardiolipin or b2GPI antibodies greater than the 99th percentile; or a lupus anticoagulant). International consensus guidelines for APS suggest waiting at least 12 weeks before retesting to confirm antibody persistence. The Systemic Lupus International Collabor[facility] immunological classification criteria for systemic lupus erythematosus (SLE) include testing for isotype IgA, which has yet to be incorporated into APS criteria. Low level antiphospholipid antibodies may sometimes be detected in the setting of infection, drug therapy or aging. For additional information, please refer to http://Flyzik/faq/WZB726 (This link is being provided for informational/ educational purposes only.) B2 GLYCOPROTEIN I (IGA)AB <2.0 U/mL HeyAnita merle Sr Comment: Value Interpretation ----- < 20.0 Antibody not detected > or = 20.0 Antibody detected The antiphospholipid antibody syndrome (APS) is a clinical-pathologic correlation that includes a clinical event (e.g. arterial or venous thrombosis, morbidity) and persistent positive antiphospholipid antibodies (IgM, IgG Cardiolipin or b2GPI antibodies greater than the 99th percentile; or a lupus anticoagulant). International consensus guidelines for APS suggest waiting at least 12 weeks before retesting to confirm antibody persistence. The Systemic Lupus International Collabor[facility] immunological classification criteria for systemic lupus erythematosus (SLE) include testing for isotype IgA, which has yet to be incorporated into APS criteria. Low level antiphospholipid antibodies may sometimes be detected in the setting of infection, drug therapy or aging. For additional information, please refer to http://MobileCause.[employer]/faq/RSU584 (This link is being provided for informational/ educational purposes only.) Blood BLOOD SPECIMEN / Unknown 05/16/2024 10:25 AM LOANS OFFICER 05/16/2024 10:25 AM LOANS OFFICER Watson Monroe MD SEND OUTS Final Result Performing Organization Address [facility]/ZIP Co de Phone Number [employer] [facility] [address] [place] [address], [place] [phone] [facility] [address] [place] [address] * CYCLIC CITRULLINE PEPTIDE (05/16/2024 10:25 AM LOANS OFFICER) CYCLIC CITRULLINATED PEPTIDE (CCP) AB (IGG) <16 UNITS HeyAnita merle Sr Comment: Reference Range Negative: <20 Weak Positive: 20-39 Moderate Positive: 40-59 Strong Positive: >59 Blood BLOOD SPECIMEN / Unknown 05/16/2024 10:25 AM LOANS OFFICER 05/16/2024 10:25 AM LOANS OFFICER Elinacherie Jeronimo DO SEND OUTS Final Result Performing Organization Address [facility] Co de Phone Number [employer] [facility] [address] [place] [address], [place] [phone] [facility] [address] [place] [address] * CARDIOLIPIN ANTIBODY (05/16/2024 10:25 AM LOANS OFFICER) CARDIOLIPIN AB (IGA) <2.0 APL-U/mL [facility] merle Sr Comment: Value Interpretation ----- < 20.0 Antibody not detected > or = 20.0 Antibody detected CARDIOLIPIN AB (IGG) <2.0 GPL-U/mL [facility] merle Sr Comment: Value Interpretation ----- < 20.0 Antibody not detected > or = 20.0 Antibody detected CARDIOLIPIN AB (IGM) 5.0 MPL-U/mL [facility] bloom Remberto Comment: Value Interpretation ----- < 20.0 Antibody not detected > or = 20.0 Antibody detected The antiphospholipid antibody syndrome (APS) is a clinical-pathologic correlation that includes a clinical event (e.g. arterial or venous thrombosis, morbidity) and persistent positive antiphospholipid antibodies (IgM, IgG Cardiolipin or b2GPI antibodies greater than the 99th percentile; or a lupus anticoagulant). International consensus guidelines for APS suggest waiting at least 12 weeks before retesting to confirm antibody persistence. The Systemic Lupus International Collaborating [facility] immunological classification criteria for systemic lupus erythematosus (SLE) include testing for isotype IgA, which has yet to be incorporated into APS criteria. Low level antiphospholipid antibodies may sometimes be detected in the setting of infection, drug therapy or aging. For additional information, please refer to http://education.[employer]/faq/DHW559 (This link is being provided for informational/ educational purposes only.) Blood BLOOD SPECIMEN / Unknown 05/16/2024 10:25 AM LOANS OFFICER 05/16/2024 10:25 AM LOANS OFFICER us Watson Monroe MD SEND OUTS Final Result Performing Organization Address [facility]/ZIP Co de Phone Number [employer] [facility] [address] [place] [address], [facility] [address] [place] [address] * THYROPEROXIDASE ANTIBODY (05/16/2024 10:25 AM LOANS OFFICER) THYROID PEROXIDASE ANTIBODIES <1 <9 IU/mL [facility] Blood BLOOD SPECIMEN / Unknown 05/16/2024 10:25 AM LOANS OFFICER 05/16/2024 10:25 AM LOANS OFFICER Watson Monroe MD SEND OUTS Final Result Performing Organization Address City/[facility]/ZIP Co de Phone Number [employer] [facility] [address] [place] [address], [place] [phone] [facility] [address] [place] [address] * C3 COMPLEMENT (05/16/2024 10:25 AM LOANS OFFICER) COMPLEMENT COMPONENT C3C 119 83 - 193 mg/dL [facility] Blood BLOOD SPECIMEN / Unknown 05/16/2024 10:25 AM LOANS OFFICER 05/16/2024 10:25 AM LOANS OFFICER Elina Alla Donnyq DO CHEMISTRY Final Result [facility] [address] [place] [address], [place] [phone] [facility] [address] [facility] [place] [address] * C4 COMPLEMENT (05/16/2024 10:25 AM LOANS OFFICER) COMPLEMENT COMPONENT C4C 19 15 - 57 mg/dL [facility] Blood BLOOD SPECIMEN / Unknown 05/16/2024 10:25 AM LOANS OFFICER 05/16/2024 10:25 AM LOANS OFFICER Elina Hinesq DO CHEMISTRY Final Result [facility] [address] [facility] [place] [address], [place] [phone] [facility] [address] [facility] [place] [address] * POTASSIUM (05/16/2024 10:25 AM LOANS OFFICER) POTASSIUM 3.7 3.5 - 5.3 mmol/L [facility] Blood BLOOD SPECIMEN / Unknown 05/16/2024 10:25 AM LOANS OFFICER 05/16/2024 10:25 AM LOANS OFFICER Watson Monroe MD CHEMISTRY Final Result Performing Organization Address [facility]/ZIP Co de Phone Number [facility] [address] [place] [address], [place] [phone] [facility] [address] [facility] [place] [address] * CREATININE (05/16/2024 10:25 AM LOANS OFFICER) CREATININE 0.72 0.50 - 0.97 mg/dL [facility] EGFR 109 > OR = 60 mL/min/1.73 m2 [facility] Blood BLOOD SPECIMEN / Unknown 05/16/2024 10:25 AM LOANS OFFICER 05/16/2024 10:25 AM LOANS OFFICER us Watson Monroe MD CHEMISTRY Final Result Performing Organization Address [facility] de Phone Number [facility] [address] [place] [address], [place] [phone] [facility] [address] [facility] [address] * [id number] (05/16/2024 10:25 AM LOANS OFFICER) Pathologist [facility] DNA (DS) ANTIBODY 1 IU/mL [facility] Comment: IU/mL Interpretation < or = 4 Negative 5-9 Indeterminate > or = 10 Positive Blood BLOOD SPECIMEN / Unknown 05/16/2024 10:25 AM LOANS OFFICER 05/16/2024 10:25 AM LOANS OFFICER us Elina Jeronimo DO SEND OUTS Final Result Performing Organization Address [facility]/ZIP Co de Phone Number [facility] [address] [place] [address], [place] [phone] [facility] [address] [facility] [place] [place] [address] * ALT (SGPT) (05/16/2024 10:25 AM LOANS OFFICER) ALT 19 6 - 29 U/L [facility] Blood BLOOD SPECIMEN / Unknown 05/16/2024 10:25 AM LOANS OFFICER 05/16/2024 10:25 AM LOANS OFFICER Watson Monroe MD CHEMISTRY Final Result [facility] [address] [facility] [place] [address], [place] [phone] [facility] [address] [facility] [place] [address] * AST (SGOT) (05/16/2024 10:25 AM LOANS OFFICER) AST 17 10 - 30 U/L [facility] Blood BLOOD SPECIMEN / Unknown 05/16/2024 10:25 AM LOANS OFFICER 05/16/2024 10:25 AM LOANS OFFICER Watson Monroe MD CHEMISTRY Final Result Performing Organization Address City/[facility]/ZIP Co de Phone Number [facility] [address] [facility] [place] [address], [place] [phone] [facility] [address] [facility] [place] [address] * CK TOTAL (05/16/2024 10:25 AM LOANS OFFICER) CREATINE KINASE, TOTAL 66 20 - 239 U/L [facility] Blood BLOOD SPECIMEN / Unknown 05/16/2024 10:25 AM LOANS OFFICER 05/16/2024 10:25 AM LOANS OFFICER Watson Monroe MD CHEMISTRY Final Result [facility] [address] [facility] [place] [address], [place] [phone] [facility] [address] * HPV HIGH RISK (05/25/2021 10:51 AM LOANS OFFICER) TYPE 16 Negative Negative 05/27/2021 11:43 AM LOANS OFFICER [facility] TYPE 18 Negative Negative 05/27/2021 11:43 AM LOANS OFFICER [facility] OTHER HIGH RISK TYPES Negative Negative 05/27/2021 11:43 AM LOANS OFFICER [facility] Other (Cervical) Non-Blood / Unknown 05/25/2021 10:51 AM LOANS OFFICER 05/26/2021 8:23 AM LOANS OFFICER Narrative [facility] - 05/27/2021 11:43 AM LOANS OFFICER HPV types 16, 18, 31, 33, 35, 39, 45, 51, 52, 56, 58, 59, 66 and 68 DNA were undetectable or below the pre-set threshold. Methodology: Main Dion 4800 HPV Test Veronica TANNER MICROBIOLOGY Final Result [facility] [address] [place] [address], * ANTI HCV (07/28/2008 12:46 PM CDT) ANTI HCV Non-reacti ve [facility] Blood specimen (specimen) BLOOD SPECIMEN / Unknown 07/28/2008 12:46 PM CDT 07/28/2008 12:40 PM CDT Dalia TANNER SEND OUTS Final Result [facility] INTERNAL ZIP [address] [place] [phone] from Last 3 Months or Most Recently Relevant to Health Maintenance Additional Health Concerns Infection Onset Date Last Indicated COVID-19 07/30/2024 07/30/2024 Insurance [employer] Advance Directives Documents on File Type Date Recorded Patient Sight Mounter Expl anation Healthcare Directive 02/13/2021 021 * Full Code (Latest Code Status on File) Date Activated Date Inactivated Comments 01/26/2022 5:08 PM 01/27/2022 2:48 PM Question Answer Comments Code Status Discussion: Reviewed Preferences * Full Code Date Activated Date Inactivated Comments 02/17/2021 9:59 AM 02/21/2021 2:04 PM Question Answer Comments Code Status Discussion: Not DiscussedPer Existin g Order * Full Code Date Activated Date Inactivated Comments 01/29/2021 11:33 AM 01/30/2021 2:18 AM Question Answer Comments Code Status Discussion: Not Discussed * Full Code Date Activated Date Inactivated Comments 06/25/2007 3:48 PM 06/26/2007 4:28 PM Care Teams Shredded Filler Hopper Feeder Relationship Specialty Start Date End Date Elina Jeronimo DO [address] [place] [address] PCP - General Family Practice 01/07/22
--- NOTE | 2024-08-05 03:52 | ED.GENADULT ---
HPI - General Adult General Time Seen by Provider: 03:54 Date Seen: 08/05/24 Chief complaint: Fever Stated complaint: covid pos, fever, cough Time Seen by Provider: 08/05/24 03:56 Source: patient, RN notes reviewed and old records reviewed Mode of arrival: ambulatory Limitations: no limitations History of Present Illness HPI narrative: 39-year-old female currently anticoagulated on Coumadin due to mechanical heart valve replacement, also history of diastolic heart failure, was diagnosed with COVID last week. Was treated with prednisone for glucose spasm, was feeling better and then in the last 2 days has had increased shortness of breath, dyspnea on exertion, in fevers have returned. Cough and sore throat have improved. No vomiting or diarrhea, no lower extremity swelling. Patient is concerned about worsening symptoms. Related Data Home Medications ?Medication ?Instructions ?Recorded ?Confirmed dextroamphetamine-amphetamine .ROUTE 01/18/22 furosemide 20 mg tablet 20 mg 01/18/22 metoprolol tartrate 25 mg tablet mg 01/18/22 potassium chloride 20 mEq meq PO 01/18/22 tablet,extended release warfarin 3 mg tablet mg 01/18/22 dextroamphetamine-amphetamine 30 1 tab PO BID 08/30/22 08/30/22 mg tablet ferrous sulfate 325 mg (65 mg 325 mg PO DAILY 08/30/22 08/30/22 iron) tablet,delayed release ivabradine 5 mg tablet (Corlanor) 5 mg PO BID 08/30/22 08/30/22 metoprolol tartrate 100 mg tablet mg PO 08/30/22 metoprolol tartrate 50 mg tablet mg PO 08/30/22 Allergies Allergy/AdvReac Type Severity Reaction Status Date / Time terbutaline Allergy Unknown Verified 08/05/24 05:31 [facility] Social History Smoking Status: Never smoker Do you use any of these nicotine containing products: None Second hand tobacco smoke exposure: No How often do you have a drink containing alcohol: never How many standard drinks containing alcohol do you have on a typical day: 1 or 2 How often do you have six or more drinks on one occasion: Never AUDIT-C Alcohol total score: 0 Non-prescribed substance use: denies use Exam Narrative: Exam Narrative: General: Well-developed and well-nourished, no acute distress Head: Atraumatic and normocephalic Eyes: Pupils are equal reactive, extraocular motions intact, conjunctiva clear ENT: External nose and ears are normal, posterior pharynx without erythema or exudate Neck: No midline cervical tenderness, full spontaneous range of motion the neck, trachea midline, no adenopathy Heart: Prominent valve click Lungs: Clear to auscultation bilaterally without wheezes or crackles Abdomen: Soft, nontender, nondistended with active bowel sounds Musculoskeletal: No tenderness, deformity, or edema Neurologic: Awake, alert, and oriented x3, no gross focal neurologic deficits, cranial nerves intact as tested Psych: Mood and affect are appropriate Skin: No rashes Const: Vital Signs, click to edit/add: Vital Signs - 24 hr 08/05/24 03:56 Temperature 98.8 F Pulse Rate [Right Pulse Oximeter] 88 Respiratory Rate 18 Blood Pressure [Ri ght Upper Arm] 133/81 Pulse Oximetry 99 Oxygen Delivery Me thod Room Air Course Course ED Course: Reviewed prior office visit from July 30 when patient was seen with cough, COVID test was positive, chest x-ray negative, patient was given prednisone and Robitussin with codeine for symptom management. Patient presents today with return of fever and shortness of breath as well as dyspnea on exertion. Cough and sore throat are improved. On exam here, patient's finally stable. Lungs are clear, labs ordered along with CT PE study although patient is anticoagulated. Chest x-ray independently interpreted by me does not demonstrate acute infiltrate. Reevaluation(s) Time of Reevaluation #1: 06:33 Reevaluation #1: Labs independently interpreted by me with normal CBC, normal BNP, mild hypokalemia, normal BMP. CT PE study and panel interpreted by me negative for acute pulmonary embolism. Concern for increased shortness of breath and dyspnea on exertion and patient mechanical heart valve and now subtherapeutic INR. Care was discussed with Dr. Sullivan, [facility] who agrees with concern and recommends echocardiogram. Patient be transferred to [facility] for further cardiac evaluation, Lovenox is ordered. Vital Signs Vital signs: Initial Vital Signs Sepsis Action Taken by Nursing No Action Required 08/05/24 03:49 Vital Signs Temperature 98.8 F 08/05/24 03:56 Pulse Rate 88 08/05/24 03:56 Respiratory Rate 18 08/05/24 03:56 Blood Pressure 133/81 08/05/24 03:56 Pulse Oximetry 99 08/05/24 03:56 Oxygen Delivery Method Room Air 08/05/24 03:56 Temperature 98.8 F 08/05/24 03:56 Pulse Rate 88 08/05/24 03:56 Respiratory Rate 18 08/05/24 03:56 Blood Pressure 133/81 08/05/24 03:56 Pulse Oximetry 99 08/05/24 03:56 Oxygen Delivery Method Room Air 08/05/24 03:56 Medical Decision Making Lab Data Labs: Lab Results 08/05/24 Range/Units 04:22 WBC 11.83 H (4.50-11.00) K/uL RBC 4.46 (4.00-5.20) m/uL Hgb 12.6 (12.0-16.0) gm/dL Hct 38.4 (33.0-51.0) % MCV 86 (80-100) fL MCH 28 (26-34) pg MCHC 33 (32-36) gm/dL RDW Coeff of Riley 13.1 (11.5-15.5) % Plt Count 262 (140-440) K/uL Neut % (Auto) 62.7 (42.0-72.0) % Lymph % (Auto) 26.5 (20-44) % [place] % (Auto) 9.2 (0.0-11.0) % Eos % (Auto) 0.3 (0.0-7.0) % Baso % (Auto) 0.3 (0.0-3.0) % Neut # (Auto) 7.40 H (1.7-7.0) K/uL Lymph # (Auto) 3.10 H (0.90-2.90) K/uL [place] # (Auto) 1.10 H (0.00-0.90) K/UL Eos # (Auto) 0.00 (0.00-0.50) K/uL Baso # (Auto) 0.00 (0.00-0.30) K/uL Abs Immat Gran (auto) 0.10 (0.00-0.30) K/uL Imm/Tot Granulo (auto) 1.0 % INR 1.05 (0.91-1.10) Sodium 137 (135-149) mmol/L Potassium 3.3 L (3.6-5.1) mmol/L Chloride 104 (96-114) mmol/L Carbon Dioxide 28 (20-32) mmol/L Anion Gap 5 L (7-15) mEq/L BUN 27 H (5-24) mg/dL Creatinine 0.7 (0.5-1.5) mg/dL Estimated Creat Clear 103.89 Estimated GFR 112 ml/min Glucose 99 (60-115) mg/dL Calcium 9.6 (8.4-10.6) mg/dL Magnesium 1.9 (1.5-2.6) mg/dL NT-Pro-B Natriuret Pep 126 pg/mL Discharge Plan Discharge Clinical Impression: COVID, Subtherapeutic international normalized ratio (INR), S/P AVR (aortic valve replacement) Prescriptions: No Action metoprolol tartrate 100 mg tablet PO dextroamphetamine-amphetamine 30 mg tablet 1 tab PO BID metoprolol tartrate 50 mg tablet PO ferrous sulfate 325 mg (65 mg iron) tablet,delayed release (DR/EC) 325 mg PO DAILY Corlanor 5 mg tablet 5 mg PO BID warfarin 3 mg tablet Patient Comments: take 2 tablets by mouth on monday and monday; then 3 tablets on all other days or as directed. furosemide 20 mg tablet 20 mg Patient Comments: Take 1 Tablet (20 mg) by mouth 2 times daily metoprolol tartrate 25 mg tablet Patient Comments: TAKE 1/2 TABLET BY MOUTH 2 TIMES DAILY, MAY TAKE AN EXTRA TAB ONCE FOR PERSISTENTLY ELEVATED HEART potassium chloride 20 mEq tablet extended release PO Patient Comments: Take 2 Tablets (40 mEq) by mouth once daily with a meal. dextroamphetamine-amphetamine [Adderall] .ROUTE Follow Up/Referrals: Elina Jeronimo DO [Primary Care Provider] -
--- NOTE | 2024-08-05 03:55 | CRLHL7_ITS ---
For Patients: As a result of the Century Cures Act, medical imaging exams and procedure reports are released immediately into your electronic medical record. You may view this report before your referring provider. If you have questions, please contact your health care provider. INDICATION: Cough COMPARISON: January 18, 2022 TECHNIQUE: PA and lateral views of the chest were acquired FINDINGS: TUBES AND LINES: None. HEART AND MEDIASTINUM: The heart size is normal. The mediastinal contour appears normal for patient age.Sternotomy. LUNGS AND PLEURAL SPACES: The lungs appear normal.The pleural spaces are unremarkable. OSSEOUS STRUCTURES: Age-appropriate appearance. No acute focal finding. IMPRESSION: No evidence of active pulmonary disease. Sternotomy. Dictated by Jimime Tao MD @ 08/05/2024 4:14:05 AM (Electronically Signed)
[2024-08-05 03:56] VITALS: BP 133/81; PULSE 88; RESP 18; TEMP 37.1; O2SAT 99; BMI 31.2
--- NOTE | 2024-08-05 04:14 | CRLHL7_ITS ---
For Patients: As a result of the Century Cures Act, medical imaging exams and procedure reports are released immediately into your electronic medical record. You may view this report before your referring provider. If you have questions, please contact your health care provider. INDICATION: COVID. Dyspnea. COMPARISON: January 18, 2022 TECHNIQUE: : CT examination of the chest was performed with the uneventful intravenous administration of 95 cc of Isovue 370 while thin axial sections were obtained from above the apices of the lungs to the lung bases. The examination was timed as a pulmonary artery angiogram. Please note that all CT scans at this facility use dose modulation, iterative reconstruction, and/or weight-based dosing when appropriate to reduce radiation dose to as low as reasonably achievable. FINDINGS: : HEART and MEDIASTINUM: The heart size is normal. There is no mediastinal or hilar adenopathy or mass. There is no pericardial effusion. PULMONARY ARTERIAL CIRCULATION: There is no visible intraluminal filling defect to suggest pulmonary embolus. LUNGS and PLEURAL SPACES: No focal consolidation, infiltrate or mass. No pleural effusion or pneumothorax. Right lower lobe nodule measuring 3.8 millimeters. This is actually smaller than it was in 2021 and therefore benign. VISUALIZED UPPER ABDOMEN: The limited visualized upper abdominal structures appear normal. OSSEOUS STRUCTURES: Age-appropriate appearance. No acute fracture or destructive process.There has been a sternotomy TUBES and LINES: None. IMPRESSION: 1. There is no finding of pulmonary embolus. 2. No evidence of active pulmonary disease. Normal pleural spaces. Benign right lower lobe nodule. 3. Normal cardiac contour. Normal-appearing mediastinum. Has been a sternotomy and valve repair. Please note that all CT scans at this facility use dose modulation, iterative reconstruction, and/or weight-based dosing when appropriate to reduce radiation dose to as low as reasonably achievable. Dictated by Jimmie Tao MD @ 08/05/2024 5:50:19 AM (Electronically Signed)
--- OUTSIDE RECORDS SUMMARY | 2024-08-05 04:19 | XMS_ITS | Clinical Summary ---
Author Organization [facility] [facility] Address [address] [place] [address] Care Team Providers Care Naphthalene Still Operator Name Role Phone Elina Jeronimo DO Primary Care Provider [phone] Allergies Active Allergy Reactions Criticality Noted Date [...] Department Care Team Description 08/01/2024 Anticoagulation (warfarin) [facility] [address] [place] [address] 1, [facility]ticoagulation (Acelis) 07/31/2024 9:45 AM CDT Phone Office Visit [facility] [address] [place] [address] Elina Jeronimo DO 07/30/2024 2:15 PM CDT Ancillary Procedure [facility] [address] [place] [address] 07/30/2024 1:40 PM CDT Office Visit [facility] [address] [place] [facility] [place] [address] Rylee Jeronimo, DO Cough (3 days - she's been coughing so hard she has a HR of 180 and her 02 is in the 80s - using robotussin and advil dayquil) 07/30/2024 Travel 07/26/2024 Telephone [facility] [address] [place] [address] Luz Elena Jiang MD Results 07/26/2024 Telephone [facility] [address] [place] [address] Luz Elena Jiang MD Lab (both bottles, culture 2) 07/25/2024 7:30 AM CDT Ancillary Procedure [facility] [address] [facility] [address] 07/25/2024 Travel 07/22/2024 11:45 AM CDT Orders Only [address] [address] Lab, [facility] 07/22/2024 Orders Only [facility] Scanner 1 scan: (1-Ord) [facility], MULTIPLE LAB TESTS RESULTS, 07/22/2024 07/22/2024 Travel 07/18/2024 9:00 AM CDT Office Visit [facility] [address] [place] [address] Luz Elena Jiang MD Consult 07/18/2024 Travel 07/15/2024 Anticoagulation (warfarin) [facility] [address] [place] [address] Sir Jeronimoi Alla, DO Anticoagulation (Acelis HM ) 07/12/2024 9:20 AM CDT Office Visit [facility] [address] [place] [address] Donnyqra Elina Alla, DO Medication Management (Adderall ); Results ([place] results) 07/11/2024 7:20 AM CDT - 07/11/2024 11:59 PM CDT Hospital Encounter [facility] [address] [place] [address] Elina Jeronimo DO Swelling of both lower extremities; Fatigue, unspecified type 07/11/2024 Travel 06/29/2024 Anticoagulation (warfarin) [facility] [address] [place] [address] 1, [facility] Anticoagulation 06/17/2024 Telephone [facility] [address] [place] [address] Raymundo Traore, OD Prior Authorization (cycloSPORINE (Restasis) 0.05 % ophthalmic emulsion DENIED) 06/05/2024 Anticoagulation (warfarin) [facility] [address] [place] [address] 1, [facility] Anticoagulation (Acelis) 06/05/2024 Telephone [facility] [address] [place] [address] Elina Jeronimo, Anticoagulation (Annual re-enrollment /) 06/03/2024 8:00 AM TELEGRAPHIC INSTRUMENT SUPERVISOR Office Visit [facility] [address] [place] [address] Raymundo Traore, OD Eye Exam (CEE) 06/03/2024 Travel 05/31/2024 Travel 05/20/2024 9:30 AM TELEGRAPHIC INSTRUMENT SUPERVISOR Orders Only [facility] [address] [place] [address] Lab, ld Lab 05/20/2024 Anticoagulation (warfarin) [facility] [address] [place] [address] 1, [facility] Anticoagulation 05/20/2024 Travel 05/16/2024 9:30 AM TELEGRAPHIC INSTRUMENT SUPERVISOR Office Visit [facility] [address] [place] [address] Watson Monroe MD Consult (Positive sm/LICENSED NUCLEAR OPERATOR antibody/Positive ADALGISA (antinuclear antibody)/legs swelling and edema ) 05/16/2024 Anticoagulation (warfarin) [facility] [address] [place] [address] 1, [facility] Anticoagulation 05/16/2024 Anticoagulation (warfarin) [facility] [address] [place] [address] Elina Jeronimo, DO Error-please disregard (opened in error) 05/16/2024 Travel 05/14/2024 Travel 05/13/2024 Telephone [facility] [address] [place] [address] Elina Jeronimo Alla, DO Anticoagulation (OVERDUE #2 [...] on file Legal Sex Female 5:43 AM TELEGRAPHIC INSTRUMENT SUPERVISOR Gender Identity Not on file Sexual Orientation [...] Clin 07/19 Term F C-Sec [facility] [place] 04/05 Term M Last Filed Vital Signs [...] 07/22/2024, 07/28/2008 Medical Devices Implanted Type Area Glass Sander Device Identifier Shelf Expiration Date Model / Serial / Lot Valve Aortic 23mm On-X W/33mm Loni Ring - [id number] Implanted:Qty: 1 on 02/17/2021 by Laura Sears MD at [facility] N/A: Aortic Valve [employer] 10/08/2026 ONXANE-23 / [id number] / Screw Sternal 2.4x14mm Sterna Lock [employer]uro [employer] - [id number] Implanted:Qty: 8 on 02/17/2021 by Laura Sears MD at [facility] N/A: Sternum [employer] 73-2414 / / Screw Sternal 2.4x12mm Sterna Lock [employer] - [id number] Implanted:Qty: 16 on 02/17/2021 by Laura Sears MD at [facility] N/A: Sternum [employer] 73-2412 / / Plate Sternal X 8 Hole Sterna Lock - [id number] Implanted:Qty: 3 on 02/17/2021 by Laura Sears MD at [facility] N/A: Sternum [employer] 73-3493 / / Procedures Procedure Name Priority Date/Time [...] Fever, unspecified fever cause CMV IGG ANTIBODY 38220 Routine 11:32 AM CDT Fever, unspecified fever [...] HOME MONITOR AC Routine 06/29/2024 12:00 AM TELEGRAPHIC INSTRUMENT SUPERVISOR HOME MONITOR AC Routine 06/05/2024 12:00 AM TELEGRAPHIC INSTRUMENT SUPERVISOR URINALYSIS MICROSCOPIC Routine 9:17 AM TELEGRAPHIC INSTRUMENT SUPERVISOR Positive ADALGISA (antinuclear antibody) PROTEIN/CREAT RATIO,URINE Routine 05/20/2024 9:17 AM TELEGRAPHIC INSTRUMENT SUPERVISOR Positive ADALGISA (antinuclear antibody) UA W/ SEDIMENT EXAM REFLEXED PER CRITERIA Routine 05/20/2024 9:17 AM TELEGRAPHIC INSTRUMENT SUPERVISOR Positive ADALGISA (antinuclear antibody) PROTIME-INR Routine 05/20/2024 9:16 AM TELEGRAPHIC INSTRUMENT SUPERVISOR S/P AVR (aortic valve replacement) Anticoagulation monitoring, INR range 1.5-2.5, INR Goal 1.5-2.0 per Cardiology 06/01/22 PROTIME-INR Routine 05/16/2024 10:38 AM TELEGRAPHIC INSTRUMENT SUPERVISOR S/P AVR (aortic valve replacement) Anticoagulation monitoring, INR range 1.5-2.5, INR Goal 1.5-2.0 per Cardiology 06/01/22 ANTINUCLEAR ANTIBODIES TITER AND PATTERN (QUEST REFLEX ONLY) Routine 05/16/2024 10:25 AM TELEGRAPHIC INSTRUMENT SUPERVISOR INTERPRETATION (QUEST) Routine 10:25 AM TELEGRAPHIC INSTRUMENT SUPERVISOR TIER 1 (QUEST) Routine 05/16/2024 10:25 AM TELEGRAPHIC INSTRUMENT SUPERVISOR CYCLIC CITRULLINE PEPTIDE Routine 05/16/2024 10:25 AM TELEGRAPHIC INSTRUMENT SUPERVISOR Positive ADALGISA (antinuclear antibody) DNA DOUBLE-STRANDED (DSDNA) ANTIBODIES BY CRITHIDIA LUCILIAE IFA Routine 05/16/2024 10:25 AM TELEGRAPHIC INSTRUMENT SUPERVISOR Positive ADALGISA (antinuclear antibody) ANTI-JAEGER Routine 05/16/2024 10:25 AM TELEGRAPHIC INSTRUMENT SUPERVISOR Positive ADALGISA (antinuclear antibody) ANTISCLERODERMA 70 ANTIBODIES Routine 05/16/2024 10:25 AM TELEGRAPHIC INSTRUMENT SUPERVISOR Positive ADALGISA (antinuclear antibody) ANTI ALICIA 1 Routine 05/16/2024 10:25 AM TELEGRAPHIC INSTRUMENT SUPERVISOR Positive ADALGISA (antinuclear antibody) SJOGRENS ANTIBODIES Routine 05/16/2024 1 0:25 AM TELEGRAPHIC INSTRUMENT SUPERVISOR Positive ADALGISA (antinuclear antibody) LICENSED NUCLEAR OPERATOR ANTIBODY Routine 05/16/2024 10:25 AM TELEGRAPHIC INSTRUMENT SUPERVISOR Positive ADALGISA (antinuclear antibody) C4 COMPLEMENT Routine 05/16/2024 10:25 AM TELEGRAPHIC INSTRUMENT SUPERVISOR Positive ADALGISA (antinuclear antibody) C3 COMPLEMENT Routine 05/16/2024 10:25 AM TELEGRAPHIC INSTRUMENT SUPERVISOR Positive ADALGISA (antinuclear antibody) BETA 2 GLYCOPROTEIN I OLGA LIDIA Routine 05/16/2024 10:25 AM TELEGRAPHIC INSTRUMENT SUPERVISOR Positive ADALGISA (antinuclear antibody) Ribonucleoprotein antibody positive Leg swelling Generalized anxiety disorder Positive sm/LICENSED NUCLEAR OPERATOR antibody Myalgia Dysphagia, unspecified type Dry eyes Fever, unspecified fever cause CARDIOLIPIN ANTIBODY Routine 05/16/2024 10:25 AM TELEGRAPHIC INSTRUMENT SUPERVISOR Positive ADALGISA (antinuclear antibody) Ribonucleoprotein antibody positive Leg swelling Generalized anxiety disorder Positive sm/LICENSED NUCLEAR OPERATOR antibody Myalgia Dysphagia, unspecified type Dry eyes Fever, unspecified fever cause ADALGISA CASCADE(ADALGISA,IFA W/RFL AND REFL 11 AB CASCADE) (QUEST) Routine 05/16/2024 10:25 AM TELEGRAPHIC INSTRUMENT SUPERVISOR Positive ADALGISA (antinuclear antibody) Ribonucleoprotein antibody positive Leg swelling Generalized anxiety disorder Positive sm/LICENSED NUCLEAR OPERATOR antibody Myalgia Dysphagia, unspecified type Dry eyes Fever, unspecified fever cause THYROPEROXIDASE ANTIBODY Routine 05/16/2024 10:25 AM TELEGRAPHIC INSTRUMENT SUPERVISOR Positive ADALGISA (antinuclear antibody) Ribonucleoprotein antibody positive Leg swelling Generalized anxiety disorder Positive sm/LICENSED NUCLEAR OPERATOR antibody Myalgia Dysphagia, unspecified type Dry eyes Fever, unspecified fever cause THYROGLOBULIN ANTIBODY Routine 10:25 AM TELEGRAPHIC INSTRUMENT SUPERVISOR Positive ADALGISA (antinuclear antibody) Ribonucleoprotein antibody positive Leg swelling Generalized anxiety disorder Positive sm/LICENSED NUCLEAR OPERATOR antibody Myalgia Dysphagia, unspecified type Dry eyes Fever, unspecified fever cause POTASSIUM Routine 05/16/2024 10:25 AM TELEGRAPHIC INSTRUMENT SUPERVISOR Positive ADALGISA (antinuclear antibody) Ribonucleoprotein antibody positive Leg swelling Generalized anxiety disorder Positive sm/LICENSED NUCLEAR OPERATOR antibody Myalgia Dysphagia, unspecified type Dry eyes Fever, unspecified fever cause ALT (SGPT) Routine 05/16/2024 10:25 AM TELEGRAPHIC INSTRUMENT SUPERVISOR Positive ADALGISA (antinuclear antibody) Ribonucleoprotein antibody positive Leg swelling Generalized anxiety disorder Positive sm/LICENSED NUCLEAR OPERATOR antibody Myalgia Dysphagia, unspecified type Dry eyes Fever, unspecified fever cause AST (SGOT) Routine 05/16/2024 10:25 AM TELEGRAPHIC INSTRUMENT SUPERVISOR Positive ADALGISA (antinuclear antibody) Ribonucleoprotein antibody positive Leg swelling Generalized anxiety disorder Positive sm/LICENSED NUCLEAR OPERATOR antibody Myalgia Dysphagia, unspecified type Dry eyes Fever, unspecified fever cause CREATININE Routine 05/16/2024 10:25 AM TELEGRAPHIC INSTRUMENT SUPERVISOR Positive ADALGISA (antinuclear antibody) Ribonucleoprotein antibody positive Leg swelling Generalized anxiety disorder Positive sm/LICENSED NUCLEAR OPERATOR antibody Myalgia Dysphagia, unspecified type Dry eyes Fever, unspecified fever cause CK TOTAL Routine 05/16/2024 10:25 AM TELEGRAPHIC INSTRUMENT SUPERVISOR Positive ADALGISA (antinuclear antibody) Ribonucleoprotein antibody positive Leg swelling Generalized anxiety disorder Positive sm/LICENSED NUCLEAR OPERATOR antibody Myalgia Dysphagia, unspecified type Dry eyes Fever, unspecified fever cause HOME MONITOR AC Routine 05/16/2024 12:00 AM TELEGRAPHIC INSTRUMENT SUPERVISOR HPV HIGH RISK Routine 05/25/2021 10:51 AM TELEGRAPHIC INSTRUMENT SUPERVISOR Pap smear for cervical cancer screening ANTI [...] OTHER Final Result JENNY [facility] [address] [place] [address] * XR CHEST 2 VIEWS PA [...] COVID/FLU/RSV PANEL (07/30/2024 2:08 PM CDT) Pathologist [facility] COVID 19 [facility] Positive(A) Negative 07/31/2024 3:44 AM CDT [facility] INFLUENZA A PCR Negative 3:44 AM CDT [facility] INFLUENZA B PCR Negative 3:44 AM CDT [facility] Respiratory Syncytial Virus Negative 07/31/2024 3:44 AM CDT [facility] Swab NASOPHARYNGEAL SWAB / Unknown Non-Blood / Unknown 07/30/2024 2:08 PM CDT 07/30/2024 2:08 PM CDT [facility] [place] [facility] MICROBIOLOGY Final Result Performing Organization Address City/[facility]/ZIP Co de Phone Number [facility] [address] [place] [address], * POCT Throat Rapid Strep (07/30/2024 2:08 PM CDT) Pathologist [facility] POC, GROUP A STREP NOT DETECTED NOT DETECTED [facility] Comment: The [place] [employer] recommends that a throat culture be performed if a rapid group A streptococcus assay yields a negative result. [facility] recommends Streptococcus, Group A culture. Throat SPECIMEN FROM THROAT / Unknown 07/30/2024 2:08 PM CDT 07/30/2024 2:09 PM CDT [facility] MICROBIOLOGY Final Result Performing Organization Address City/[facility]/ZIP Co de Phone Number [facility] [address] [place] [address], [place] [phone] [facility] [address] [place] [address] * CT CHEST ABDOMEN PELVIS W (07/25/2024 [...] period is included. BLOOD CULTURE SEE NOTE [facility] Comment: CULTURE, BLOOD Micro Number: [id number] Test Status: Final Specimen Source: Blood l ac Specimen Quality: Adequate Result: No growth after 5 days TRANSPORT MEDIA: Aerobic and anaerobic bottle received. Blood BLOOD SPECIMEN / Unknown 07/22/2024 11:33 AM CDT 07/22/2024 11:34 AM CDT Luz Elena Jiang MD MICROBIOLOGY Final Re sult Performing Organization Address City/[facility]/ZIP Co de Phone Number [facility] [address] [place] [address], [place] [phone] [employer] [address] [place] [address] * (ABNORMAL) EBV AB IGG IGM AND EBNA (07/22/2024 11:32 AM CDT) Pathologist [facility] EBV VIRAL CAPSID AG (VCA) AB (IGM) <36.00 U/mL [facility] Comment: U/mL Interpretation ---- <36.00 Negative 36.00-43.99 Equivocal >43.99 Positive EBV VIRAL CAPSID AG (VCA) AB (IGG) >750.00(H ) U/mL [facility] Comment: U/mL Interpretation ---- <18.00 Negative 18.00-21.99 Equivocal >21.99 Positive EBV NUCLEAR AG (EBNA) AB (IGG) 63.50(H) U/mL [facility] Comment: U/mL Interpretation ---- <18.00 Negative 18.00-21.99 Equivocal >21.99 Positive MARIBEL HOLDER VIRUS ANTIBODY PANEL INTERPRETATION [facility] Comment: Suggestive of a past Maribel-Holder virus infection. In infants, a similar pattern may occur as a result of passive maternal transfer of antibody. Blood BLOOD SPECIMEN / Unknown 07/22/2024 11:32 AM CDT 07/22/2024 11:32 AM CDT Luz Elena Jiang MD SEND OUTS Final Re sult [facility] [address] [place] [address], [place] [phone] [employer] [address] [place] [address] * CMV IGG ANTIBODY [address] (07/22/2024 11:32 AM CDT) [facility] CYTOMEGALOVIRUS ANTIBODY (IGG) <0.60 U/mL [facility] Comment: U/mL Interpretation ----- <0.60 Negative 0.60-0.69 Equivocal > or = 0.70 Positive A positive result indicates that the patient has antibody to CMV. It does not differentiate between an active or past infection. Blood BLOOD SPECIMEN / Unknown 07/22/2024 11:32 AM CDT 07/22/2024 11:32 AM CDT Luz Elena Jiang MD SEND OUTS Final Re sult [facility] [address] [place] [address], [facility] [address] [place] [address] * LYME SCREEN W/REFLEX (07/22/2024 11:32 AM CDT) [facility] LYME AB, SCREEN < or = 0.90 index [facility], Comment: REFERENCE RANGE: < OR = 0.90 [...] OUTS Final Re sult Performing Organization Address [facility] de Phone Number [employer] [facility] [address] [place] [address], [employer] [facility], [address] [place] [address] * ANTI HIV 1/2 (07/22/2024 11:32 AM CDT) [facility] HIV AG/AB, 4TH GEN NON-REACT VIKKI NON-REACT VIKKI [employer] Comment: HIV-1 antigen and HIV-1/HIV-2 antibodies were [...] purpose. For additional information please refer to http://education.[email or web address]/faq/QYD230 (This link is being provided for informational/ educational purposes only.) The performance of this assay has not been clinically validated in patients less than 2 years old. Blood BLOOD SPECIMEN / Unknown 07/22/2024 11:32 AM CDT 07/22/2024 11:32 AM CDT Luz Elena Jiang MD SEND OUTS Final Re sult Performing Organization Address [facility] Co de Phone Number [employer] [facility] [address] [place] [address], [facility] [address] [place] [address] * CMV IGM ANTIBODY (07/22/2024 11:32 AM CDT) [facility] CYTOMEGALOVIRUS ANTIBODY (IGM) <30.00 AU/mL [facility] Comment: AU/mL Interpretation ----- <30.00 No Antibody [...] Jiang MD SEND OUTS Final Re sult [facility] [address] [address], [facility] [address] [place] [address] * (ABNORMAL) CBC AND DIFFERENTIAL (07/22/2024 11:32 AM CDT) [facility] WHITE BLOOD CELL COUNT 3.7(L) 3.8 - 10.8 Thousand/u L [facility] RED BLOOD CELL COUNT 4.99 3.80 - 5.10 Million/uL [employer] HEMOGLOBIN 14.1 11.7 - 15.5 g/dL [employer] HEMATOCRIT 42.9 35.0 - 45.0 % [facility] [...] Jiang MD HEMATOLOGY Final Re sult [facility] [employer] [facility] [address] [place] [address], [facility] [address] [place] [address] * FERRITIN (07/22/2024 11:32 AM CDT) FERRITIN 20 16 - 154 ng/mL [facility] Blood BLOOD SPECIMEN / Unknown 07/22/2024 11:32 AM CDT 07/22/2024 11:32 AM CDT Luz Elena Jiang MD CHEMISTRY Final Re sult Performing Organization Address City/[facility]/ZIP Co de Phone Number [facility] [address] [facility] [place] [address], [place] [phone] [facility] [address] [place] [address] * TREPONEMA PALLIDUM (07/22/2024 11:29 AM CDT) TREPONEMA PALLIDUM Non-Reacti ve Non-Reacti ve 07/22/2024 11:16 PM CDT [facility] Blood BLOOD SPECIMEN / Unknown [facility] / Unknown 07/22/2024 11:29 AM CDT 07/22/2024 11:29 AM CDT Luz Elena Jiang MD SEND OUTS Final Re sult Performing Organization Address City/[facility]/ZIP Co de Phone Number [facility] [address] [place] [address], [place] * SCAN-LABORATORY REPORT (07/22/2024 12:00 AM CDT) us Scanner OTHER Final Result * US VENOUS INSUFFICIENCY LOWER EXTREMITY BILATERAL (07/11/2024 8:27 AM CDT) Anatomical Region Laterality Modality LEGS Ultrasound 07/11/2024 7:35 AM CDT Narrative 07/11/2024 8:44 AM CDT VASCULAR ULTRASOUND REPORT VERNA GUNTER : 1985 Study Date: 07/11/2024 7:35:03 AM Age: 39 years Tech: BCW Gender: F Referring MD: ELINA JERONIMO Site: [facility] Study performed: Duplex US venous insufficiency, (bilateral). [...] Accreditation Commission (IAC/Vascular), www.intersocietal.org/vascular Report generated by [employer]. Final Procedure Note Yaritza Clark MD - 07/11/2024 VASCULAR ULTRASOUND REPORT VERNA GUNTER : 1985 Study Date: 07/11/2024 7:35:03 AM Age: 39 years Tech: BCW Gender: F Referring MD: ELINA JERONIMO Site: [facility] Study performed: Duplex US venous insufficiency, (bilateral). [...] theIntersocietal Accreditation Commission (IAC/Vascular),www.intersocietal.org/vascular Report generated by [employer]. Final us Elina Jeronimo DO US Final Result * (ABNORMAL) URINALYSIS MICROSCOPIC (05/20/2024 9:17 AM TELEGRAPHIC INSTRUMENT SUPERVISOR) RBC 0-2 0-2, None Seen /HPF 05/20/2024 3:25 PM TELEGRAPHIC INSTRUMENT SUPERVISOR [facility] WBC 0-2 0-2, 3-5, None Seen /HPF 05/20/2024 3:25 PM TELEGRAPHIC INSTRUMENT SUPERVISOR [facility] BACTERIA Rare None Seen, Rare, Few Bacteria/ HPF 05/20/2024 3:25 PM TELEGRAPHIC INSTRUMENT SUPERVISOR [facility] EPITHELIAL CELLS Moderate(A ) None Seen, Few Epi/HPF 05/20/2024 3:25 PM TELEGRAPHIC INSTRUMENT SUPERVISOR [facility] HYALINE CASTS 0-2 0-2, 3-5 /LPF 05/20/2024 3:25 PM TELEGRAPHIC INSTRUMENT SUPERVISOR [facility] Urine URINE SPECIMEN / Unknown Non-Blood / Unknown 05/20/2024 9:17 AM TELEGRAPHIC INSTRUMENT SUPERVISOR 05/20/2024 9:17 AM TELEGRAPHIC INSTRUMENT SUPERVISOR us Watson Monroe MD URINE Final Result [facility] [address] [place] [address], * PROTEIN/CREAT RATIO,URINE (05/20/2024 9:17 AM TELEGRAPHIC INSTRUMENT SUPERVISOR) PROTEIN QUANT,RAND URINE <6 1 - 14 mg/dL 05/20/2024 4:51 PM [facility] CREAT,RANDOM URINE 52.9 28.0 - 217.0 mg/dL 05/20/2024 4:51 PM [facility] PROT/CREAT RATIO,UR 05/20/2024 4:51 PM TELEGRAPHIC INSTRUMENT SUPERVISOR [facility] Comment:Urine Protein below measurement range, unable to calculate. Urine URINE SPECIMEN / Unknown Non-Blood / Unknown 05/20/2024 9:17 AM TELEGRAPHIC INSTRUMENT SUPERVISOR 05/20/2024 9:17 AM [facility] us Watson Monroe MD URINE Final Result [facility] [address] [place] [address], [place] * (ABNORMAL) UA W/ SEDIMENT EXAM REFLEXED PER CRITERIA (05/20/2024 9:17 AM [facility]) COLOR Yellow Yellow Color 05/20/2024 3:19 PM TELEGRAPHIC INSTRUMENT SUPERVISOR [facility] CLARITY Clear Clear Clarity 05/20/2024 3:19 PM [facility] SPECIFIC GRAVITY,URINE 1.020 1.010, 1.015, 1.020, 1.025 05/20/2024 3:19 PM TELEGRAPHIC INSTRUMENT SUPERVISOR [facility] PH,URINE 6.0 6.0, 7.0, 8.0, 5.5, 6.5, 7.5, 8.5 05/20/2024 3:19 PM TELEGRAPHIC INSTRUMENT SUPERVISOR [facility] UROBILINOGEN, QUALITATIVE Normal Normal EU/dl 05/20/2024 3:19 PM [facility] PROTEIN, URINE Negative Negative mg/dL 05/20/2024 3:19 PM [facility] GLUCOSE, URINE Negative Negative mg/dL 05/20/2024 3:19 PM [facility] KETONES,URINE Negative Negative mg/dL 05/20/2024 3:19 PM TELEGRAPHIC INSTRUMENT SUPERVISOR [facility] BILIRUBIN,URI NE Negative Negative 05/20/2024 3:19 PM TELEGRAPHIC INSTRUMENT SUPERVISOR [facility] OCCULT BLOOD,URINE Moderate(A) Negative 05/20/2024 3:19 PM TELEGRAPHIC INSTRUMENT SUPERVISOR [facility] NITRITE Negative Negative 05/20/2024 3:19 PM TELEGRAPHIC INSTRUMENT SUPERVISOR [facility] LEUKOCYTE ESTERASE Negative Negative 05/20/2024 3:19 PM TELEGRAPHIC INSTRUMENT SUPERVISOR [facility] Urine URINE SPECIMEN / Unknown Non-Blood / Unknown 05/20/2024 9:17 AM TELEGRAPHIC INSTRUMENT SUPERVISOR 05/20/2024 9:17 AM TELEGRAPHIC INSTRUMENT SUPERVISOR us Watson Monroe MD URINE Final Result [facility] [address] [place] [address], * (ABNORMAL) PROTIME-INR [68588.0] - Standing Order (05/20/2024 9:16 AM TELEGRAPHIC INSTRUMENT SUPERVISOR) Only the most recent of2 resultswithin the time period is included. INR 1.5(H) <1.3 05/20/2024 1:12 PM [facility] PROTIME 17.3(H) 10.6 - 12.4 sec 05/20/2024 1:12 PM TELEGRAPHIC INSTRUMENT SUPERVISOR [facility] Blood BLOOD SPECIMEN / Unknown [facility] / Unknown 05/20/2024 9:16 AM TELEGRAPHIC INSTRUMENT SUPERVISOR 05/20/2024 9:16 AM TELEGRAPHIC INSTRUMENT SUPERVISOR Narrative [facility] - 05/20/2024 1:12 PM TELEGRAPHIC INSTRUMENT SUPERVISOR Therapeutic Range 2.0-3.0 for most anticoagulated patients [...] UFH. Elina Jeronimo DO HEMATOLOGY Final Result [facility] [address] [place] [address], * (ABNORMAL) ANTINUCLEAR ANTIBODIES TITER AND PATTERN ([facility] REFLEX ONLY) (05/16/2024 10:25 AM TELEGRAPHIC INSTRUMENT SUPERVISOR) ADALGISA TITER 1:320(H) titer [facility] Comment: Reference Range <1:40 Negative 1:40-1:80 Low Antibody Level >1:80 Elevated Antibody Level ADALGISA PATTERN Nuclear, Speckled( A) [facility] merle Sr Comment: Speckled pattern is associated with mixed connective tissue disease (MCTD), systemic lupus erythematosus (SLE), Sjogren's syndrome, dermatomyositis, and systemic sclerosis/polymyositis overlap. AC-2,4,5,29: Speckled International Consensus on ADALGISA Patterns (https://doi.org/10.1515/xsmx-4122-9805) 05/16/2024 10:2 5 AM TELEGRAPHIC INSTRUMENT SUPERVISOR 05/16/2024 10:25 AM TELEGRAPHIC INSTRUMENT SUPERVISOR [facility] Final Result Performing Organization Address [facility] Co de Phone Number [facility] [address] [place] [address], [employer] [address] [place] [address] * INTERPRETATION ([facility]) (05/16/2024 10:25 AM TELEGRAPHIC INSTRUMENT SUPERVISOR) ADALGISA CASCADE INTERPRETATION [employer]Betzy Sr Comment: LICENSED NUCLEAR OPERATOR antibody is found in patients with mixed connective tissue disease in high titer. This antibody may also be seen in systemic lupus erythematosus and other connective tissue diseases. A positive result at this stage of testing stops further testing, and does not preclude additional positive antibodies. Clinical correlation is required to assess the need for testing additional analytes. 05/16/2024 10:2 5 AM TELEGRAPHIC INSTRUMENT SUPERVISOR 05/16/2024 10:25 AM TELEGRAPHIC INSTRUMENT SUPERVISOR Elina Jeronimo DO SEND OUTS Final Result [facility] [address] [place] [address], [employer] [address] [place] [address] * (ABNORMAL) TIER 1 ([facility]) (05/16/2024 10:25 AM TELEGRAPHIC INSTRUMENT SUPERVISOR) DNA (DS) ANTIBODY 1 IU/mL Qu [employer] [facility] Comment: IU/mL Interpretation < or = 4 Negative 5-9 Indeterminate > or = 10 Positive SM ANTIBODY <1.0 NEG <1.0 NEG AI [employer] [facility] SM/LICENSED NUCLEAR OPERATOR ANTIBODY <1.0 NEG <1.0 NEG AI [employer] [facility] LICENSED NUCLEAR OPERATOR ANTIBODY 1.8 POS(A) <1.0 NEG AI [employer] [facility] CHROMATIN (NUCLEOSOMAL) ANTIBODY <1.0 NEG <1.0 NEG AI [employer] Comment: ANTIBODY PREVALENCE IN TIER 1 Double [...] 12% Sjogren's syndrome and 8% polymyositis. Ribonucleoprotein (LICENSED NUCLEAR OPERATOR) antibodies are to LICENSED NUCLEAR OPERATOR A and/or LICENSED NUCLEAR OPERATOR 68kD proteins; antibodies to one or both are present in >80% MCTD, 22% to 48% SLE, 14% systemic sclerosis, 12% Sjogren's and 8% polymyositis. Sm/LICENSED NUCLEAR OPERATOR antibodies are directed to epitopes formed in a complex of Sm and LICENSED NUCLEAR OPERATOR; antibodies to the Sm/LICENSED NUCLEAR OPERATOR complex are present in 54% to 94% MCTD, 30% SLE, 4% systemic sclerosis, and 9% Sjogren's and polymyositis. Sm antibody is present in 20% to 30% SLE, 8% MCTD, 10% polymyositis, 0% systemic sclerosis and 4% Sjogren's syndrome. Double stranded DNA, Chromatin, Ribonucleoprotein, Sm/LICENSED NUCLEAR OPERATOR complex and Sm antibodies are present in <2% of normal blood donors. The [place] does not rule out autoimmune disease characterized by other autoantibody specificities such as rheumatoid arthritis, autoimmune hepatitis, primary biliary cirrhosis, autoimmune thyroiditis, Jarocho's disease, pernicious anemia, autoimmune neuropathies, vasculitis, celiac disease and bullous disease. Please contact your local [employer] laboratory if you are interested in additional testing. 05/16/2024 10:2 5 AM TELEGRAPHIC INSTRUMENT SUPERVISOR 05/16/2024 10:25 AM TELEGRAPHIC INSTRUMENT SUPERVISOR Elina Alla Donnytravis DO SEND OUTS Final Result [facility] [address] [place] [address], [employer] [address] [place] [address] * (ABNORMAL) ADALGISA CASCADE(ADALGISA,IFA W/RFL AND REFL 11 AB CASCADE) ([facility]) (05/16/2024 10:25 AM TELEGRAPHIC INSTRUMENT SUPERVISOR) ADALGISA SCREEN, IFA POSITIVE( A) NEGATIVE [facility] Comment: ADALGISA IFA is a first line screen for detecting the presence of up to approximately 150 autoantibodies in various autoimmune diseases. A positive ADALGISA IFA result is suggestive of autoimmune disease and reflexes to titer, pattern and the 3 tiered Multiplex 11 Antibody [place]. Testing in the [place] stops at the first positive result, and does not preclude additional positive results. Further laboratory testing may be considered if clinically indicated. For additional information, please refer to http://education.[employer]/faq/ZIP036 (This link is being provided for informational/ educational purposes only.) Blood BLOOD SPECIMEN / Unknown 05/16/2024 10:25 AM TELEGRAPHIC INSTRUMENT SUPERVISOR 05/16/2024 10:25 AM TELEGRAPHIC INSTRUMENT SUPERVISOR Watson Monroe MD SEND OUTS Final Result [facility] [address] [facility] [place] [address], [place] [phone] [facility] [address] [place] [address] * THYROGLOBULIN ANTIBODY (05/16/2024 10:25 AM TELEGRAPHIC INSTRUMENT SUPERVISOR) THYROGLOBULIN ANTIBODIES 1 < or = 1 IU/mL [facility] Blood BLOOD SPECIMEN / Unknown 05/16/2024 10:25 AM TELEGRAPHIC INSTRUMENT SUPERVISOR 05/16/2024 10:25 AM TELEGRAPHIC INSTRUMENT SUPERVISOR Watson Monroe MD SEND OUTS Final Result Performing Organization Address [facility] Co de Phone Number [facility] [employer] [facility] [address] [place] [address], [place] [phone] [facility] [address] [place] [address] * ANTI ALICIA 1 (05/16/2024 10:25 AM TELEGRAPHIC INSTRUMENT SUPERVISOR) ALICIA-1 ANTIBODY <1.0 NEG <1.0 NEG AI [facility] Blood BLOOD SPECIMEN / Unknown 05/16/2024 10:25 AM TELEGRAPHIC INSTRUMENT SUPERVISOR 05/16/2024 10:25 AM TELEGRAPHIC INSTRUMENT SUPERVISOR Elina Jeronimo DO SEND OUTS Final Result [facility] [employer] [facility] [address] [facility] [place] [address], [place] [phone] [facility] [address] [place] [address] * ANTISCLERODERMA 70 ANTIBODIES (05/16/2024 10:25 AM TELEGRAPHIC INSTRUMENT SUPERVISOR) SCL-70 ANTIBODY <1.0 NEG <1.0 NEG AI [facility] Blood BLOOD SPECIMEN / Unknown 05/16/2024 10:25 AM TELEGRAPHIC INSTRUMENT SUPERVISOR 05/16/2024 10:25 AM TELEGRAPHIC INSTRUMENT SUPERVISOR Elina Alla Hinesqra DO SEND OUTS Final Result Performing Organization Address [facility]/ZIP Co de Phone Number [facility] [address] [place] [address], [place] [phone] [facility] [address] [place] [address] * (ABNORMAL) LICENSED NUCLEAR OPERATOR ANTIBODY (05/16/2024 10:25 AM TELEGRAPHIC INSTRUMENT SUPERVISOR) LICENSED NUCLEAR OPERATOR ANTIBODY 1.8 POS(A) <1.0 NEG AI [facility] Blood BLOOD SPECIMEN / Unknown 05/16/2024 10:25 AM TELEGRAPHIC INSTRUMENT SUPERVISOR 05/16/2024 10:25 AM TELEGRAPHIC INSTRUMENT SUPERVISOR [employer] Kandace DO SEND OUTS Final Result Performing Organization Address [facility]/ZIP Co de Phone Number [facility] [address] [place] [address], [place] [phone] [facility] [address] [place] [address] * ANTI-JAEGER (05/16/2024 10:25 AM TELEGRAPHIC INSTRUMENT SUPERVISOR) SM ANTIBODY <1.0 NEG <1.0 NEG AI [facility] Blood BLOOD SPECIMEN / Unknown 05/16/2024 10:25 AM TELEGRAPHIC INSTRUMENT SUPERVISOR 05/16/2024 10:25 AM TELEGRAPHIC INSTRUMENT SUPERVISOR Elina Alla Donnyqra DO SEND OUTS Final Result Performing Organization Address [facility]/ZIP Co de Phone Number [facility] [address] [place] [address], [place] [phone] [facility] [address] [place] [address] * (ABNORMAL) SJOGRENS ANTIBODIES (05/16/2024 10:25 AM TELEGRAPHIC INSTRUMENT SUPERVISOR) SJOGREN'S ANTIBODY (SS-A) 3.4 POS(A) <1.0 NEG AI [facility] SJOGREN'S ANTIBODY (SS-B) <1.0 NEG <1.0 NEG AI [facility] olele Sr Blood BLOOD SPECIMEN / Unknown 05/16/2024 10:25 AM TELEGRAPHIC INSTRUMENT SUPERVISOR 05/16/2024 10:25 AM TELEGRAPHIC INSTRUMENT SUPERVISOR us Elina Alla Donnyspeedy DO SEND OUTS Final Result [facility] [address] [place] [address], [employer] [address] [place] [address] * BETA 2 GLYCOPROTEIN I OLGA LIDIA (05/16/2024 10:25 AM TELEGRAPHIC INSTRUMENT SUPERVISOR) B2 GLYCOPROTEIN I (IGG)AB <2.0 U/mL [employer] merle Sr Comment: Value Interpretation ----- < [...] aging. For additional information, please refer to http://education.Mimoona/faq/CVV562 (This link is being provided for informational/ educational purposes only.) B2 GLYCOPROTEIN I (IGM)AB 4.2 U/mL [employer] merle Sr Comment: Value Interpretation ----- < [...] aging. For additional information, please refer to http://Sproutel/faq/KHJ688 (This link is being provided for informational/ educational purposes only.) B2 GLYCOPROTEIN I (IGA)AB <2.0 U/mL [employer] merle Sr Comment: Value Interpretation ----- < [...] aging. For additional information, please refer to http://[employer].Mimoona/faq/JNQ971 (This link is being provided for informational/ educational purposes only.) Blood BLOOD SPECIMEN / Unknown 05/16/2024 10:25 AM TELEGRAPHIC INSTRUMENT SUPERVISOR 05/16/2024 10:25 AM TELEGRAPHIC INSTRUMENT SUPERVISOR Watson Monroe MD SEND OUTS Final Result Performing Organization Address [facility]/ZIP Co de Phone Number [facility] [address] [place] [address], [place] [phone] [facility] [address] [place] [address] * CYCLIC CITRULLINE PEPTIDE (05/16/2024 10:25 AM TELEGRAPHIC INSTRUMENT SUPERVISOR) CYCLIC CITRULLINATED PEPTIDE (CCP) AB (IGG) <16 UNITS [employer] merle Sr Comment: Reference Range Negative: <20 Weak Positive: 20-39 Moderate Positive: 40-59 Strong Positive: >59 Blood BLOOD SPECIMEN / Unknown 05/16/2024 10:25 AM TELEGRAPHIC INSTRUMENT SUPERVISOR 05/16/2024 10:25 AM TELEGRAPHIC INSTRUMENT SUPERVISOR Elinacherie Jeronimo DO SEND OUTS Final Result Performing Organization Address [facility] Co de Phone Number [facility] [address] [place] [address], [place] [phone] [facility] [address] [place] [address] * CARDIOLIPIN ANTIBODY (05/16/2024 10:25 AM TELEGRAPHIC INSTRUMENT SUPERVISOR) CARDIOLIPIN AB (IGA) <2.0 APL-U/mL [employer] merle Sr Comment: Value Interpretation ----- < 20.0 Antibody not detected > or = 20.0 Antibody detected CARDIOLIPIN AB (IGG) <2.0 GPL-U/mL [employer] merle Sr Comment: Value Interpretation ----- < 20.0 Antibody not detected > or = 20.0 Antibody detected CARDIOLIPIN AB (IGM) 5.0 MPL-U/mL [employer] bloom Remberto Comment: Value Interpretation ----- < [...] aging. For additional information, please refer to http://education.Mimoona/faq/CUO317 (This link is being provided for informational/ educational purposes only.) Blood BLOOD SPECIMEN / Unknown 05/16/2024 10:25 AM TELEGRAPHIC INSTRUMENT SUPERVISOR 05/16/2024 10:25 AM TELEGRAPHIC INSTRUMENT SUPERVISOR us Watson Monroe MD SEND OUTS Final Result Performing Organization Address [facility]/ZIP Co de Phone Number [facility] [address] [place] [address], [facility] [address] [place] [address] * THYROPEROXIDASE ANTIBODY (05/16/2024 10:25 AM TELEGRAPHIC INSTRUMENT SUPERVISOR) THYROID PEROXIDASE ANTIBODIES <1 <9 IU/mL [facility]to Blood BLOOD SPECIMEN / Unknown 05/16/2024 10:25 AM TELEGRAPHIC INSTRUMENT SUPERVISOR 05/16/2024 10:25 AM TELEGRAPHIC INSTRUMENT SUPERVISOR Watosn Monroe MD SEND OUTS Final Result Performing Organization Address City/[facility]/ZIP Co de Phone Number [facility] [address] [place] [address], [place] [phone] [facility] [address] [place] [address] * C3 COMPLEMENT (05/16/2024 10:25 AM TELEGRAPHIC INSTRUMENT SUPERVISOR) COMPLEMENT COMPONENT C3C 119 83 - 193 mg/dL [facility] Blood BLOOD SPECIMEN / Unknown 05/16/2024 10:25 AM TELEGRAPHIC INSTRUMENT SUPERVISOR 05/16/2024 10:25 AM TELEGRAPHIC INSTRUMENT SUPERVISOR Elina Alla Donnyq DO CHEMISTRY Final Result [facility] [address] [place] [address], [place] [phone] [facility] [address] [facility] [place] [address] * C4 COMPLEMENT (05/16/2024 10:25 AM TELEGRAPHIC INSTRUMENT SUPERVISOR) COMPLEMENT COMPONENT C4C 19 15 - 57 mg/dL [facility] Blood BLOOD SPECIMEN / Unknown 05/16/2024 10:25 AM TELEGRAPHIC INSTRUMENT SUPERVISOR 05/16/2024 10:25 AM TELEGRAPHIC INSTRUMENT SUPERVISOR Elina Hinesq DO CHEMISTRY Final Result [facility] [address] [facility] [place] [address], [place] [phone] [facility] [address] [facility] [place] [address] * POTASSIUM (05/16/2024 10:25 AM TELEGRAPHIC INSTRUMENT SUPERVISOR) POTASSIUM 3.7 3.5 - 5.3 mmol/L [facility] Blood BLOOD SPECIMEN / Unknown 05/16/2024 10:25 AM TELEGRAPHIC INSTRUMENT SUPERVISOR 05/16/2024 10:25 AM TELEGRAPHIC INSTRUMENT SUPERVISOR Watson Monroe MD CHEMISTRY Final Result Performing Organization Address [facility]/ZIP Co de Phone Number [facility] [address] [place] [address], [place] [phone] [facility] [address] [facility] [place] [address] * CREATININE (05/16/2024 10:25 AM TELEGRAPHIC INSTRUMENT SUPERVISOR) CREATININE 0.72 0.50 - 0.97 mg/dL [facility] EGFR 109 > OR = 60 mL/min/1.73 m2 [facility] Blood BLOOD SPECIMEN / Unknown 05/16/2024 10:25 AM TELEGRAPHIC INSTRUMENT SUPERVISOR 05/16/2024 10:25 AM TELEGRAPHIC INSTRUMENT SUPERVISOR us Watson Monroe MD CHEMISTRY Final Result Performing Organization Address [facility] de Phone Number [facility] [address] [place] [address], [place] [phone] [facility] [address] [facility] [place] [address] * KUTP-IMNTHS-RHI (05/16/2024 10:25 AM TELEGRAPHIC INSTRUMENT SUPERVISOR) Pathologist [facility] DNA (DS) ANTIBODY 1 IU/mL [facility] Comment: IU/mL Interpretation < or = 4 Negative 5-9 Indeterminate > or = 10 Positive Blood BLOOD SPECIMEN / Unknown 05/16/2024 10:25 AM TELEGRAPHIC INSTRUMENT SUPERVISOR 05/16/2024 10:25 AM TELEGRAPHIC INSTRUMENT SUPERVISOR us Elina Jeronimo DO SEND OUTS Final Result Performing Organization Address [facility]/ZIP Co de Phone Number [facility] [address] [place] [address], [place] [phone] [facility] [address] [facility] [place] [address] * ALT (SGPT) (05/16/2024 10:25 AM TELEGRAPHIC INSTRUMENT SUPERVISOR) ALT 19 6 - 29 U/L [facility] Blood BLOOD SPECIMEN / Unknown 05/16/2024 10:25 AM TELEGRAPHIC INSTRUMENT SUPERVISOR 05/16/2024 10:25 AM TELEGRAPHIC INSTRUMENT SUPERVISOR Watson Monroe MD CHEMISTRY Final Result [facility] [address] [facility] [place] [address], [place] [phone] [facility] [address] [facility] [place] [address] * AST (SGOT) (05/16/2024 10:25 AM TELEGRAPHIC INSTRUMENT SUPERVISOR) AST 17 10 - 30 U/L [facility] Blood BLOOD SPECIMEN / Unknown 05/16/2024 10:25 AM TELEGRAPHIC INSTRUMENT SUPERVISOR 05/16/2024 10:25 AM TELEGRAPHIC INSTRUMENT SUPERVISOR Watson Monroe MD CHEMISTRY Final Result Performing Organization Address City/[facility]/ZIP Co de Phone Number [facility] [address] [place] [address], [place] [phone] [facility] [address] [facility] [place] [address] * CK TOTAL (05/16/2024 10:25 AM TELEGRAPHIC INSTRUMENT SUPERVISOR) CREATINE KINASE, TOTAL 66 20 - 239 U/L [facility] Blood BLOOD SPECIMEN / Unknown 05/16/2024 10:25 AM TELEGRAPHIC INSTRUMENT SUPERVISOR 05/16/2024 10:25 AM TELEGRAPHIC INSTRUMENT SUPERVISOR Watson Monroe MD CHEMISTRY Final Result [facility] [address] [place] [address], [place] [phone] [facility] [address] * HPV HIGH RISK (05/25/2021 10:51 AM TELEGRAPHIC INSTRUMENT SUPERVISOR) TYPE 16 Negative Negative 05/27/2021 11:43 AM TELEGRAPHIC INSTRUMENT SUPERVISOR [facility] TYPE 18 Negative Negative 05/27/2021 11:43 AM TELEGRAPHIC INSTRUMENT SUPERVISOR [facility] OTHER HIGH RISK TYPES Negative Negative 05/27/2021 11:43 AM TELEGRAPHIC INSTRUMENT SUPERVISOR [facility] Other (Cervical) Non-Blood / Unknown 05/25/2021 10:51 AM TELEGRAPHIC INSTRUMENT SUPERVISOR 05/26/2021 8:23 AM TELEGRAPHIC INSTRUMENT SUPERVISOR Narrative [facility] - 05/27/2021 11:43 AM TELEGRAPHIC INSTRUMENT SUPERVISOR HPV types 16, 18, 31, 33, 35, 39, 45, 51, 52, 56, 58, 59, 66 and 68 DNA were undetectable or below the pre-set threshold. Methodology: Main Dion 4800 HPV Test Veronica TANNER MICROBIOLOGY Final Result [facility] [address] [place] [address], * ANTI HCV (07/28/2008 12:46 PM CDT) ANTI HCV Non-reacti ve [facility] Blood specimen (specimen) BLOOD SPECIMEN / Unknown 07/28/2008 12:46 PM CDT 07/28/2008 12:40 PM CDT Dalia TANNER SEND OUTS Final Result [facility] [place]NAL [place]IP [address] [place] [address] from Last 3 Months or Most Recently Relevant to Health Maintenance Additional Health Concerns Infection Onset Date Last Indicated COVID-19 07/30/2024 07/30/2024 Insurance [employer] Advance Directives Documents on File Type Date Recorded Patient Cook Helper Juice Expl anation Healthcare Directive 02/13/2021 021 * [...] 3:48 PM 06/26/2007 4:28 PM Care Teams Naphthalene Still Operator Relationship Specialty Start Date End Date Elina Jeronimo DO [address] [place] [address] PCP - General Family Practice 01/07/22
--- OUTSIDE RECORDS SUMMARY | 2024-08-05 04:19 | XMS_ITS | Continuity of Care Document ---
Author Name [facility] Organization [facility] Care Team Providers Care Commercial Lines Insurance Agent Name Role Phone [facility] Unavailable Unavailable Medications Combined list of outpatient [...] Site Reaction Lot Number CVX Code Drug Molder Vacuum Status Comments Source influenza, live, intranasal,qu adrivalent 2014 [id number] [employer] comple t ed influenza , live, intranasa l,quadriv alent 03/19/15 Given Ambulat ory Pharmac y influenza, live, intranasal,qu adrivalent 2013 [id number] [employer] comple t ed influenza , live, intranasa l,quadriv alent 03/21/14 Given Ambulat ory Pharmac y hepatitis B adult vaccine 2013 zzLef Arm [id number] [employer] [facility] ed hepatitis B adult vaccine 03/21/14 Given Ambulat ory Pharmac y measles/mumps /rubella virus vaccine 2013 zzLef t Thigh [id number] Merck [employer] Company Inc complet ed [...] purified protein derivative 2012 zzRig ht Arm [id number] sanofi pasteur complet ed Patient Tolerance [...] influenza-H1N 1-09, injectable 2008 zzRig ht Arm [id number] 1A 127 Novartis Pharmaceutica ls complet ed Novel influenza -[id number], injectabl e 03/24/09 Given Ambulat ory Pharmac y influenza virus vaccine,split 2008 zzLef t Arm [id number] 15 sanofi pasteur complet ed influenza [...] up to thelast 18 months, not all [place] non-surgical procedures are included; 2) All procedures [...] at Department of Defense and Veterans Affairs [place] Functional [place] Measurement (FIM) Scale: 1 = Total Assistance (Subject = 0% +), 2 = Maximal Assistance (Subject = 25% +), 3 = Moderate Assistance (Subject = 50% +), 4 = Minimal Assistance (Subject = 75% +), 5 = Supervision, 6 = Modified Valencia (Device), 7 = Complete Valencia (Timely, Safely). Assessment Date/Time Source Assessment Type Assessment Skill Assessment Score Assessment Details No data available for this section
[2024-08-05 04:28] LABS: Basophils Percent Auto 0.3 % (0.0-3.0); Eosinophils Percent Auto 0.3 % (0.0-7.0); Hematocrit 38.4 % (33.0-51.0); Hemoglobin* 12.6 gm/dL (12.0-16.0); Lymphocytes Percent Auto 26.5 % (20-44); Mean Corpuscular HGB Conc 33 gm/dL (32-36); Mean Corpuscular Hemoglobin 28 pg (26-34); Mean Corpuscular Volume 86 fL (80-100); Monocytes Percent Auto 9.2 % (0.0-11.0); Neutrophils Percent Auto 62.7 % (42.0-72.0); Platelet Count* 262 K/uL (140-440); RDW Coefficient of Variation % 13.1 % (11.5-15.5); Red Blood Count 4.46 m/uL (4.00-5.20); White Blood Count* 11.83 K/uL (4.50-11.00)
[2024-08-05 04:29] LABS: Slide Review Reflex No
[2024-08-05 04:40] LABS: Chloride* 104 mmol/L (96-114); Potassium* 3.3 mmol/L (3.6-5.1); Sodium* 137 mmol/L (135-149)
[2024-08-05 04:42] LABS: INR 1.05 (0.91-1.10); Prothrombin Time 14.6 Seconds
[2024-08-05 04:43] LABS: Anion Gap 5 mEq/L (7-15); Blood Urea Nitrogen* 27 mg/dL (5-24); Calcium* 9.6 mg/dL (8.4-10.6); Carbon Dioxide* 28 mmol/L (20-32); Creatinine* 0.7 mg/dL (0.5-1.5); Est. Creatinine Clearance* 103.89; Estimated Glomerular Filt Rate 112 ml/min; Glucose* 99 mg/dL (60-115); Magnesium* 1.9 mg/dL (1.5-2.6)
[2024-08-05 04:53] LABS: NT Pro B Type NatriureticPept* 126 pg/mL
--- NOTE | 2024-08-05 06:48 | ED.NURSE ---
Report given to [facility] nurse, pt will transport as soon as medics are available with a rig. Room number H8062, #[id number]
[2024-08-05] MEDS: ENOXAPARIN 120 MG/0.8 ML INJ 90 MG SUBCUT (06:50)
[2024-08-05 07:42] VITALS: BP 138/72; PULSE 84; RESP 18; TEMP 36.6; O2SAT 97
[2024-08-05 07:52] LABS: Troponin I* < 0.01 ng/mL (0.01-0.04)
== END 2024-08-05 08:56 | disposition home or self-care (01) ==
LOC: ED 04:16
PROVIDERS: Emergency Provider Family Medicine; PCP Family Medicine
DX: U07.1 COVID-19 (principal); Z79.01 Long term (current) use of anticoagulants
CPT/HCPCS: 36415; 71046; 71275; 80048; 83735; 83880; 84484; 85025; 85610; 99284; 99285; J1650; Q9967

== ENCOUNTER 2024-08-05 08:45 | Outpatient (CLI) | payer OTHER, SELFPAY | END 2024-08-05 08:46 | disposition home or self-care (01) | LOC: AMB 08-06 13:54 | PROVIDERS: PCP Family Medicine; Visit Provider Emergency Medicine | DX: U07.1 COVID-19 (principal); R79.1 Abnormal coagulation profile; Z95.2 Presence of prosthetic heart valve | CPT/HCPCS: A0425; A0427 ==